=== PATIENT | female | born 1960 | race Caucasian/White ===

== ENCOUNTER 2016-03-22 17:48 | Inpatient (IN) | payer OTHER ==
[2016-03-22 17:55] VITALS: BMI 20.1
--- NOTE | 2016-03-22 19:51 | PDOC ---
History of Present Illness - General History Source: Patient Exam Limitations: No Limitations - History of Present Illness Initial Comments: 03/22/16 19:59 The patient is a 56 year old female with a significant past medical history of Diabetes, Scleroderma HLD, HTN, Rheumatoid arthritis, carpal tunnel syndrome, and depression who presents to the ED s/p right thumb wound for 2 weeks. Patient reports right thumb wound secondary to burning it while she was cooking. She states she visited Urgent care 4 days ago and was told to have an infection of the right thumb and was prescribed Cephalexin with no relief. She states the wound is progressively worsening and now presents with unbearable pain to the right thumb. Patient reports the right thumb wound does not appear worse than before. She states she has recently been carrying her 7 month old nephew with her right arm and reports pain to her right neck radiating down her right arm. Patient visited her PCP 2 weeks ago and has an appointment with Surgery next Thursday. Patient is right hand dominant. Denies fevers or chills. Denies abdominal pain, nausea, vomiting, or diarrhea. Denies chest pain or shortness of breath. Denies cough. Denies dysuria, frequency, urgency, or hematuria. Denies any other symptoms. Carrying nephew with right hand Allergies: Levofloxacin (fever and hives), indomethacin (fever and hives) <Zabrina Esparza - Last Filed: 03/22/16 21:27> - General History Source: Patient, Old Records Exam Limitations: No Limitations <Rica Russell - Last Filed: 03/22/16 21:29> - General Chief Complaint: Wound Infection Stated Complaint: RT HAND BURN/INFECTED WOUND Time Seen by Provider: 03/22/16 19:30 Past History <Zabrina Esparza - Last Filed: 03/22/16 21:27> - Past Medical History Anemia: Yes Diabetes: Yes Hypercholesterolemia: Yes Other medical history: SCLERADERMA - Psycho/Social/Smoking Cessation Hx Suicidal Ideation: No Smoking History: Never smoked Hx Alcohol Use: No Drug/Substance Use Hx: No Substance Use Type: None <Rica Russell - Last Filed: 03/22/16 21:29> - Past Medical History Allergies/Adverse Reactions: Allergies Allergy/AdvReac Type Severity Reaction Status Date / Time indomethacin [From Indocin] Allergy Hives Verified 03/22/16 17:55 indomethacin sodium Allergy Hives Verified 03/22/16 17:55 [From Indocin] levofloxacin [From Levaquin] Allergy Hives Verified 03/22/16 17:55 Home Medications: Ambulatory Orders Atorvastatin Calcium [Lipitor] 20 mg PO HS 03/22/16 Cephalexin [Keflex] 500 mg PO TID 03/22/16 Citalopram Hydrobromide [Celexa -] 30 mg PO HS 03/22/16 Cyclobenzaprine HCl [Flexeril -] 10 mg PO TID PRN 03/22/16 Dexlansoprazole [Dexilant] 60 mg PO DAILY 03/22/16 Fenofibrate Nanocrystallized [Tricor] 145 mg PO DAILY 03/22/16 Glipizide 10 mg PO BID 03/22/16 Metoclopramide HCl [Reglan] 10 mg PO TID PRN 03/22/16 Mycophenolate Mofetil [Cellcept] 1,500 mg PO BID 03/22/16 Nifedipine [Procardia Xl] 30 mg PO DAILY 03/22/16 Ondansetron HCl [Zofran] 8 mg PO Q8H PRN 03/22/16 Prazosin HCl 1 mg PO BID 03/22/16 Prednisolone [Millipred] 5 mg PO DAILY 03/22/16 Ramipril 5 mg PO DAILY 03/22/16 Tramadol HCl 50 mg PO BID 03/22/16 Zolpidem Tartrate [Ambien] 10 mg PO HS PRN 03/22/16 Review of Systems - Review of Systems Able to Perform ROS?: Yes Comments:: 03/22/16 19:59 GENERAL/CONSTITUTIONAL: No fever or chills. No weakness. HEAD, EYES, EARS, NOSE AND THROAT: No change in vision. No ear pain or discharge. No sore throat. CARDIOVASCULAR: No chest pain or shortness of breath. RESPIRATORY: No cough, wheezing, or hemoptysis. GASTROINTESTINAL: No nausea, vomiting, diarrhea or constipation. GENITOURINARY: No dysuria, frequency, or change in urination. MUSCULOSKELETAL: + neck pain, right arm pain. No joint or muscle swelling or pain. No back pain. SKIN: + right thumb lesion NEUROLOGIC: No headache, vertigo, loss of consciousness, or change in strength/ sensation. ENDOCRINE: No increased thirst. No abnormal weight change. HEMATOLOGIC/LYMPHATIC: No anemia, easy bleeding, or history of blood clots. ALLERGIC/IMMUNOLOGIC: No hives or skin allergy. All Other Systems: Reviewed and Negative <Zabrina Esparza - Last Filed: 03/22/16 21:27> *Physical Exam - Vital Signs Last Vital Signs Temp Pulse Resp BP Pulse Ox 97.6 F 115 H 20 111/81 98 03/22/16 17:51 03/22/16 17:51 03/22/16 17:51 03/22/16 17:51 03/22/16 17:51 - Physical Exam Comments: 03/22/16 20:00 GENERAL: Awake, alert, and fully oriented, in no acute distress HEAD: No signs of trauma EYES: PERRLA, EOMI, sclera anicteric, conjunctiva clear ENT: Auricles normal inspection, hearing grossly normal, nares patent, oropharynx clear without exudates. Moist mucosa NECK: Normal ROM, supple, no lymphadenopathy, JVD, or masses LUNGS: Breath sounds equal, clear to auscultation bilaterally. No wheezes, and no crackles HEART: + Fast rate, Regular rhythm, normal S1 and S2, no murmurs, rubs or gallops ABDOMEN: Soft, nontender, normoactive bowel sounds. No guarding, no rebound. No masses EXTREMITIES: Normal range of motion, no edema. No clubbing or cyanosis. No cords, erythema, or tenderness NEUROLOGICAL: Cranial nerves II through XII grossly intact. Normal speech, normal gait SKIN: + ulcerative lesion ot the tip of right thumb. It is necrotic with surrounding edema and erythema, encompasses entire right thumb but not the right hand, radial pulses intact. <Zabrina Esparza - Last Filed: 03/22/16 21:27> - Vital Signs Last Vital Signs Temp Pulse Resp BP Pulse Ox 97.6 F 115 H 20 111/81 98 03/22/16 17:51 03/22/16 17:51 03/22/16 17:51 03/22/16 17:51 03/22/16 17:51 <Rica Russell - Last Filed: 03/22/16 21:29> Heart Score/ECG Review #1 03/22/16 21:27 Reviewed and Interpreted by Dr. Murano Impression: Normal sinus rhythm at at 95 bpm Normal axis deviation No acute ST segment changes <Zabrina Esparza - Last Filed: 03/22/16 21:27> ED Treatment Course - LABORATORY CBC & Chemistry Diagram: 03/22/16 20:10 03/22/16 20:10 <Zabrina Esparza - Last Filed: 03/22/16 21:27> - LABORATORY CBC & Chemistry Diagram: 03/22/16 20:10 03/22/16 20:10 <Rica Russell - Last Filed: 03/22/16 21:29> Medical Decision Making - Medical Decision Making 03/22/16 19:49 56-year-old right hand dominant female with history of scleroderma on chronic prednisone, diabetes, depression, hypertension who presents to the emergency department with 2-3 week history of worsening wound to her right thumb in spite of antibiotics for the past 4 days. Differential diagnosis includes but is not limited to: Osteomyelitis, cellulitis, underlying abscess, sepsis, gangrene, dehydration, electrolyte abnormality, toxic/metabolic derangement. Plan: 1. Labs 2. Plain films of the right hand and chest 3. Urine 4. IV antibiotics 5. Will admit for failed outpatient treatment of cellulitis to the right thumb 6. Observe and reevaluate 7. Pain management 03/22/16 21:28 Addendum: The labs were remarkable for an elevated white blood cell count. The plain films do not appear to have any gas in the soft tissue. I've endorsed the patient to [facility] for IV antibiotics and hand consult for failed outpatient treatment of right thumb cellulitis. <Rica Russell - Last Filed: 03/22/16 21:29> *DC/Admit/Observation/Transfer - Attestations Scribe Attestion: 03/22/16 20:00 Documentation prepared by Zabrina Esparza, acting as medical oncologist for Rica Russell MD <Zabrina Esparza - Last Filed: 03/22/16 21:27> - Discharge Dispostion Admit: Yes - Attestations Physician Attestion: 03/22/16 19:51 I, Dr. Rica Russell, attest that the scribes documentation that appears above has been prepared under my direction and personally reviewed by me in its entirety. I confirmed that the note above accurately reflects all work, treatment, procedures, and medical decision-making performed by me. <Rica Russell - Last Filed: 03/22/16 21:29> Diagnosis at time of Disposition: Cellulitis of right thumb - Discharge Dispostion Condition at time of disposition: Stable - Referrals Referrals: Clinton Garcia MD [Primary Care Provider] -
[2016-03-22] MEDS ORDERED: SODIUM CHLORIDE 1,000 ML IV STA (19:55)
[2016-03-22] MEDS ORDERED: OXYCODONE/APAP 5/325MG COMBO TABLET PO ONE (20:18)
[2016-03-22] MEDS ORDERED: CLINDAMYCIN IVPB 300 MG in DEXTROSE 5%-WATER - 48 ML IVPB ONE (20:18)
[2016-03-22] MEDS ORDERED: OXYCODONE/APAP 5/325MG COMBO TABLET ONE (20:20)
[2016-03-22] MEDS ORDERED: CLINDAMYCIN PHOSPHATE 600 MG/4 ML VIAL ONE (20:20)
[2016-03-22 20:25] LABS: BASOPHIL 0.6 % (0-2.0); EOSINOPHIL 0.3 % (0-4.5); MCH 27.1 pg (25.7-33.7); MCHC 31.6 g/dl (32.0-36.0); MEAN CELL VOLUME 85.8 fl (80-96); NEUTROPHILS 77.7 % (42.8-82.8); PLATELET COUNT 490 K/MM3 (134-434); WHITE BLOOD COUNT 12.4 K/mm3 (4.0-10.0)
[2016-03-22 20:53] LABS: CALCIUM 8.8 mg/dL (8.5-10.1); CREATININE 0.6 mg/dL (0.55-1.02)
[2016-03-22 21:05] LABS: URINE APPEARANCE CLEAR; URINE BILIRUBIN NEGATIVE (NEGATIVE); URINE BLOOD NEGATIVE (NEGATIVE); URINE COLOR YELLOW; URINE GLUCOSE (UA) 3+ (NEGATIVE); URINE KETONE TRACE (NEGATIVE); URINE LEUK ESTERASE NEGATIVE (NEGATIVE); URINE NITRITE NEGATIVE (NEGATIVE); URINE PROTEIN NEGATIVE (NEGATIVE); URINE UROBILINOGEN NEGATIVE E.U./dl (0.2-1.0)
[2016-03-22 21:33] LABS: ERYTHROCYTE SEDIMENTATION RATE 25 mm/hr (0-30)
[2016-03-22 21:38] LABS: MAGNESIUM 1.8 mg/dL (1.8-2.4); PHOSPHOROUS 3.6 mg/dL (2.5-4.9)
[2016-03-22] MEDS ORDERED: ONDANSETRON 4 MG TABLET PO PRN (21:56)
[2016-03-22] MEDS ORDERED: ZOLPIDEM TARTRATE 5 MG TABLET PO PRN (21:56)
[2016-03-22] MEDS ORDERED: METOCLOPRAMIDE HCL 10 MG TABLET (FP) PO PRN (21:56)
[2016-03-22] MEDS ORDERED: CYCLOBENZAPRINE HCL 10 MG TABLET (FP) PO PRN (21:56)
--- NOTE | 2016-03-22 22:05 | HP ---
Admitting History and Physical - Admission Chief Complaint: R thumb infection/pain History of Present Illness: 56 yo white f with hx of scleroderma, htn, hlp, dm, who presents to the er for eval of R thumb pain and redness. she reports due to her scleroderma she gets ulcers on her hands and 2 weeks ago she suffered a burn to her R thumb while getting something from the oven. She went to her PCP on mar 13 who referred her to a hand surgeon, but the pain in the hand progressively got worse and she went to where she was prescribed Keflex. Despite taking the Keflex the finger did not improve. She reports having some decrease ROM in the finger more than usual, increased redness and pain as well. She states the pain is not relieved with her current pain medication. She states it is 8/10 constant and sharp. She denies fever, chill, sweats, cough, nausea, vomiting, diarrhea. She denies chest pain, sob, syncope, palpitations. She denies dysuria, abdominal pain, rash. pmh/psh-scleroderma, htn, hlp, dm, RA, depression social- denies alcohol, tobacco, rec drugs famhx- dad-dm pcp- [place] [facility]- [facility]- [facility] Ros neg except for hpi physical general- thin, in nad hent- at/nc, jennifer, neck supple, trachea midline, no lymphadenopathy resp- no cough, no rales, no wheeze, no ronchi, lungs ctab cards- s1s2 heard, no rubs, no leg edema, extremity pulses +2, RRR skin- Redness, swelling, and eschar to palmar aspect of distal R thumb gi- soft non tender, no rebound, no guarding, no rigidity, no pulsating mass, no distention neuro- cn2-12 intact, jnenifer, speech clear, no seizures, no facial droop pysch- calm, cooperative, no agitation, normal affect musk- decreased flexion/arom to R thumb. swelling to R thumb problem list cellulitis to R thumb dm scleroderma hlp htn sirs criteria depression RA imaging: ekg reviewed ct of thumb pending a/p 56 yo white f with hx of scleroderma, htn, hlp, dm, RA, depression who presents to the er for eval of R thumb pain and redness admitted for evaluation of their emergent condition. 1. Cellulitis to R thumb Pt reportedly had burn accident superimposed on previous ulcer of thumb 2 weeks ago and has had progressive worsening of symptoms despite Keflex which was started ~4 days ago Given Clinda in the ER X ray of thumb negative will check CT finger r/o abscess Given the pt is suppressive therapy will give zosyn and Vanc ID consult Local wound care Pain control Check CRP Consider hand surgeon eval opt 2. DM check A1c Monitor labs SSI 3. HTN Continue home meds 4. HLP Cont home meds 5. Scleroderma Cont home meds 6. Depression Cont home meds 7. RA Cont home meds FEN Diabetic diet DVT prophy OOB, SCD, Hep sq Dispo- will require >2mn stay for acute cellulitis History Source: Patient Limitations to Obtaining History: No Limitations - Smoking History Smoking history: Never smoked - Alcohol/Substance Use Hx Alcohol Use: No Home Medications - Allergies Allergies/Adverse Reactions: Allergies Allergy/AdvReac Type Severity Reaction Status Date / Time indomethacin [From Indocin] Allergy Hives Verified 03/22/16 17:55 indomethacin sodium Allergy Hives Verified 03/22/16 17:55 [From Indocin] levofloxacin [From Levaquin] Allergy Hives Verified 03/22/16 17:55 - Home Medications Home Medications: Ambulatory Orders Atorvastatin Calcium [Lipitor] 20 mg PO HS 03/22/16 Cephalexin [Keflex] 500 mg PO TID 03/22/16 Citalopram Hydrobromide [Celexa -] 30 mg PO HS 03/22/16 Cyclobenzaprine HCl [Flexeril -] 10 mg PO TID PRN 03/22/16 Dexlansoprazole [Dexilant] 60 mg PO DAILY 03/22/16 Fenofibrate Nanocrystallized [Tricor] 145 mg PO DAILY 03/22/16 Glipizide 10 mg PO BID 03/22/16 Metoclopramide HCl [Reglan] 10 mg PO TID PRN 03/22/16 Mycophenolate Mofetil [Cellcept] 1,500 mg PO BID 03/22/16 Nifedipine [Procardia Xl] 30 mg PO DAILY 03/22/16 Ondansetron HCl [Zofran] 8 mg PO Q8H PRN 03/22/16 Prazosin HCl 1 mg PO BID 03/22/16 Prednisolone [Millipred] 5 mg PO DAILY 03/22/16 Ramipril 5 mg PO DAILY 03/22/16 Tramadol HCl 50 mg PO BID 03/22/16 Zolpidem Tartrate [Ambien] 10 mg PO HS PRN 03/22/16 Physical Examination Vital Signs: Vital Signs Temperature 97.6 F 03/22/16 17:51 Pulse Rate 115 H 03/22/16 17:51 Respiratory Rate 20 03/22/16 17:51 Blood Pressure 111/81 03/22/16 17:51 O2 Sat by Pulse Oximetry (%) 98 03/22/16 17:51 Labs: CBC, BMP 03/22/16 20:10 03/22/16 20:10 Visit type - Emergency Visit Emergency Visit: Yes ED Registration Date: 03/22/16 Care time: The patient presented to the Emergency Department on the above date and was hospitalized for further evaluation of their emergent condition. - New Patient This patient is new to me today: Yes Date on this admission: 03/23/16 - Critical Care Critical Care patient: No
[2016-03-22] MEDS ORDERED: VANCOMYCIN 1 GRAM (PRE-DOCKED) 250 ML IVPB ONE ×2 (22:33→23:31)
[2016-03-22] MEDS ORDERED: PIPERACILLIN/TAZOB 3.375 GM 50 ML IVPB ONE ×2 (22:33→23:32)
[2016-03-22] MEDS ORDERED: traMADol HCL 50 MG TABLET ONE (23:08)
[2016-03-22] MEDS: ATORVASTATIN CA 20 MG TABLET (FP) PO SCH (23:16)
[2016-03-22] MEDS: CITALOPRAM HYDROBROMIDE 10 MG TABLET (FP) PO SCH (23:16)
[2016-03-22] MEDS: MYCOPHENOLATE MOFETIL 500 MG TABLET PO SCH (23:16)
[2016-03-22] MEDS: PRAZOSIN HCL 1 MG CAPSULE PO SCH (23:17)
[2016-03-22] MEDS: traMADol HCL 50 MG TABLET PO SCH (23:17)
[2016-03-22 23:27] LABS: C-REACTIVE PROTEIN 0.7 MG/DL (0.00-0.3)
[2016-03-23] MEDS: oxyCODONE HCL 5 MG TABLET PO PRN ×2 (03:17→09:09)
[2016-03-23] MEDS ORDERED: morphine CARPU-JECT 2 MG/1 ML DISP.SYRIN IVPB ONE (04:38)
[2016-03-23] MEDS: INSULIN SLIDING SCALE (NOVOLOG) 1 VIAL SQ SCH ×3 (06:12→17:02)
[2016-03-23] MEDS: traMADol HCL 50 MG TABLET PO SCH ×2 (07:57→21:55)
[2016-03-23] MEDS ORDERED: traMADol HCL 50 MG TABLET PO ONE (08:00)
[2016-03-23 09:00] LABS: BASOPHIL 0.8 % (0-2.0); EOSINOPHIL 0.8 % (0-4.5); MCH 28.5 pg (25.7-33.7); MCHC 33.3 g/dl (32.0-36.0); MEAN CELL VOLUME 85.6 fl (80-96); MEAN PLT VOLUME 8.8 fl (7.5-11.1); PLATELET COUNT 436 K/MM3 (134-434); RDW 13.5 % (11.6-15.6); WHITE BLOOD COUNT 7.6 K/mm3 (4.0-10.0)
[2016-03-23] MEDS ORDERED: PT OWN MED DRAWER 7, Y5N ONE ×2 (09:17→19:47)
[2016-03-23] MEDS: RAMIPRIL 5 MG CAPSULE (FP) PO SCH (09:18)
[2016-03-23] MEDS: PANTOPRAZOLE 40 MG TABLET (FP) PO SCH (09:18)
[2016-03-23] MEDS: FENOFIBRIC ACID 135 MG CAP PO SCH (09:18)
[2016-03-23] MEDS: NIFEdipine E.R. 30 MG TABLET (FP) PO SCH (09:18)
[2016-03-23] MEDS: HEPARIN NA (PORCINE) 5,000 UNITS/ML 1ML VIAL SQ SCH ×2 (09:19→21:58)
[2016-03-23 09:22] LABS: ALBUMIN 3.4 g/dl (3.4-5.0); ANION GAP 3 (8-16); BILIRUBIN,TOTAL 0.4 mg/dL (0.2-1.0); CALCIUM 8.6 mg/dL (8.5-10.1); CO2 26 mmol/L (21-32); CREATININE 0.4 mg/dL (0.55-1.02); GLUCOSE,RANDOM 150 mg/dL (74-106); SGOT/AST 20 U/L (15-37); SGPT/ALT 19 U/L (12-78); TOT PROT 6.4 g/dl (6.4-8.2)
[2016-03-23 09:24] LABS: ALK PHOS 57 U/L (45-117)
[2016-03-23] MEDS ORDERED: prednisoLONE SODIUM PHOSPHATE 15 MG/5 ML ORAL SOLN BOTTLE PO SCH (10:00)
[2016-03-23] MEDS: PRAZOSIN HCL 1 MG CAPSULE PO SCH ×2 (10:56→21:58)
[2016-03-23] MEDS: MYCOPHENOLATE MOFETIL 500 MG TABLET PO SCH ×2 (11:08→21:57)
--- NOTE | 2016-03-23 13:20 | EKG ---
Test Reason : Blood Pressure : / mmHG Vent. Rate : 097 BPM Atrial Rate : 097 BPM P-R Int : 144 ms QRS Dur : 082 ms QT Int : 370 ms P-R-T Axes : 064 -46 043 degrees QTc Int : 469 ms NORMAL SINUS RHYTHM LEFT AXIS DEVIATION PROLONGED QT ABNORMAL ECG Confirmed by MD MAGALIE, ALEX ([id number]) on 03/23/2016 1:19:54 PM Referred By: Overread By: ALEX MEJIAS MD
[2016-03-23] MEDS: morphine CARPU-JECT 2 MG/1 ML DISP.SYRIN IVPUSH PRN ×3 (14:50→23:06)
[2016-03-23] MEDS: predniSONE 5 MG TABLET (UD) PO SCH (14:54)
--- NOTE | 2016-03-23 15:11 | CONSULT ---
Consult Consult Specialty:: infectious diseases Reason for Consultation:: infected finger - History of Present Illness Chief Complaint: pain and swelling and burn of the thumb rt History of Present Illness: 56 yo white f with hx of scleroderma, htn, hlp, dm, who presents to the er for eval of R thumb pain and redness. she reports due to her scleroderma she gets ulcers on her hands and 2 weeks ago she suffered a burn to her R thumb while getting something from the oven. patient was started on keflex and as far as she is saying she was evaluated by the hand surgeon patient did not improve inspite of treatment and comes to the hospital with swelling of the finger very tender and redness of the thumb patient hasd imaging studies done except that patient is denying everything and denies any fevers patient is on immunosuppresion and steroids - History Source History Provided By: Patient Limitations to Obtaining History: No Limitations - Alcohol/Substance Use Hx Alcohol Use: No - Smoking History Smoking history: Never smoked Have you smoked in the past 12 months: No Home Medications - Allergies Allergies/Adverse Reactions: Allergies Allergy/AdvReac Type Severity Reaction Status Date / Time indomethacin [From Indocin] Allergy Hives Verified 03/22/16 17:55 indomethacin sodium Allergy Hives Verified 03/22/16 17:55 [From Indocin] levofloxacin [From Levaquin] Allergy Hives Verified 03/22/16 17:55 - Home Medications Home Medications: Ambulatory Orders Atorvastatin Calcium [Lipitor] 20 mg PO HS 03/22/16 Cephalexin [Keflex] 500 mg PO TID 03/22/16 Citalopram Hydrobromide [Celexa -] 30 mg PO HS 03/22/16 Cyclobenzaprine HCl [Flexeril -] 10 mg PO TID PRN 03/22/16 Dexlansoprazole [Dexilant] 60 mg PO DAILY 03/22/16 Fenofibrate Nanocrystallized [Tricor] 145 mg PO DAILY 03/22/16 Glipizide 10 mg PO BID 03/22/16 Metoclopramide HCl [Reglan] 10 mg PO TID PRN 03/22/16 Mycophenolate Mofetil [Cellcept] 1,500 mg PO BID 03/22/16 Nifedipine [Procardia Xl] 30 mg PO DAILY 03/22/16 Ondansetron HCl [Zofran] 8 mg PO Q8H PRN 03/22/16 Prazosin HCl 1 mg PO BID 03/22/16 Prednisolone [Millipred] 5 mg PO DAILY 03/22/16 Ramipril 5 mg PO DAILY 03/22/16 Tramadol HCl 50 mg PO BID 03/22/16 Zolpidem Tartrate [Ambien] 10 mg PO HS PRN 03/22/16 Review of Systems - Review of Systems Constitutional: reports: No Symptoms Eyes: reports: No Symptoms HENT: reports: No Symptoms Neck: reports: No Symptoms Cardiovascular: reports: No Symptoms Respiratory: reports: No Symptoms Gastrointestinal: reports: No Symptoms Musculoskeletal: reports: Joint Pain, Muscle Pain, Other Integumentary: reports: Change in Color, Erythema Neurological: reports: No Symptoms Endocrine: reports: No Symptoms Hematology/Lymphatic: reports: No Symptoms Psychiatric: reports: No Symptoms Physical Exam Vital Signs: Vital Signs Temperature 98.2 F 03/23/16 14:17 Pulse Rate 87 03/23/16 09:00 Respiratory Rate 20 03/23/16 14:17 Blood Pressure 97/63 03/23/16 14:17 O2 Sat by Pulse Oximetry (%) 98 03/23/16 09:00 Constitutional: Yes: Thin, Other Eyes: Yes: Conjunctiva Clear HENT: Yes: Atraumatic, Normocephalic Neck: Yes: Supple Cardiovascular: Yes: Regular Rate and Rhythm Respiratory: Yes: Regular, CTA Bilaterally Gastrointestinal: Yes: Normal Bowel Sounds, Soft Musculoskeletal: Yes: Other Extremities: Yes: WNL Integumentary: Yes: Erythema, Other (scab at the burn site tenderness on the rt thumb) Wound/Incision: Yes: Clean/Dry, Open to air Neurological: Yes: Alert, Oriented Psychiatric: Yes: Alert, Oriented Labs: CBC, BMP 03/23/16 07:30 03/23/16 07:30 Imaging - Results Chest X-ray: Report Reviewed, Image Reviewed X-ray: Report Reviewed, Image Reviewed Cat Scan: Image Reviewed Assessment/Plan . Cellulitis to R thumb 2. DM 3. HTN 4. HLP 5. Scleroderma 6. Depression 7. RA patient quite a serious case of scleroderma and now with burn with some treatment and not improving plan started patient on abx await for hand surgeon to evaluate
--- NOTE | 2016-03-23 15:19 | PN ---
Physical Exam: SUBJECTIVE: Patient seen and examined at bedside. Has severe pain in the right thumb. OBJECTIVE: Vital Signs Period Temp Pulse Resp BP Sys/Fisher Pulse Ox Last 24 Hr 97.5 F-98.2 F 87-92 18-20 97-120/63-83 98-99 GENERAL: The patient is awake, alert, and fully oriented, in mild distress from pain to right thumb. HEAD: Normal with no signs of trauma. EYES: PERRL, extraocular movements intact, sclera anicteric, conjunctiva clear. No ptosis. MOUTH: missing teeth LUNGS: Breath sounds equal, clear to auscultation bilaterally, no wheezes, no crackles, no accessory muscle use. HEART: Regular rate and rhythm, S1, S2 without murmur, rub or gallop. ABDOMEN: Soft, nontender, nondistended, normoactive bowel sounds RIHT HAND: Right thumb swollen and erythematous from base to nail; tip of finger is covered with necrotic-appearing tissue; exquisitely tender EXTREMITIES: 2+ pulses, warm, well-perfused, no edema. NEUROLOGICAL: Cranial nerves II through XII grossly intact. Normal speech, gait not observed. PSYCH: Normal mood, normal affect. SKIN: Thick, hardened, waxy appearing skin Laboratory Results - last 24 hr 03/23/16 03/23/16 03/23/16 05:45 07:30 07:30 WBC 7.6 D RBC 4.24 Hgb 12.1 Hct 36.3 MCV 85.6 MCHC 33.3 RDW 13.5 Plt Count 436 H MPV 8.8 Neutrophils % 72.0 Lymphocytes % 16.5 Monocytes % 9.9 Eosinophils % 0.8 D Basophils % 0.8 Sodium 130 L Potassium 3.7 Chloride 101 Carbon Dioxide 26 Anion Gap 3 L BUN 10 D Creatinine 0.4 L D Creat Clearance w eGFR > 60 POC Glucometer 220 Random Glucose 150 H D Hemoglobin A1c % Calcium 8.6 Total Bilirubin 0.4 AST 20 ALT 19 Alkaline Phosphatase 57 Total Protein 6.4 Albumin 3.4 03/23/16 03/23/16 07:30 11:18 WBC RBC Hgb Hct MCV MCHC RDW Plt Count MPV Neutrophils % Lymphocytes % Monocytes % Eosinophils % Basophils % Sodium Potassium Chloride Carbon Dioxide Anion Gap BUN Creatinine Creat Clearance w eGFR POC Glucometer 251 Random Glucose Hemoglobin A1c % 11.4 H Calcium Total Bilirubin AST ALT Alkaline Phosphatase Total Protein Albumin Active Medications Generic Name Dose Route Start Last Admin Trade Name Freq PRN Reason Stop Dose Admin Atorvastatin Calcium 20 mg 03/22/16 22:00 03/22/16 23:16 Lipitor - PO 20 mg HS RICKY Administration Citalopram Hydrobromide 30 mg 03/22/16 22:00 03/22/16 23:16 Celexa - PO 30 mg HS RICKY Administration Cyclobenzaprine HCl 10 mg 03/22/16 21:56 Flexeril - PO TID PRN PAIN Fenofibric Acid 135 mg 03/23/16 10:00 03/23/16 09:18 Trilipix - PO 135 mg DAILY RICKY Administration Heparin Sodium (Porcine) 5,000 unit 03/23/16 10:00 03/23/16 09:19 Heparin - SQ 5,000 unit BID RICKY Administration Piperacillin Sod/Tazobactam 50 mls @ 100 mls/hr 03/23/16 18:00 Sod 2.25 gm/ Dextrose IVPB Q8H-IV RICKY Insulin Aspart 1 vial 03/23/16 07:00 03/23/16 11:20 Novolog Vial Sliding Scale - SQ 3 units TIDAC RICKY Administration Protocol Metoclopramide HCl 10 mg 03/22/16 21:56 Reglan - PO TID PRN NAUSEA AND/OR VOMITING Morphine Sulfate 2 mg 03/23/16 14:27 03/23/16 14:50 Morphine Injection - IVPUSH 2 mg Q4H PRN Administration PAIN Mycophenolate Mofetil 1,500 mg 03/22/16 22:00 03/23/16 11:08 Cellcept - PO 1,500 mg BID RICKY Administration Nifedipine 30 mg 03/23/16 10:00 03/23/16 09:18 Procardia Xl - PO 30 mg DAILY RICKY Administration Ondansetron HCl 8 mg 03/22/16 21:56 Zofran - PO Q8H PRN NAUSEA AND/OR VOMITING Oxycodone HCl 5 mg 03/22/16 22:03 03/23/16 09:09 Roxicodone - PO 5 mg Q6H PRN Administration SEVERE PAIN Pantoprazole Sodium 40 mg 03/23/16 10:00 03/23/16 09:18 Protonix - PO 40 mg DAILY RICKY Administration Prazosin HCl 1 mg 03/22/16 22:00 03/23/16 10:56 Minipress - PO 1 mg BID RICKY Administration Prednisone 5 mg 03/23/16 14:00 03/23/16 14:54 Deltasone - PO 5 mg DAILY RICKY Administration Ramipril 5 mg 03/23/16 10:00 03/23/16 09:18 Altace - PO 5 mg DAILY RICKY Administration Tramadol HCl 50 mg 03/22/16 22:00 03/23/16 07:57 Ultram - PO 50 mg BID RICKY Administration Zolpidem Tartrate 10 mg 03/22/16 21:56 Ambien - PO HS PRN INSOMNIA ASSESSMENT/PLAN: 56 year old female with a significant PMH of HTN, HLD, scleroderma, RA, DM, carpal tunnel syndrome, and depression. Admitted for cellulitis of right thumb. Cellulitis of right thumb --continue Zosyn (day #1) --hand surgery consult requested --morphine, tylenol, ultram PRN for pain Hypertension --continue prazosin, ramipril, nifedipine Hyperlipidemia --continue Lipitor, fenofibric acid Scleroderma --continue Cellcept, prednisone, cyclobenzaprine, reglan, Zofran DM --HgbA1C 11.4 --Novolog sliding scale coverage Carpal tunnel syndrome Depression --continue citalopram F/E/N Fluids: PO intake adequate Electrolytes: replete as indicated Nutrition: diabetic low sodium diet DVT prophylaxis: subq heparin, oob, ambulation Dispo: continues to require inpatient care. Full Code. Visit type - Emergency Visit Emergency Visit: Yes ED Registration Date: 03/22/16 Care time: The patient presented to the Emergency Department on the above date and was hospitalized for further evaluation of their emergent condition. - New Patient This patient is new to me today: Yes Date on this admission: 03/23/16 - Critical Care Critical Care patient: No
[2016-03-23] MEDS ORDERED: AMPICILLIN NA/SULBACTAM NA 3 GM in SODIUM CHLORIDE 100 ML IVPB SCH (18:00)
[2016-03-23] MEDS: PIPERACILLIN/TAZOB 2.25 GM 50 ML IVPB SCH (18:24)
[2016-03-23] MEDS: CITALOPRAM HYDROBROMIDE 10 MG TABLET (FP) PO SCH (21:55)
[2016-03-23] MEDS: ATORVASTATIN CA 20 MG TABLET (FP) PO SCH (21:56)
[2016-03-23] MEDS ORDERED: BACITRACIN 30 GM TUBE TOPICAL OINTMENT TP SCH (22:00)
[2016-03-24] MEDS: PIPERACILLIN/TAZOB 2.25 GM 50 ML IVPB SCH ×3 (01:21→17:36)
[2016-03-24] MEDS ORDERED: INSULIN (NOVOLOG) ASPART 100 UNITS/ML 10ML VIAL ONE ×2 (06:25→17:46)
[2016-03-24] MEDS: INSULIN SLIDING SCALE (NOVOLOG) 1 VIAL SQ SCH ×3 (06:28→17:48)
[2016-03-24] MEDS: morphine CARPU-JECT 2 MG/1 ML DISP.SYRIN IVPUSH PRN ×3 (06:33→17:30)
[2016-03-24] MEDS ORDERED: PT OWN MED DRAWER 7, Y5N ONE (09:59)
[2016-03-24] MEDS: RAMIPRIL 5 MG CAPSULE (FP) PO SCH (10:08)
[2016-03-24] MEDS: predniSONE 5 MG TABLET (UD) PO SCH (10:08)
[2016-03-24] MEDS: traMADol HCL 50 MG TABLET PO SCH (10:09)
[2016-03-24] MEDS: PRAZOSIN HCL 1 MG CAPSULE PO SCH (10:11)
[2016-03-24] MEDS: NIFEdipine E.R. 30 MG TABLET (FP) PO SCH (10:11)
[2016-03-24] MEDS: MYCOPHENOLATE MOFETIL 500 MG TABLET PO SCH (10:11)
[2016-03-24] MEDS: PANTOPRAZOLE 40 MG TABLET (FP) PO SCH (10:11)
[2016-03-24] MEDS: FENOFIBRIC ACID 135 MG CAP PO SCH (10:11)
[2016-03-24] MEDS: HEPARIN NA (PORCINE) 5,000 UNITS/ML 1ML VIAL SQ SCH (10:12)
[2016-03-24 10:25] LABS: BASOPHIL 0.6 % (0-2.0); EOSINOPHIL 0.6 % (0-4.5); MCH 28.1 pg (25.7-33.7); MCHC 32.8 g/dl (32.0-36.0); MEAN CELL VOLUME 85.8 fl (80-96); MEAN PLT VOLUME 8.2 fl (7.5-11.1); NEUTROPHILS 69.9 % (42.8-82.8); PLATELET COUNT 436 K/MM3 (134-434); RDW 13.5 % (11.6-15.6); WHITE BLOOD COUNT 6.9 K/mm3 (4.0-10.0)
[2016-03-24 10:46] LABS: ALBUMIN 3.8 g/dl (3.4-5.0); ANION GAP 9 (8-16); CALCIUM 9.2 mg/dL (8.5-10.1); CO2 27 mmol/L (21-32); CREATININE 0.5 mg/dL (0.55-1.02); GLUCOSE,RANDOM 236 mg/dL (74-106); MAGNESIUM 1.7 mg/dL (1.8-2.4); SGOT/AST 13 U/L (15-37); SGPT/ALT 18 U/L (12-78)
[2016-03-24 10:48] LABS: ALK PHOS 58 U/L (45-117); BILIRUBIN,TOTAL 0.5 mg/dL (0.2-1.0); TOT PROT 6.9 g/dl (6.4-8.2)
[2016-03-24] MEDS ORDERED: MAGNESIUM OXIDE 400 MG TABLET (FP) PO ONE (11:08)
--- NOTE | 2016-03-24 18:04 | DS ---
Physical Exam: SUBJECTIVE: Patient seen and examined. OBJECTIVE: Vital Signs Period Temp Pulse Resp BP Sys/Fisher Pulse Ox Last 24 Hr 97.4 F-98.2 F 92-106 16-18 97-120/57-78 98 PHYSICAL EXAM GENERAL: The patient is awake, alert, and fully oriented, in mild distress from pain to right thumb. HEAD: Normal with no signs of trauma. EYES: PERRL, extraocular movements intact, sclera anicteric, conjunctiva clear. No ptosis. MOUTH: missing teeth LUNGS: Breath sounds equal, clear to auscultation bilaterally, no wheezes, no crackles, no accessory muscle use. HEART: Regular rate and rhythm, S1, S2 without murmur, rub or gallop. ABDOMEN: Soft, nontender, nondistended, normoactive bowel sounds RIHT HAND: Right thumb swollen and erythematous from base to nail; tip of finger is covered with necrotic-appearing tissue; exquisitely tender; erythema and swelling is significantly increased today from yesterday EXTREMITIES: 2+ pulses, warm, well-perfused, no edema. NEUROLOGICAL: Cranial nerves II through XII grossly intact. Normal speech, gait not observed. PSYCH: Normal mood, normal affect. SKIN: Thick, hardened, waxy appearing skin Laboratory Results - last 24 hr 03/24/16 03/24/16 03/24/16 05:44 10:20 10:20 WBC 6.9 RBC 4.46 Hgb 12.6 Hct 38.3 MCV 85.8 MCHC 32.8 RDW 13.5 Plt Count 436 H MPV 8.2 Neutrophils % 69.9 Lymphocytes % 18.9 Monocytes % 10.0 Eosinophils % 0.6 Basophils % 0.6 Sodium 136 Potassium 4.0 Chloride 100 Carbon Dioxide 27 Anion Gap 9 BUN 12 Creatinine 0.5 L D Creat Clearance w eGFR > 60 POC Glucometer 226 Random Glucose 236 H D Calcium 9.2 Magnesium 1.7 L Total Bilirubin 0.5 D AST 13 L D ALT 18 Alkaline Phosphatase 58 Total Protein 6.9 Albumin 3.8 03/24/16 12:22 WBC RBC Hgb Hct MCV MCHC RDW Plt Count MPV Neutrophils % Lymphocytes % Monocytes % Eosinophils % Basophils % Sodium Potassium Chloride Carbon Dioxide Anion Gap BUN Creatinine Creat Clearance w eGFR POC Glucometer 331 Random Glucose Calcium Magnesium Total Bilirubin AST ALT Alkaline Phosphatase Total Protein Albumin Current Medications Generic Name Dose Route Start Last Admin Trade Name Freq PRN Reason Stop Dose Admin Atorvastatin Calcium 20 mg 03/22/16 22:00 03/23/16 21:56 Lipitor - PO 20 mg HS RICKY Administration Bacitracin 1 applic 03/23/16 22:00 03/23/16 21:57 Bacitracin - TP 1 applic DAILY RICKY Administration Citalopram Hydrobromide 30 mg 03/22/16 22:00 03/23/16 21:55 Celexa - PO 30 mg HS RICKY Administration Cyclobenzaprine HCl 10 mg 03/22/16 21:56 Flexeril - PO TID PRN PAIN Fenofibric Acid 135 mg 03/23/16 10:00 03/24/16 10:11 Trilipix - PO 135 mg DAILY RICKY Administration Heparin Sodium (Porcine) 5,000 unit 03/23/16 10:00 03/24/16 10:12 Heparin - SQ 5,000 unit BID RICKY Administration Piperacillin Sod/Tazobactam Sod 50 mls @ 100 mls/hr 03/23/16 18:00 03/24/16 17: 36 Zosyn 2.25gm Ivpb (Pre-Docked) IVPB 100 mls/hr Q8H-IV RICKY Administration Insulin Aspart 1 vial 03/23/16 07:00 03/24/16 17:48 Novolog Vial Sliding Scale - SQ 4 units TIDAC RICKY Administration Protocol Metoclopramide HCl 10 mg 03/22/16 21:56 Reglan - PO TID PRN NAUSEA AND/OR VOMITING Morphine Sulfate 2 mg 03/23/16 14:27 03/24/16 17:30 Morphine Injection - IVPUSH 2 mg Q4H PRN Administration PAIN Mycophenolate Mofetil 1,500 mg 03/22/16 22:00 03/24/16 10:11 Cellcept - PO 1,500 mg BID RICKY Administration Nifedipine 30 mg 03/23/16 10:00 03/24/16 10:11 Procardia Xl - PO 30 mg DAILY RICKY Administration Ondansetron HCl 8 mg 03/22/16 21:56 Zofran - PO Q8H PRN NAUSEA AND/OR VOMITING Pantoprazole Sodium 40 mg 03/23/16 10:00 03/24/16 10:11 Protonix - PO 40 mg DAILY RICKY Administration Prazosin HCl 1 mg 03/22/16 22:00 03/24/16 10:11 Minipress - PO 1 mg BID RICKY Administration Prednisone 5 mg 03/23/16 14:00 03/24/16 10:08 Deltasone - PO 5 mg DAILY RICKY Administration Ramipril 5 mg 03/23/16 10:00 03/24/16 10:08 Altace - PO 5 mg DAILY RICKY Administration Tramadol HCl 50 mg 03/22/16 22:00 03/24/16 10:09 Ultram - PO 50 mg BID RICKY Administration Zolpidem Tartrate 10 mg 03/22/16 21:56 03/23/16 21:56 Ambien - PO 10 mg HS PRN Administration INSOMNIA HOSPITAL COURSE: Date of Admission:03/22/16 Date of Discharge: 03/24/16 Pre hospital course 56 yo white f with hx of scleroderma, htn, hlp, dm, who presents to the er for eval of R thumb pain and redness. she reports due to her scleroderma she gets ulcers on her hands and 2 weeks ago she suffered a burn to her R thumb while getting something from the oven. She went to her PCP on mar 13 who referred her to a hand surgeon, but the pain in the hand progressively got worse and she went to where she was prescribed Keflex. Despite taking the Keflex the finger did not improve. She reports having some decrease ROM in the finger more than usual, increased redness and pain as well. She states the pain is not relieved with her current pain medication. She states it is 8/10 constant and sharp. She denies fever, chill, sweats, cough, nausea, vomiting, diarrhea. She denies chest pain, sob, syncope, palpitations. She denies dysuria, abdominal pain, rash. Hospital course by assessment and plan Cellulitis of right thumb --erythema and swelling significantly worse today --continue Zosyn (day #2) --no hand/plastic surgeon available until tomorrow late afternoon/evening --accepted for transfer to [facility] to medical service and plastics will see and evaluate the patient --morphine, tylenol, ultram PRN for pain Hypertension --continued prazosin, ramipril, nifedipine Hyperlipidemia --continued Lipitor, fenofibric acid Scleroderma --continued Cellcept, prednisone, cyclobenzaprine, reglan, Zofran DM --HgbA1C 11.4 --Novolog sliding scale coverage Carpal tunnel syndrome Depression --continued citalopram F/E/N Fluids: PO intake adequate Electrolytes: repleted as needed Nutrition: diabetic low sodium diet DVT prophylaxis: subq heparin, oob, ambulation Minutes to complete discharge: 35 Discharge Summary Reason For Visit: CELLULITIS OF RIGHT THUMB Current Active Problems Cellulitis of right thumb (Acute) Condition: Stable - Instructions Referrals: Clinton Garcia MD [Primary Care Provider] - Disposition: TRANSFER ACUTE CARE/OTHER HOSP - Home Medications Comprehensive Discharge Medication List: Ambulatory Orders Atorvastatin Calcium [Lipitor] 20 mg PO HS 03/22/16 Citalopram Hydrobromide [Celexa -] 30 mg PO HS 03/22/16 Cyclobenzaprine HCl [Flexeril -] 10 mg PO TID PRN 03/22/16 Dexlansoprazole [Dexilant -] 60 mg PO DAILY 03/22/16 Fenofibrate Nanocrystallized [Tricor] 145 mg PO DAILY 03/22/16 Metoclopramide HCl [Reglan] 10 mg PO TID PRN 03/22/16 Mycophenolate Mofetil [Cellcept] 1,500 mg PO BID 03/22/16 Nifedipine [Procardia Xl] 30 mg PO DAILY 03/22/16 Prazosin HCl 1 mg PO BID 03/22/16 Ramipril 5 mg PO DAILY 03/22/16 Tramadol HCl 50 mg PO BID 03/22/16 Bacitracin - [Bacitracin Topical Ointment -] 1 applic TP DAILY tube 03/24/16 Heparin - 5,000 unit SQ BID vial 03/24/16 Insulin Sliding Scale [Novolog Vial Sliding Scale -] 1 vial SQ TIDAC units 05/09 Morphine Injection - [Morphine Injection 2 mg/1 mL -] 2 mg IVPUSH Q4H PRN #0 disp.syrin MDD 12 03/24/16 Ondansetron [Zofran -] 8 mg PO Q8H PRN #0 tablet 03/24/16 Piperacillin/Tazob 2.25 gm [Zosyn 2.25GM Ivpb (Pre-Docked)] 50 ml IVPB Q8H-IV bag 03/24/16 Prednisone [Deltasone -] 5 mg PO DAILY tablet 03/24/16 This patient is new to me today: Yes Date on this admission: 03/24/16 Emergency Visit: Yes ED Registration Date: 03/22/16 Care time: The patient presented to the Emergency Department on the above date and was hospitalized for further evaluation of their emergent condition. Critical Care patient: No - Discharge Referral Referred to [facility] No
--- NOTE | 2016-03-24 18:48 | PN ---
Progress Note, Physician History of Present Illness: patient whose finger has worsened and is complaining a lot of pain swelling has increased - Current Medication List Current Medications: Active Medications Atorvastatin Calcium (Lipitor -) 20 mg PO HS [facility] Last Admin: 03/23/16 21:56 Dose: 20 mg Bacitracin (Bacitracin -) 1 applic TP DAILY [facility] Last Admin: 03/23/16 21:57 Dose: 1 applic Citalopram Hydrobromide (Celexa -) 30 mg PO HS [facility] Last Admin: 03/23/16 21:55 Dose: 30 mg Cyclobenzaprine HCl (Flexeril -) 10 mg PO TID PRN PRN Reason: PAIN Fenofibric Acid (Trilipix -) 135 mg PO DAILY [facility] Last Admin: 03/24/16 10:11 Dose: 135 mg Heparin Sodium (Porcine) (Heparin -) 5,000 unit SQ BID [facility] Last Admin: 03/24/16 10:12 Dose: 5,000 unit Piperacillin Sod/Tazobactam Sod (Zosyn 2.25gm Ivpb (Pre-Docked)) 50 mls @ 100 mls/hr IVPB Q8H-IV [facility] Last Admin: 03/24/16 17:36 Dose: 100 mls/hr Insulin Aspart (Novolog Vial Sliding Scale -) 1 vial SQ TIDAC [facility] PRN Reason: Protocol Last Admin: 03/24/16 17:48 Dose: 4 units Metoclopramide HCl (Reglan -) 10 mg PO TID PRN PRN Reason: NAUSEA AND/OR VOMITING Morphine Sulfate (Morphine Injection -) 2 mg IVPUSH Q4H PRN PRN Reason: PAIN Last Admin: 03/24/16 17:30 Dose: 2 mg Mycophenolate Mofetil (Cellcept -) 1,500 mg PO BID [facility] Last Admin: 03/24/16 10:11 Dose: 1,500 mg Nifedipine (Procardia Xl -) 30 mg PO DAILY [facility] Last Admin: 03/24/16 10:11 Dose: 30 mg Ondansetron HCl (Zofran -) 8 mg PO Q8H PRN PRN Reason: NAUSEA AND/OR VOMITING Pantoprazole Sodium (Protonix -) 40 mg PO DAILY [facility] Last Admin: 03/24/16 10:11 Dose: 40 mg Prazosin HCl (Minipress -) 1 mg PO BID [facility] Last Admin: 03/24/16 10:11 Dose: 1 mg Prednisone (Deltasone -) 5 mg PO DAILY [facility] Last Admin: 03/24/16 10:08 Dose: 5 mg Ramipril (Altace -) 5 mg PO DAILY [facility] Last Admin: 03/24/16 10:08 Dose: 5 mg Tramadol HCl (Ultram -) 50 mg PO BID [facility] Last Admin: 03/24/16 10:09 Dose: 50 mg Zolpidem Tartrate (Ambien -) 10 mg PO HS PRN PRN Reason: INSOMNIA Last Admin: 03/23/16 21:56 Dose: 10 mg - Objective Vital Signs: Vital Signs Temperature 97.4 F L 03/24/16 14:21 Pulse Rate 92 H 03/24/16 14:21 Respiratory Rate 18 03/24/16 14:21 Blood Pressure 98/57 03/24/16 14:21 O2 Sat by Pulse Oximetry (%) 98 03/24/16 11:00 Constitutional: Yes: Calm, Moderate Distress Cardiovascular: Yes: Regular Rate and Rhythm Respiratory: Yes: Regular, Poor Air Entry Gastrointestinal: Yes: Normal Bowel Sounds, Soft Musculoskeletal: Yes: Other Extremities: Yes: Other Integumentary: Yes: Erythema, Other (swelling has increased) Neurological: Yes: Alert, Oriented Psychiatric: Yes: Alert Labs: CBC, BMP 03/24/16 10:20 03/24/16 10:20 Assessment/Plan . Cellulitis to R thumb 2. DM 3. HTN 4. HLP 5. Scleroderma 6. Depression 7. RA plan continue abx rest as per medicine team
[2016-03-24 19:23] VITALS: BP 102/72; PULSE 104; TEMP 97.8
== END 2016-03-24 20:49 | disposition short-term general hospital (02) | DRG 603 ==
LOC: JER 17:48 → JERBED 21:30 → UNDOADMIN 21:32 → JERBED 21:32 → J5S 23:58
PROVIDERS: ADMIT Internal Medicine; ATTEND Nurse Practitioner Acute Care
DX: L03.011 Cellulitis of right finger (principal); I10 Essential (primary) hypertension; E11.9 Type 2 diabetes mellitus without complications; E78.5 Hyperlipidemia, unspecified; F32.9 Major depressive disorder, single episode, unspecified; M34.9 Systemic sclerosis, unspecified; G56.00 Carpal tunnel syndrome, unspecified upper limb; M06.9 Rheumatoid arthritis, unspecified
CPT/HCPCS: 36415; 71020-TC; 73130-TC-RT; 73200-TC-RT; 80048; 80053; 81003; 83036; 83605; 83735; 84100; 85025; 85651; 86140; 87040; 87086; 93005; 93010; 99282-25; 99283-25; J1644; J7517

== ENCOUNTER 2017-08-03 13:40 | Inpatient (IN) | payer OTHER ==
[2017-07-31 16:01] VITALS: BMI 20.9
[2017-08-03] MEDS ORDERED: MIDAZOLAM HCL 2 MG/2 ML SINGLE DOSE VIAL ONE (15:14)
[2017-08-03] MEDS ORDERED: BUPIVACAINE HCL/PF 0.5% (5MG/ML) 10 ML VIAL ONE (15:16)
--- NOTE | 2017-08-03 15:25 | HP ---
Admitting History and Physical - Admission Chief Complaint: Right hip fracture History of Present Illness: 57 yo female with many medical comorbidities fell 07/25/17 resulting in hip pain. Had hip fracture which was not initially dx'ed as hip fracture. Was seen in office where CT was ordered and showed valgus impacted Garden 1 femoral neck fracture. Pt was made NWB and booked for surgery with cannulated screws / percutaneous pinning. Past Medical History (reviewed - no changes required): PCP: Rosaura Santacruz followed Rheumatology: [facility], and Dr Xiomara Parry followed by Dr. 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 70 Aplastic anemia due to methotrexate 03/2009 reguiring 5 units of blood History Source: Patient, Medical Record Limitations to Obtaining History: No Limitations - Past Medical History Cardiovascular: Yes: HTN, Hyperlipdemia, Other (Anemia, aplastic anemia) Gastrointestinal: Yes: GERD (H.pylori (+)) ...: No Heme/Onc: Yes: Anemia, Other (Aplastic anemia) Rheumatology: Yes: Rheumatoid Arthritis, Other (scleroderma) Endocrine: Yes: Diabetes Mellitus Additional Past Medical History: Hand cellulitis / osteomyelitis, currently on IV ancef x 6 wks - Past Surgical History Past Surgical History: Yes: Arthrosocopy, Colonoscopy, Upper Endoscopy Additional Past Surgical History: carpal tunnel releases - Advance Directives Advance Directives: Yes: Living Will, Health Care Proxy - Smoking History Smoking history: Never smoked Have you smoked in the past 12 months: No - Alcohol/Substance Use Hx Alcohol Use: No - Social History Usual Living Arrangement: Yes: With Spouse Home Medications - Allergies Allergies/Adverse Reactions: Allergies Allergy/AdvReac Type Severity Reaction Status Date / Time indomethacin sodium Allergy Hives Verified 07/31/17 15:39 [From Indocin] levofloxacin [From Levaquin] Allergy Hives Verified 07/31/17 15:39 - Home Medications Home Medications: Ambulatory Orders Atorvastatin Calcium [Lipitor] 40 mg PO HS 03/22/16 Cyclobenzaprine HCl [Flexeril -] 10 mg PO TID PRN 03/22/16 Dexlansoprazole [Dexilant -] 60 mg PO DAILY 03/22/16 Fenofibrate Nanocrystallized [Tricor] 145 mg PO HS 03/22/16 Mycophenolate Mofetil [Cellcept] 1,500 mg PO BID 03/22/16 Nifedipine [Procardia Xl] 30 mg PO HS 03/22/16 Prazosin HCl 1 mg PO BID 03/22/16 Ramipril 5 mg PO HS 03/22/16 Tramadol HCl 15 mg PO BID 03/22/16 Insulin Sliding Scale [Novolog Vial Sliding Scale -] 1 vial SQ TIDAC units 05/09 predniSONE [Deltasone -] 5 mg PO DAILY tablet 03/24/16 B12/Iodin/Mag/Zinc/Leonila/Xagr222 [Adrenoid Capsule] 1 each PO DAILY 07/31/17 Cholecalciferol (Vitamin D3) [Vitamin D3] 2,000 unit PO DAILY 07/31/17 Citalopram Hydrobromide [Celexa -] 10 mg PO DAILY 07/31/17 Diphenhydramine HCl [Benadryl Capsule -] 25 mg PO HS 07/31/17 Insulin Glargine,Hum.rec.anlog [Lantus] 24 units SQ ACBK 07/31/17 Magnesium Chloride [Slow-Mag] 71.5 mg PO DAILY 07/31/17 Metoclopramide HCl [Reglan] 10 mg PO TID PRN 07/31/17 Oxycodone HCl 5 mg PO Q4H PRN 07/31/17 Home Medications (free text): Ancef IV x 6wks for osteomyelitis Review of Systems - Review of Systems Constitutional: reports: No Symptoms Eyes: reports: No Symptoms HENT: reports: No Symptoms Neck: reports: No Symptoms Cardiovascular: reports: No Symptoms Respiratory: reports: No Symptoms Gastrointestinal: reports: No Symptoms Genitourinary: reports: No Symptoms Breasts: reports: No Symptoms Reported Musculoskeletal: reports: Decreased ROM, Extremity Pain, Joint Pain, Muscle Pain Integumentary: reports: Other (scleroderma) Neurological: reports: No Symptoms Endocrine: reports: No Symptoms Hematology/Lymphatic: reports: No Symptoms Psychiatric: reports: No Symptoms Physical Examination Vital Signs: Vital Signs Temperature 97.5 F L 08/03/17 14:31 Pulse Rate 94 H 08/03/17 14:31 Respiratory Rate 18 08/03/17 14:31 Blood Pressure 109/73 08/03/17 14:31 O2 Sat by Pulse Oximetry (%) 96 08/03/17 14:31 Constitutional: Yes: Well Nourished, No Distress, Calm Eyes: Yes: WNL, Conjunctiva Clear, EOM Intact HENT: Yes: WNL, Atraumatic, Normocephalic Neck: Yes: WNL, Supple Cardiovascular: Yes: WNL, Regular Rate and Rhythm Respiratory: Yes: WNL, Regular Gastrointestinal: Yes: WNL, Soft Renal/: Yes: WNL Breast(s): Yes: Other (deferred) Musculoskeletal: Yes: Joint Stiffness (right hip pain on exam. No shortening. Skin intact.) Edema: No Peripheral Pulses WNL: Yes Integumentary: Yes: WNL Neurological: Yes: WNL, Alert, Oriented ...Motor Strength: WNL Psychiatric: Yes: WNL, Alert, Oriented Labs: Reviewed in [facility] Imaging - Results X-ray: Report Reviewed, Image Reviewed Cat Scan: Report Reviewed, Image Reviewed Problem List - Problems (1) Fracture of femoral neck, right, closed Code(s): S72.001A - FRACTURE OF UNSP PART OF NECK OF RIGHT FEMUR, INIT Qualifiers: Encounter type: initial encounter Qualified Code(s): S72.001A - Fracture of unspecified part of neck of right femur, initial encounter for closed fracture Assessment/Plan 57yo female with right femoral neck fracture for percutaneous pinning.
[2017-08-03] MEDS ORDERED: ceFAZolin SODIUM 1 GM VIAL ONE ×2 (15:32→15:35)
[2017-08-03] MEDS ORDERED: SODIUM CHLORIDE 0.9% P/F 10 ML VIAL IJ ONE (15:32)
[2017-08-03] MEDS ORDERED: ceFAZolin SODIUM 1 GM VIAL IVPB ONE (15:37)
[2017-08-03] MEDS ORDERED: CEFAZOLIN 1 GM/D5W 1 GM/50 ML BAG IVPB ONE (16:15)
[2017-08-03] MEDS ORDERED: ONDANSETRON 4 MG/2 ML VIAL IVPUSH PRN ×2 (16:53→17:13)
[2017-08-03] MEDS ORDERED: LACTATED RINGERS SOLUTION 1,000 ML IV SCH (17:00)
[2017-08-03] MEDS ORDERED: METOCLOPRAMIDE HCL 10 MG TABLET (FP) PO PRN (17:11)
--- NOTE | 2017-08-03 17:11 | OP ---
Operative Note - Note: Operative Date: 08/03/17 Pre-Operative Diagnosis: right valgus impacted femoral neck fracture Operation: cannulated screw fixation of right hip fracture Findings: see dictation Post-Operative Diagnosis: Same as Pre-op Surgeon: Darren Paredes Anesthesia: Spinal Estimated Blood Loss (mls): 50 Operative Report Dictated: Yes
[2017-08-03] MEDS ORDERED: MAG HYDROX/AL HYDROX/SIMETH 30 ML UNIT-DOSE CUP PO PRN (17:13)
[2017-08-03] MEDS ORDERED: MAGNESIUM HYDROX 2400MG/30ML ORAL SUSPENSION 30 ML CUP PO PRN (17:13)
[2017-08-03] MEDS ORDERED: oxyCODONE HCL 5 MG TABLET PO PRN ×2 (17:17→17:18)
[2017-08-03] MEDS ORDERED: ACETAMINOPHEN 1000 MG/100 ML VIAL (NON FORMULARY) IVPB ONE (17:17)
--- NOTE | 2017-08-03 17:20 | PN ---
Progress Note (short form) - Note Progress Note: 57yo female s/p cannulated screw fixation of right femoral neck fracture. PT - WBAT RLE Will need d/c planning to SNF. Call me directly if any questions. [phone] cell Problem List - Problems (1) Fracture of femoral neck, right, closed Code(s): S72.001A - FRACTURE OF UNSP PART OF NECK OF RIGHT FEMUR, INIT Qualifiers: Encounter type: initial encounter Qualified Code(s): S72.001A - Fracture of unspecified part of neck of right femur, initial encounter for closed fracture
[2017-08-03] MEDS ORDERED: ACETAMINOPHEN INJECTION 100 ML IVPB ONE (18:24)
[2017-08-03] MEDS ORDERED: traMADol HCL 50 MG TABLET ONE (18:29)
[2017-08-03] MEDS: traMADol HCL 50 MG TABLET PO SCH (18:30)
[2017-08-03] MEDS: LACTATED RINGERS SOLUTION 1,000 ML IV SCH (18:30)
[2017-08-03] MEDS: PROMETHAZINE HCL 25 MG/1 ML VIAL IVPUSH PRN ×2 (19:20→19:35)
[2017-08-03] MEDS ORDERED: PROMETHAZINE HCL 25 MG/1 ML VIAL ONE (19:22)
--- NOTE | 2017-08-03 19:46 | OP ---
DATE OF OPERATION: 08/03/2017 PREOPERATIVE DIAGNOSIS: Right valgus-impacted femoral neck fracture. POSTOPERATIVE DIAGNOSIS: Right valgus-impacted femoral neck fracture. PROCEDURE: Cannulated screw fixation of right valgus-impacted femoral neck fracture. ATTENDING: Darren Paredes MD EXPERIMENTAL BOX TESTER: None. ANESTHESIA: Spinal plus sedation. ESTIMATED BLOOD LOSS: 50 mL COMPLICATIONS: None. DISPOSITION: The patient was transferred to the PACU in stable condition. IMPLANTS USED: Wilbraham Asnis 6.0-mm cannulated screw, size 80 mm, 80 mm, 85 mm. INDICATIONS: This is a 57-year-old female who fell on July 25 and sustained a right valgus-impacted (Garden type I) femoral neck fracture. She was initially seen in urgent care and then sent to the office for followup. In the office, she continued to complain of hip pain, and though the x-rays were not initially read as a femoral neck fracture, a followup CT scan demonstrated a nondisplaced, valgus-impacted femoral neck fracture. At that point, the patient was made nonweightbearing and indicated for cannulated screw fixation of the right femoral neck fracture. The risks, benefits, and alternatives were explained to the patient and her , and both agreed to proceed with the procedure. On the day of surgery, the patient was taken to the operating room and placed under spinal anesthesia. Intravenous antibiotics were given for infection prophylaxis. The patient was positioned supine on the fracture table, and the right lower extremity was secured to the traction boot. The contralateral leg was placed in the semi-lithotomy position. A fluoroscope was used to visualize the fracture in both the AP and lateral projections. It was found to be nondisplaced and valgus impacted; so, manipulation was not needed to obtain reduction. The right hip was then prepped with chlorhexidine, and a sterile drape was applied in the usual fashion. An approximately 4-cm incision was then made centered over the lesser trochanter of the hip. The gluteal fascia was incised, and blunt dissection performed. The lateral cortex of the femur was palpable with a finger. Next, a guide pin was placed up into the center of the femoral head inferiorly. The fluoroscope was used to visualize this in both the AP and lateral projections to assure that it was centered within the femoral head and that it reached subchondral bone without perforating the periphery of the head. Next, the wire targeting guide was then used to place 2 additional pins in an inverted delta configuration. Three consecutive screws were then placed under fluoroscopic control into the femoral head with excellent fixation. A depth gauge was used to measure the wires initially, and then, the appropriate screw size was chosen and placed over the wire using a combination of power and manual screwdriver. Once this was performed, all guidewires were removed. The fixation was found to be solid, and wound closure was begun. The wound was then thoroughly irrigated with normal saline. Number 1 Vicryl simple interrupted sutures were used for the IT band and deep fascia, 2-0 Vicryl was used for the subcutaneous tissues, and the skin was closed with a 3-0 V-Loc 90 monofilament suture in a running subcuticular fashion. Dermabond skin adhesive was applied over the suture for additional closure strength and watertight seal. A sterile Aquacel dressing was then applied, and the patient was awakened and taken to the PACU in stable condition. Heather [id number]
[2017-08-03] MEDS ORDERED: RAMIPRIL 5 MG CAPSULE (FP) PO SCH (22:00)
[2017-08-03] MEDS ORDERED: HYDROmorphone HCL CARPU-JECT 2 MG/1 ML DISP.SYRIN IVPB PRN (22:14)
[2017-08-03] MEDS: morphine SULFATE 4 MG/ML VIAL IVPUSH PRN (22:49)
[2017-08-03] MEDS: SENNOSIDES/DOCUSATE COMBO (SENNA PLUS) TABLET (UD) PO SCH (22:55)
[2017-08-03] MEDS: NIFEdipine E.R. 30 MG TABLET (FP) PO SCH (22:56)
[2017-08-03] MEDS: diphenhydrAMINE HCL 25 MG CAPSULE (FP) PO SCH (22:56)
[2017-08-03] MEDS: ATORVASTATIN CA 40 MG TABLET (FP) PO SCH (22:56)
[2017-08-03] MEDS: ASCORBIC ACID 500 MG TABLET (FP) PO SCH (22:56)
[2017-08-03] MEDS ORDERED: CEFAZOLIN 1 GM/D5W 1 GM/50 ML BAG IVPB SCH (23:30)
[2017-08-03] MEDS: APIXABAN 2.5 MG TABLET PO SCH (23:33)
[2017-08-03] MEDS: PRAZOSIN HCL 1 MG CAPSULE PO SCH (23:33)
[2017-08-03] MEDS: MYCOPHENOLATE MOFETIL 500 MG TABLET PO SCH (23:33)
[2017-08-03] MEDS: INSULIN SLIDING SCALE (NOVOLOG) 1 VIAL SQ SCH (23:34)
[2017-08-03] MEDS: oxyCODONE HCL 10 MG SUSTAINED ACTING TABLET PO SCH (23:34)
[2017-08-04] MEDS: traMADol HCL 50 MG TABLET PO SCH ×4 (00:30→17:46)
[2017-08-04] MEDS: RAMIPRIL 5 MG CAPSULE (FP) PO SCH ×2 (01:30→21:02)
[2017-08-04] MEDS: LACTATED RINGERS SOLUTION 1,000 ML IV SCH (01:31)
[2017-08-04] MEDS: morphine SULFATE 4 MG/ML VIAL IVPUSH PRN ×6 (03:12→21:02)
[2017-08-04] MEDS: INSULIN SLIDING SCALE (NOVOLOG) 1 VIAL SQ SCH ×5 (06:34→21:10)
[2017-08-04] MEDS: INSULIN (LEVEMIR) 100 UNITS/ML UNITS SQ SCH (06:34)
[2017-08-04] MEDS ORDERED: INSULIN SLIDING SCALE (NOVOLOG) 1 VIAL SQ SCH (07:00)
[2017-08-04 07:46] LABS: HEMATOCRIT 27.1 % (32.4-45.2); HEMOGLOBIN 9.1 GM/dL (10.7-15.3); MCH 28.8 pg (25.7-33.7); MCHC 33.5 g/dl (32.0-36.0); MEAN CELL VOLUME 85.9 fl (80-96); PLATELET COUNT 427 K/MM3 (134-434); RBC 3.15 M/mm3 (3.60-5.2); RDW 14.3 % (11.6-15.6); WHITE BLOOD COUNT 11.9 K/mm3 (4.0-10.0)
[2017-08-04 08:14] LABS: ANION GAP 8 (8-16); BLOOD UREA NITROGEN 12 mg/dL (7-18); CALCIUM 8.9 mg/dL (8.5-10.1); CHLORIDE 100 mmol/L (98-107); CO2 28 mmol/L (21-32); CREATININE 0.4 mg/dL (0.55-1.02); GLUCOSE,RANDOM 101 mg/dL (74-106); POTASSIUM 4.1 mmol/L (3.5-5.1); SODIUM 136 mmol/L (136-145)
[2017-08-04] MEDS: FERROUS SO4 325 MG TABLET (FP) PO SCH ×2 (08:21→17:46)
[2017-08-04] MEDS ORDERED: PT OWN MED DRAWER 7, Y5N ONE ×3 (09:16→20:55)
[2017-08-04] MEDS: CEFAZOLIN 1 GM in DEXTROSE 5%-WATER - 50 ML IVPB SCH ×2 (09:18→17:47)
[2017-08-04] MEDS: CHOLECALCIFEROL (VITAMIN D3) 1,000 UNIT TABLET (FP) PO SCH (09:18)
[2017-08-04] MEDS: ASCORBIC ACID 500 MG TABLET (FP) PO SCH ×2 (09:18→21:00)
[2017-08-04] MEDS: PANTOPRAZOLE 40 MG TABLET (FP) PO SCH (09:19)
[2017-08-04] MEDS: predniSONE 5 MG TABLET (UD) PO SCH (09:19)
[2017-08-04] MEDS: MULTIVITAMINS (DAILY MVI) TABLET (FP) PO SCH (09:19)
[2017-08-04] MEDS: oxyCODONE HCL 10 MG SUSTAINED ACTING TABLET PO SCH ×2 (09:19→21:01)
[2017-08-04] MEDS: SENNOSIDES/DOCUSATE COMBO (SENNA PLUS) TABLET (UD) PO SCH ×2 (09:19→21:00)
[2017-08-04] MEDS: MYCOPHENOLATE MOFETIL 500 MG TABLET PO SCH ×2 (09:20→21:02)
[2017-08-04] MEDS: CITALOPRAM HYDROBROMIDE 10 MG TABLET (FP) PO SCH (09:20)
[2017-08-04] MEDS: PRAZOSIN HCL 1 MG CAPSULE PO SCH ×2 (09:21→21:02)
[2017-08-04] MEDS: MAGNESIUM CL 64 MG TABLET.SA PO SCH (09:21)
[2017-08-04] MEDS: APIXABAN 2.5 MG TABLET PO SCH ×2 (09:21→21:02)
[2017-08-04] MEDS ORDERED: [UNRECOGNIZED DRUG - OTHER] PO SCH (10:00)
[2017-08-04] MEDS ORDERED: HYDROmorphone HCL CARPU-JECT 1 MG/1 ML DISP.SYRIN IVPB PRN (10:03)
--- NOTE | 2017-08-04 10:07 | PN ---
Progress Note (short form) - Note Progress Note: Post op day#1.Right hip canulated screw under spinal anesthesia uneventful.Patient stable and c/o some pain for which Dilaudid is ordered.No any anesthesia related problem.Patient Dc from the anesthesia care.
[2017-08-04] MEDS ORDERED: DEXTROSE 5%-WATER - 50 ML IVPB ONE (17:39)
[2017-08-04] MEDS ORDERED: ceFAZolin SODIUM 1 GM VIAL ONE (17:39)
[2017-08-04] MEDS: FENOFIBRIC ACID 135 MG CAP PO SCH (17:46)
[2017-08-04] MEDS: diphenhydrAMINE HCL 25 MG CAPSULE (FP) PO SCH (21:00)
[2017-08-04] MEDS: NIFEdipine E.R. 30 MG TABLET (FP) PO SCH (21:00)
[2017-08-04] MEDS: ATORVASTATIN CA 40 MG TABLET (FP) PO SCH (21:00)
--- NOTE | 2017-08-04 23:57 | PN ---
Progress Note (short form) - Note Progress Note: 57yo female s/p cannulated screw fixation of right femoral neck fracture. Pt seen and examined. Comfortable. AVSS Selected Entries 08/04/17 18:00 Temperature 98.2 F Pulse Rate 75 Respiratory 20 Rate Blood Pressure 115/61 Laboratory Tests 08/04/17 08/04/17 06:28 06:28 WBC 11.9 H D Hgb 9.1 L D Hct 27.1 L D Plt Count 427 Sodium 136 Potassium 4.1 Chloride 100 Carbon Dioxide 28 Anion Gap 8 BUN 12 Creatinine 0.4 L Random Glucose 101 Calcium 8.9 Gen: NAD RLE: c/d/i, NVID A/P 57yo female s/p cannulated screw fixation of right femoral neck fracture PT/OOB - WBAT RLE d/c planning to SNF/rehab. Call me directly if any questions. [phone] cell Problem List - Problems (1) Fracture of femoral neck, right, closed Code(s): S72.001A - FRACTURE OF UNSP PART OF NECK OF RIGHT FEMUR, INIT Qualifiers: Encounter type: initial encounter Qualified Code(s): S72.001A - Fracture of unspecified part of neck of right femur, initial encounter for closed fracture
[2017-08-05] MEDS: traMADol HCL 50 MG TABLET PO SCH ×4 (00:22→17:26)
[2017-08-05] MEDS: morphine SULFATE 4 MG/ML VIAL IVPUSH PRN ×4 (04:26→17:27)
[2017-08-05] MEDS: INSULIN (LEVEMIR) 100 UNITS/ML UNITS SQ SCH (06:03)
[2017-08-05] MEDS: INSULIN SLIDING SCALE (NOVOLOG) 1 VIAL SQ SCH ×4 (06:04→22:29)
[2017-08-05 07:36] LABS: HEMATOCRIT 26.1 % (32.4-45.2); HEMOGLOBIN 8.9 GM/dL (10.7-15.3); MCH 29.5 pg (25.7-33.7); MCHC 34.2 g/dl (32.0-36.0); MEAN CELL VOLUME 86.2 fl (80-96); MEAN PLT VOLUME 7.6 fl (7.5-11.1); PLATELET COUNT 401 K/MM3 (134-434); RBC 3.03 M/mm3 (3.60-5.2); RDW 14.3 % (11.6-15.6)
[2017-08-05 08:34] LABS: CHLORIDE 98 mmol/L (98-107); POTASSIUM 4.4 mmol/L (3.5-5.1); SODIUM 134 mmol/L (136-145)
[2017-08-05 08:51] LABS: ANION GAP 9 (8-16); BLOOD UREA NITROGEN 12 mg/dL (7-18); CALCIUM 9.1 mg/dL (8.5-10.1); CO2 27 mmol/L (21-32); CREATININE 0.4 mg/dL (0.55-1.02); GLUCOSE,RANDOM 136 mg/dL (74-106)
[2017-08-05] MEDS ORDERED: PT OWN MED DRAWER 7, Y5N ONE ×2 (09:29→21:18)
[2017-08-05] MEDS: FERROUS SO4 325 MG TABLET (FP) PO SCH ×2 (09:35→17:26)
[2017-08-05] MEDS: oxyCODONE HCL 10 MG SUSTAINED ACTING TABLET PO SCH ×2 (09:35→22:28)
[2017-08-05] MEDS: PANTOPRAZOLE 40 MG TABLET (FP) PO SCH (09:36)
[2017-08-05] MEDS: CHOLECALCIFEROL (VITAMIN D3) 1,000 UNIT TABLET (FP) PO SCH (09:36)
[2017-08-05] MEDS: MULTIVITAMINS (DAILY MVI) TABLET (FP) PO SCH (09:36)
[2017-08-05] MEDS: SENNOSIDES/DOCUSATE COMBO (SENNA PLUS) TABLET (UD) PO SCH ×2 (09:36→22:29)
[2017-08-05] MEDS: ASCORBIC ACID 500 MG TABLET (FP) PO SCH ×2 (09:36→22:28)
[2017-08-05] MEDS: predniSONE 5 MG TABLET (UD) PO SCH (09:36)
[2017-08-05] MEDS: PRAZOSIN HCL 1 MG CAPSULE PO SCH ×2 (09:38→22:29)
[2017-08-05] MEDS: APIXABAN 2.5 MG TABLET PO SCH ×2 (09:38→22:29)
[2017-08-05] MEDS: MAGNESIUM CL 64 MG TABLET.SA PO SCH (09:39)
[2017-08-05] MEDS: MYCOPHENOLATE MOFETIL 500 MG TABLET PO SCH ×2 (09:40→22:27)
[2017-08-05] MEDS: CITALOPRAM HYDROBROMIDE 10 MG TABLET (FP) PO SCH (09:41)
[2017-08-05] MEDS ORDERED: INSULIN (NOVOLOG) ASPART 100 UNITS/ML 10ML VIAL ONE (12:02)
[2017-08-05] MEDS: oxyCODONE HCL 5 MG TABLET PO SCH (20:40)
--- NOTE | 2017-08-05 20:58 | PN ---
Progress Note (short form) - Note Progress Note: 57yo female s/p cannulated screw fixation of right femoral neck fracture. Pt seen and examined. C/o severe pain. AVSS Selected Entries 08/05/17 18:00 Temperature 98.3 F Pulse Rate 90 Respiratory 20 Rate Blood Pressure 114/60 Laboratory Tests 08/05/17 08/05/17 06:30 06:30 WBC 10.0 Hgb 8.9 L Hct 26.1 L Plt Count 401 Sodium 134 L Potassium 4.4 Chloride 98 Carbon Dioxide 27 Anion Gap 9 BUN 12 Creatinine 0.4 L Random Glucose 136 H Calcium 9.1 Gen: NAD RLE: c/d/i, NVID. Severe groin/thigh pain with any motion. A/P 57yo POD#2 female s/p cannulated screw fixation of right femoral neck fracture Severe pain - should be feeling better at this point. Hold d/c to SNF until pain better controlled. NWB RLE until pain improves. Xray of R hip ordered to check that hardware has not shifted. Hold physical therapy for now. Call me directly if any questions. [phone] cell Problem List - Problems (1) Fracture of femoral neck, right, closed Code(s): S72.001A - FRACTURE OF UNSP PART OF NECK OF RIGHT FEMUR, INIT Qualifiers: Encounter type: initial encounter Qualified Code(s): S72.001A - Fracture of unspecified part of neck of right femur, initial encounter for closed fracture
[2017-08-05] MEDS: ATORVASTATIN CA 40 MG TABLET (FP) PO SCH (22:28)
[2017-08-05] MEDS: RAMIPRIL 5 MG CAPSULE (FP) PO SCH (22:28)
[2017-08-05] MEDS: NIFEdipine E.R. 30 MG TABLET (FP) PO SCH (22:29)
[2017-08-05] MEDS: diphenhydrAMINE HCL 25 MG CAPSULE (FP) PO SCH (22:29)
[2017-08-06] MEDS: traMADol HCL 50 MG TABLET PO SCH ×5 (00:01→19:26)
[2017-08-06] MEDS: oxyCODONE HCL 5 MG TABLET PO SCH ×5 (00:01→16:54)
[2017-08-06] MEDS: INSULIN SLIDING SCALE (NOVOLOG) 1 VIAL SQ SCH ×4 (06:09→22:00)
[2017-08-06] MEDS: INSULIN (LEVEMIR) 100 UNITS/ML UNITS SQ SCH (06:36)
[2017-08-06 07:33] LABS: HEMOGLOBIN 8.2 GM/dL (10.7-15.3); MCH 29.2 pg (25.7-33.7); MEAN CELL VOLUME 85.9 fl (80-96); MEAN PLT VOLUME 7.9 fl (7.5-11.1); PLATELET COUNT 390 K/MM3 (134-434); RDW 14.3 % (11.6-15.6); WHITE BLOOD COUNT 9.1 K/mm3 (4.0-10.0)
[2017-08-06 07:55] LABS: CHLORIDE 97 mmol/L (98-107); POTASSIUM 4.5 mmol/L (3.5-5.1); SODIUM 133 mmol/L (136-145)
[2017-08-06 08:08] LABS: ANION GAP 9 (8-16); BLOOD UREA NITROGEN 18 mg/dL (7-18); CALCIUM 9.1 mg/dL (8.5-10.1); CO2 27 mmol/L (21-32); CREATININE 0.5 mg/dL (0.55-1.02); GLUCOSE,RANDOM 140 mg/dL (74-106)
[2017-08-06] MEDS ORDERED: INSULIN (NOVOLOG) ASPART 100 UNITS/ML 10ML VIAL ONE (10:07)
[2017-08-06] MEDS ORDERED: PT OWN MED DRAWER 7, Y5N ONE ×4 (10:07→23:27)
[2017-08-06] MEDS: PANTOPRAZOLE 40 MG TABLET (FP) PO SCH (10:15)
[2017-08-06] MEDS: predniSONE 5 MG TABLET (UD) PO SCH (10:15)
[2017-08-06] MEDS: FERROUS SO4 325 MG TABLET (FP) PO SCH ×2 (10:15→16:53)
[2017-08-06] MEDS: MULTIVITAMINS (DAILY MVI) TABLET (FP) PO SCH (10:15)
[2017-08-06] MEDS: MAGNESIUM CL 64 MG TABLET.SA PO SCH (10:16)
[2017-08-06] MEDS: ASCORBIC ACID 500 MG TABLET (FP) PO SCH ×2 (10:16→21:38)
[2017-08-06] MEDS: CHOLECALCIFEROL (VITAMIN D3) 1,000 UNIT TABLET (FP) PO SCH (10:16)
[2017-08-06] MEDS: SENNOSIDES/DOCUSATE COMBO (SENNA PLUS) TABLET (UD) PO SCH ×2 (10:16→21:40)
[2017-08-06] MEDS: APIXABAN 2.5 MG TABLET PO SCH ×2 (10:17→21:39)
[2017-08-06] MEDS: PRAZOSIN HCL 1 MG CAPSULE PO SCH ×2 (10:17→21:39)
[2017-08-06] MEDS: CITALOPRAM HYDROBROMIDE 10 MG TABLET (FP) PO SCH (10:17)
[2017-08-06] MEDS: oxyCODONE HCL 10 MG SUSTAINED ACTING TABLET PO SCH ×2 (10:18→21:38)
[2017-08-06] MEDS: MYCOPHENOLATE MOFETIL 500 MG TABLET PO SCH ×2 (10:18→21:39)
[2017-08-06] MEDS: morphine SULFATE 4 MG/ML VIAL IVPUSH PRN ×2 (15:11→22:00)
[2017-08-06] MEDS: FENOFIBRIC ACID 135 MG CAP PO SCH (16:54)
--- NOTE | 2017-08-06 20:10 | PN ---
Progress Note (short form) - Note Progress Note: 57yo female s/p cannulated screw fixation of right femoral neck fracture. Pt seen and examined. C/o severe pain. AVSS Selected Entries 08/06/17 14:00 Temperature 97.9 F Pulse Rate 91 H Respiratory 20 Rate Blood Pressure 97/55 Laboratory Tests 08/06/17 08/06/17 08/06/17 06:30 06:30 06:30 WBC 9.1 Hgb 8.2 L Hct 24.0 L Sodium 133 L Potassium 4.5 Chloride 97 L Carbon Dioxide 27 Anion Gap 9 BUN 18 Creatinine 0.5 L Random Glucose 140 H Hemoglobin A1c % 8.5 H Calcium 9.1 Gen: NAD RLE: c/d/i, NVID. Severe groin/thigh pain with any motion. Xray right hip - hardware in place and fracture reduced. A/P 57yo POD#3 female s/p cannulated screw fixation of right femoral neck fracture TTWB RLE Hold physical therapy for now. D/C to rehab tomorrow if bed available. 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 She should leave the hospital before she gets pneumonia, c-diff, UTI, etc and then is hospitalized indefinitely. With all her comorbidities she is not likely to clear an infection easily and this could result in . I discussed this with the patient and her by phone. Call me directly if any questions. [phone] cell Problem List - Problems (1) Fracture of femoral neck, right, closed Code(s): S72.001A - FRACTURE OF UNSP PART OF NECK OF RIGHT FEMUR, INIT Qualifiers: Encounter type: initial encounter Qualified Code(s): S72.001A - Fracture of unspecified part of neck of right femur, initial encounter for closed fracture
--- NOTE | 2017-08-06 20:40 | DS ---
Physical Examination Vital Signs: Vital Signs Temperature 97.9 F 08/06/17 14:00 Pulse Rate 91 H 08/06/17 14:00 Respiratory Rate 20 08/06/17 14:00 Blood Pressure 97/55 08/06/17 14:00 O2 Sat by Pulse Oximetry (%) 97 08/06/17 08:00 Labs: CBC, BMP 08/06/17 06:30 08/06/17 06:30 Discharge Summary Reason For Visit: RIGHT FEMORAL NECK FRACTURE Current Active Problems Fracture of femoral neck, right, closed (Acute) Procedures: Principal: cannulated screw fixation of right femoral neck fracture Hospital Course: Admitted for elective surgery. Procedure performed without complications. Pt received postoperative antibiotic prophylaxis and DVT ppx. Was only able to do very limited PT because of pain. Medically stable for discharge to SNF/rehab with outpatient followup. Condition: Stable - Instructions Diet, Activity, Other Instructions: Dr Paredes Instructions Keep the Aquacel dressing on until removed by Dr. Paredes in 10-14 days - it is antibacterial and waterproof and you can shower with it on. Call the office for a follow-up appointment with Dr. Paredes in 10-14 days. [phone] Take ELIQUIS 2.5mg twice daily for 5 weeks to prevent blood clots in your legs. Activity: TTWB RLE Pressure ulcer precautions. Always use a walker for balance and to prevent falls. Disposition: LONGTERM FACILITY - Home Medications Comprehensive Discharge Medication List: Ambulatory Orders Atorvastatin Calcium [Lipitor] 40 mg PO HS 03/22/16 Dexlansoprazole [Dexilant -] 60 mg PO DAILY 03/22/16 Fenofibrate Nanocrystallized [Tricor] 145 mg PO HS 03/22/16 Mycophenolate Mofetil [Cellcept] 1,500 mg PO BID 03/22/16 Nifedipine [Procardia Xl] 30 mg PO HS 03/22/16 Prazosin HCl 1 mg PO BID 03/22/16 Ramipril 5 mg PO HS 03/22/16 Insulin Sliding Scale [Novolog Vial Sliding Scale -] 1 vial SQ TIDAC units 05/09 predniSONE [Deltasone -] 5 mg PO DAILY tablet 03/24/16 B12/Iodin/Mag/Zinc/Leonila/[id number] [Adrenoid Capsule] 1 each PO DAILY 07/31/17 Cholecalciferol (Vitamin D3) [Vitamin D3] 2,000 unit PO DAILY 07/31/17 Citalopram Hydrobromide [Celexa -] 10 mg PO DAILY 07/31/17 Diphenhydramine HCl [Benadryl Capsule -] 25 mg PO HS 07/31/17 Insulin Glargine,Hum.rec.anlog [Lantus] 24 units SQ ACBK 07/31/17 Magnesium Chloride [Slow-Mag] 71.5 mg PO DAILY 07/31/17 Metoclopramide HCl [Reglan] 10 mg PO TID PRN 07/31/17 Apixaban [Eliquis -] 2.5 mg PO BID tablet 08/05/17 Ascorbic Acid [Vitamin C -] 500 mg PO BID tablet 08/05/17 Cefazolin [Ancef -] 1 gm IVPB Q8H vial 08/05/17 Ferrous Sulfate [Feosol] 325 mg PO BIDWM ud 08/05/17 Insulin Sliding Scale [Novolog Vial Sliding Scale -] 1 vial SQ ACHS units 08/05 Mag Hydrox/Al Hydrox/Simeth [Mylanta Oral Suspension -] 30 ml PO Q4H PRN cup Magnesium Hydrox 2400MG/30Ml [Milk of Magnesia -] 30 ml PO PRN PRN cup Multivitamins [Multivit ([facility] Formul[facility])] 1 tab PO DAILY tab 08/05/17 Ondansetron Injection [Zofran Injection] 4 mg IVPUSH Q6H PRN vial 08/05/17 Sennosides/Docusate Sodium [Pericolace -] 1 tablet PO BID tablet 08/05/17 oxyCODONE HCL [Roxicodone -] 5 mg PO Q3H PRN #60 tablet MDD 8 08/05/17 oxyCODONE HCL [Roxicodone -] 10 mg PO Q3H PRN #60 tablet MDD 8 08/05/17 oxyCODONE SR [Oxycontin] 10 mg PO BID #60 tab.er.12h MDD 2 08/05/17 traMADol HCL [Ultram -] 50 mg PO Q6H #60 tablet MDD 4 08/05/17 oxyCODONE SR [Oxycontin] 20 mg PO BID #60 tab.er.12h MDD 2 08/06/17
[2017-08-06] MEDS: ATORVASTATIN CA 40 MG TABLET (FP) PO SCH (21:37)
[2017-08-06] MEDS: NIFEdipine E.R. 30 MG TABLET (FP) PO SCH (21:37)
[2017-08-06] MEDS: diphenhydrAMINE HCL 25 MG CAPSULE (FP) PO SCH (21:38)
[2017-08-06] MEDS: RAMIPRIL 5 MG CAPSULE (FP) PO SCH (21:39)
[2017-08-07] MEDS: INSULIN SLIDING SCALE (NOVOLOG) 1 VIAL SQ SCH ×2 (06:19→10:44)
[2017-08-07] MEDS: INSULIN (LEVEMIR) 100 UNITS/ML UNITS SQ SCH (06:19)
[2017-08-07 07:24] LABS: HEMATOCRIT 27.4 % (32.4-45.2); HEMOGLOBIN 9.2 GM/dL (10.7-15.3); MCH 28.8 pg (25.7-33.7); MCHC 33.8 g/dl (32.0-36.0); MEAN CELL VOLUME 85.3 fl (80-96); MEAN PLT VOLUME 8.2 fl (7.5-11.1); PLATELET COUNT 511 K/MM3 (134-434); RBC 3.21 M/mm3 (3.60-5.2); RDW 14.4 % (11.6-15.6); WHITE BLOOD COUNT 9.9 K/mm3 (4.0-10.0)
[2017-08-07] MEDS: morphine SULFATE 4 MG/ML VIAL IVPUSH PRN ×2 (07:35→14:10)
[2017-08-07 08:07] LABS: ANION GAP 8 (8-16); BLOOD UREA NITROGEN 22 mg/dL (7-18); CALCIUM 9.5 mg/dL (8.5-10.1); CHLORIDE 95 mmol/L (98-107); CO2 27 mmol/L (21-32); CREATININE 0.5 mg/dL (0.55-1.02); GLUCOSE,RANDOM 138 mg/dL (74-106); POTASSIUM 4.7 mmol/L (3.5-5.1); SODIUM 130 mmol/L (136-145)
--- NOTE | 2017-08-07 08:48 | PN ---
Progress Note (short form) - Note Progress Note: PT ordered - TTWB RLE Ancef 1g q8h standing dose ordered. Pt was already on 6wks of IV ancef through PICC line for osteomyelitis. D/C to SNF today. Problem List - Problems (1) Fracture of femoral neck, right, closed Code(s): S72.001A - FRACTURE OF UNSP PART OF NECK OF RIGHT FEMUR, INIT Qualifiers: Encounter type: initial encounter Qualified Code(s): S72.001A - Fracture of unspecified part of neck of right femur, initial encounter for closed fracture
[2017-08-07] MEDS ORDERED: PT OWN MED DRAWER 7, Y5N ONE (09:35)
[2017-08-07] MEDS ORDERED: DEXTROSE 5%-WATER - 50 ML IVPB ONE (09:35)
[2017-08-07] MEDS ORDERED: ceFAZolin SODIUM 1 GM VIAL ONE (09:35)
[2017-08-07] MEDS: APIXABAN 2.5 MG TABLET PO SCH (09:47)
[2017-08-07] MEDS: CITALOPRAM HYDROBROMIDE 10 MG TABLET (FP) PO SCH (09:47)
[2017-08-07] MEDS: MAGNESIUM CL 64 MG TABLET.SA PO SCH (09:47)
[2017-08-07] MEDS: MULTIVITAMINS (DAILY MVI) TABLET (FP) PO SCH (09:47)
[2017-08-07] MEDS: SENNOSIDES/DOCUSATE COMBO (SENNA PLUS) TABLET (UD) PO SCH (09:47)
[2017-08-07] MEDS: PANTOPRAZOLE 40 MG TABLET (FP) PO SCH (09:48)
[2017-08-07] MEDS: predniSONE 5 MG TABLET (UD) PO SCH (09:48)
[2017-08-07] MEDS: CHOLECALCIFEROL (VITAMIN D3) 1,000 UNIT TABLET (FP) PO SCH (09:49)
[2017-08-07] MEDS: ASCORBIC ACID 500 MG TABLET (FP) PO SCH (09:49)
[2017-08-07] MEDS: MYCOPHENOLATE MOFETIL 500 MG TABLET PO SCH (09:49)
[2017-08-07] MEDS: PRAZOSIN HCL 1 MG CAPSULE PO SCH (09:49)
[2017-08-07] MEDS: FERROUS SO4 325 MG TABLET (FP) PO SCH (09:50)
[2017-08-07] MEDS: oxyCODONE HCL 10 MG SUSTAINED ACTING TABLET PO SCH (09:50)
[2017-08-07] MEDS ORDERED: CEFAZOLIN 1 GM/D5W 1 GM/50 ML BAG IVPB SCH (10:00)
[2017-08-07] MEDS ORDERED: CEFAZOLIN 1 GM in DEXTROSE 5%-WATER - 50 ML IVPB SCH (10:00)
[2017-08-07 14:40] VITALS: BP 108/63; PULSE 90; TEMP 97.7
== END 2017-08-07 17:28 | DRG 481 ==
LOC: JSAMEDAYSX 13:40 → EDSTATUS 16:00 → J6S 20:28
PROVIDERS: ADMIT Student in an Organized Health Care Education/Training Program; ATTEND Student in an Organized Health Care Education/Training Program
PROC: 0QH604Z Insertion of Internal Fixation Device into Right Upper Femur, Open Approach (ICD-10-PCS; principal; 2017-08-03 16:00)
DX: S72.091A Other fracture of head and neck of right femur, initial encounter for closed fracture (principal); H05.02 Osteomyelitis of orbit; E46 Unspecified protein-calorie malnutrition; W18.39XA Other fall on same level, initial encounter; Y93.89 Activity, other specified; Y92.89 Other specified places as the place of occurrence of the external cause; Y99.8 Other external cause status; E11.65 Type 2 diabetes mellitus with hyperglycemia; M34.9 Systemic sclerosis, unspecified; I10 Essential (primary) hypertension; M06.9 Rheumatoid arthritis, unspecified; E78.5 Hyperlipidemia, unspecified; Z79.4 Long term (current) use of insulin
CPT/HCPCS: 36415; 73502-TC-RT; 76000-TC-FY; 80048; 82962; 83036; 85027; 86850; 86900; 86901; 94010; 94760; 97116-GP; 97161-GP; J0131; J7517

== ENCOUNTER 2021-03-14 18:41 | Inpatient (IN) | payer OTHER ==
[2021-03-14 18:59] VITALS: BMI 19.5
[2021-03-14 21:05] LABS: BASO % 0.6 % (0-2.0); EOS % 0.7 % (0-4.5); HEMATOCRIT 28.8 % (32.4-45.2); HEMOGLOBIN 9.5 GM/dL (10.7-15.3); LYMPH % 8.1 % (8-40); MCH 28.5 pg (25.7-33.7); MCHC 33.1 g/dl (32.0-36.0); MEAN CELL VOLUME 86.1 fl (80-96); MEAN PLT VOLUME 8.6 fl (7.5-11.1); MONO % 5.3 % (3.8-10.2); NEUT % 85.3 % (42.8-82.8); PLATELET COUNT 468 10^3/uL (134-434); RBC 3.34 M/mm3 (3.60-5.2); RDW 16.8 % (11.6-15.6); WHITE BLOOD COUNT 10.1 K/mm3 (4.0-10.0)
[2021-03-14] MEDS ORDERED: CEFTRIAXONE 1,000 MG in DEXTROSE 5%-WATER - 50 ML IVPB ONE (21:05)
[2021-03-14] MEDS ORDERED: AZITHROMYCIN 500 MG TABLET PO ONE (21:05)
[2021-03-14 21:12] LABS: INR 1.21 (0.83-1.09); PROTHROMBIN TIME (PATIENT) 13.6 SEC (9.7-13.0)
[2021-03-14 21:14] LABS: ACTIVATED PTT 30.2 SECONDS (25.2-36.5)
[2021-03-14] MEDS ORDERED: CEFTRIAXONE 1 GM/50 ML BAG ONE (21:34)
[2021-03-14] MEDS ORDERED: AZITHROMYCIN 250 MG TABLET ONE (21:34)
[2021-03-14 21:39] LABS: ALBUMIN 2.9 g/dl (3.4-5.0); BLOOD UREA NITROGEN 18.6 mg/dL (7-18); CALCIUM 8.4 mg/dL (8.5-10.1)
[2021-03-14 21:42] LABS: CREATININE 0.5 mg/dL (0.55-1.3)
[2021-03-14 21:44] LABS: BILIRUBIN,TOTAL 0.5 mg/dL (0.2-1)
[2021-03-15] MEDS ORDERED: CEFTRIAXONE 1,000 MG in DEXTROSE 5%-WATER - 50 ML IVPB ONE (00:29)
[2021-03-15] MEDS ORDERED: CEFTRIAXONE 1 GM/50 ML BAG ONE ×2 (00:44→08:25)
[2021-03-15] MEDS ORDERED: ACETAMINOPHEN 1000 MG/100 ML BAG IVPB ONE (01:04)
[2021-03-15] MEDS ORDERED: ACETAMINOPHEN INJECTION 100 ML IVPB ONE (02:16)
[2021-03-15 06:38] LABS: VENOUS BASE EXCESS -0.1 mmol/L (-2-2); VENOUS O2 SATURATION 96.1 % (70-80); VENOUS PCO2 41.1 mmHg (38-52); VENOUS PH 7.398 (7.310-7.410)
[2021-03-15 06:41] LABS: CALCIUM 8.4 mg/dL (8.5-10.1); MAGNESIUM 1.3 mg/dL (1.8-2.4)
[2021-03-15 06:42] LABS: BLOOD UREA NITROGEN 10.9 mg/dL (7-18)
[2021-03-15 06:44] LABS: BASO % 0.9 % (0-2.0); EOS % 2.8 % (0-4.5); HEMATOCRIT 31.8 % (32.4-45.2); HEMOGLOBIN 10.5 GM/dL (10.7-15.3); LYMPH % 18.2 % (8-40); MCH 28.6 pg (25.7-33.7); MCHC 32.9 g/dl (32.0-36.0); MEAN CELL VOLUME 86.8 fl (80-96); MEAN PLT VOLUME 9.1 fl (7.5-11.1); MONO % 6.7 % (3.8-10.2); NEUT % 71.4 % (42.8-82.8); PLATELET COUNT 484 10^3/uL (134-434); RBC 3.67 M/mm3 (3.60-5.2); RDW 16.8 % (11.6-15.6); WHITE BLOOD COUNT 11.2 K/mm3 (4.0-10.0)
[2021-03-15 06:45] LABS: CREATININE 0.4 mg/dL (0.55-1.3); PHOSPHOROUS 3.1 mg/dL (2.5-4.9)
[2021-03-15] MEDS: INSULIN SLIDING SCALE (NOVOLOG) 1 VIAL SQ SCH ×4 (07:16→22:38)
[2021-03-15] MEDS ORDERED: CITALOPRAM HYDROBROMIDE 10 MG TABLET ONE (08:24)
[2021-03-15] MEDS ORDERED: AZITHROMYCIN 250 MG TABLET ONE (08:24)
[2021-03-15] MEDS ORDERED: ENOXAPARIN NA (PORCINE) 40 MG/0.4 ML DISP.SYRIN SQ ONE (08:24)
[2021-03-15] MEDS: AZITHROMYCIN 250 MG TABLET PO SCH (09:08)
[2021-03-15] MEDS: CITALOPRAM HYDROBROMIDE 10 MG TABLET PO SCH (09:08)
[2021-03-15] MEDS: ENOXAPARIN NA (PORCINE) 40 MG/0.4 ML DISP.SYRIN SQ SCH (09:08)
[2021-03-15] MEDS ORDERED: MAGNESIUM SULFATE IN WATER 2 GM/50 ML IVPB IVPB ONE (09:14)
[2021-03-15] MEDS ORDERED: MAGNESIUM 2GM/50ML STERILE WATER IVPB IVPB ONE (09:30)
[2021-03-15] MEDS ORDERED: CEFTRIAXONE 1 GM in DEXTROSE 5%-WATER - 50 ML IVPB ONE (10:00)
[2021-03-15] MEDS ORDERED: AMBRISENTAN 5 MG PO SCH (10:00)
[2021-03-15] MEDS ORDERED: KCL 10 MEQ IVPB 10 MEQ/100 ML INFUS.BAG IVPB ONE ×2 (10:26→11:58)
[2021-03-15] MEDS: KCL 10 MEQ IVPB 10 MEQ/100 ML INFUS.BAG IVPB SCH ×2 (10:36→12:06)
[2021-03-15] MEDS ORDERED: traMADol HCL 50 MG TABLET PO SCH (11:45)
[2021-03-15] MEDS ORDERED: TETRAHYDROZOLINE HCL EYE DROPS OU PRN (12:06)
[2021-03-15] MEDS: predniSONE 5 MG TABLET (UD) PO SCH (12:30)
[2021-03-15] MEDS ORDERED: ACETAMINOPHEN 1000 MG/100 ML BAG IVPB PRN (13:23)
[2021-03-15] MEDS ORDERED: oxyCODONE HCL 10 MG SUSTAINED ACTING TABLET PO SCH (22:00)
[2021-03-15] MEDS ORDERED: PT OWN MED DRAWER 7, Y5N ONE (22:03)
[2021-03-15] MEDS: RAMIPRIL 5 MG CAPSULE PO SCH (22:21)
[2021-03-15] MEDS: ATORVASTATIN CA 40 MG TABLET (FP) PO SCH (22:21)
[2021-03-15] MEDS: MELATONIN 5 MG TABLETS PO PRN (22:38)
[2021-03-15] MEDS: MYCOPHENOLATE MOFETIL 500 MG TABLET PO SCH (23:03)
[2021-03-15] MEDS: PRAZOSIN HCL 1 MG CAPSULE PO SCH (23:04)
[2021-03-16] MEDS: INSULIN SLIDING SCALE (NOVOLOG) 1 VIAL SQ SCH ×4 (06:33→22:10)
[2021-03-16 08:22] LABS: HEMATOCRIT 33.5 % (32.4-45.2); HEMOGLOBIN 10.9 GM/dL (10.7-15.3); MCH 28.3 pg (25.7-33.7); MCHC 32.6 g/dl (32.0-36.0); MEAN CELL VOLUME 86.9 fl (80-96); MEAN PLT VOLUME 8.5 fl (7.5-11.1); PLATELET COUNT 535 10^3/uL (134-434); RBC 3.85 M/mm3 (3.60-5.2); RDW 16.8 % (11.6-15.6); WHITE BLOOD COUNT 10.3 K/mm3 (4.0-10.0)
[2021-03-16 08:46] LABS: ALBUMIN 2.9 g/dl (3.4-5.0); CALCIUM 8.8 mg/dL (8.5-10.1); MAGNESIUM 1.7 mg/dL (1.8-2.4)
[2021-03-16 08:48] LABS: BLOOD UREA NITROGEN 15.7 mg/dL (7-18)
[2021-03-16 08:49] LABS: CREATININE 0.5 mg/dL (0.55-1.3); PHOSPHOROUS 3.5 mg/dL (2.5-4.9)
[2021-03-16 08:50] LABS: BILIRUBIN,TOTAL 0.8 mg/dL (0.2-1)
[2021-03-16 08:51] LABS: TOT PROT 6.1 g/dl (6.4-8.2)
[2021-03-16] MEDS ORDERED: CEFTRIAXONE 1 GM in DEXTROSE 5%-WATER - 50 ML IVPB ONE (10:00)
[2021-03-16] MEDS ORDERED: PT OWN MED DRAWER 7, Y5N ONE ×2 (10:06→21:29)
[2021-03-16] MEDS: ENOXAPARIN NA (PORCINE) 40 MG/0.4 ML DISP.SYRIN SQ SCH (10:38)
[2021-03-16] MEDS: MYCOPHENOLATE MOFETIL 500 MG TABLET PO SCH ×2 (10:39→22:06)
[2021-03-16] MEDS: PANTOPRAZOLE SODIUM 40 MG VIAL IVPUSH SCH (10:39)
[2021-03-16] MEDS: predniSONE 5 MG TABLET (UD) PO SCH (10:39)
[2021-03-16] MEDS: PRAZOSIN HCL 1 MG CAPSULE PO SCH ×2 (10:39→22:07)
[2021-03-16] MEDS: CITALOPRAM HYDROBROMIDE 10 MG TABLET PO SCH (10:39)
[2021-03-16] MEDS: AZITHROMYCIN 250 MG TABLET PO SCH (10:39)
[2021-03-16] MEDS: NIFEdipine E.R. 30 MG TABLET PO SCH (10:39)
[2021-03-16] MEDS ORDERED: cefTRIAXone SODIUM 1 GM VIAL ONE (10:41)
[2021-03-16] MEDS ORDERED: DEXTROSE 5%-WATER - 50 ML IVPB ONE (10:41)
[2021-03-16] MEDS: methylPREDNISolone NA SUCC 40 MG/1 ML VIAL IVPUSH SCH ×3 (12:01→22:06)
[2021-03-16] MEDS ORDERED: MAGNESIUM 1GM/D5W 100ML - 100 ML IVPB IVPB ONE (13:00)
[2021-03-16] MEDS: ATORVASTATIN CA 40 MG TABLET (FP) PO SCH (22:06)
[2021-03-16] MEDS: RAMIPRIL 5 MG CAPSULE PO SCH (22:07)
[2021-03-17] MEDS: methylPREDNISolone NA SUCC 40 MG/1 ML VIAL IVPUSH SCH ×3 (03:12→21:35)
[2021-03-17] MEDS: INSULIN SLIDING SCALE (NOVOLOG) 1 VIAL SQ SCH ×4 (06:16→21:37)
[2021-03-17 07:59] LABS: HEMATOCRIT 34.1 % (32.4-45.2); HEMOGLOBIN 11.2 GM/dL (10.7-15.3); MCH 28.4 pg (25.7-33.7); MCHC 32.9 g/dl (32.0-36.0); MEAN CELL VOLUME 86.5 fl (80-96); MEAN PLT VOLUME 8.6 fl (7.5-11.1); PLATELET COUNT 604 10^3/uL (134-434); RBC 3.94 M/mm3 (3.60-5.2); WHITE BLOOD COUNT 13.7 K/mm3 (4.0-10.0)
[2021-03-17 08:40] LABS: CALCIUM 9.2 mg/dL (8.5-10.1)
[2021-03-17 08:41] LABS: MAGNESIUM 2.1 mg/dL (1.8-2.4)
[2021-03-17 08:43] LABS: CREATININE 0.5 mg/dL (0.55-1.3); PHOSPHOROUS 3.4 mg/dL (2.5-4.9)
[2021-03-17 08:45] LABS: BILIRUBIN,TOTAL 0.4 mg/dL (0.2-1); TOT PROT 6.4 g/dl (6.4-8.2)
[2021-03-17] MEDS ORDERED: PT OWN MED DRAWER 7, Y5N ONE ×2 (09:22→21:33)
[2021-03-17] MEDS: INSULIN (LEVEMIR) 100 UNITS/ML UNITS SQ SCH ×2 (09:55→21:36)
[2021-03-17] MEDS: CITALOPRAM HYDROBROMIDE 10 MG TABLET PO SCH (09:56)
[2021-03-17] MEDS: PRAZOSIN HCL 1 MG CAPSULE PO SCH ×2 (09:56→21:37)
[2021-03-17] MEDS: ENOXAPARIN NA (PORCINE) 40 MG/0.4 ML DISP.SYRIN SQ SCH (09:56)
[2021-03-17] MEDS: MYCOPHENOLATE MOFETIL 500 MG TABLET PO SCH ×2 (09:56→21:36)
[2021-03-17] MEDS: NIFEdipine E.R. 30 MG TABLET PO SCH (09:56)
[2021-03-17] MEDS: PANTOPRAZOLE SODIUM 40 MG VIAL IVPUSH SCH ×2 (09:57→21:39)
[2021-03-17] MEDS: AZITHROMYCIN 250 MG TABLET PO SCH (09:57)
[2021-03-17] MEDS ORDERED: CITALOPRAM HYDROBROMIDE 20 MG TABLET PO ONE (11:40)
[2021-03-17] MEDS: INSULIN (NOVOLOG) ASPART 100 UNITS/ML 10ML VIAL SQ SCH ×2 (11:41→16:55)
[2021-03-17] MEDS: NINTEDANIB ESYLATE 100 MG PO SCH ×2 (12:15→21:39)
[2021-03-17] MEDS: ATORVASTATIN CA 40 MG TABLET (FP) PO SCH (21:36)
[2021-03-17] MEDS: AMBRISENTAN 5 MG PO SCH (21:39)
[2021-03-17] MEDS: RAMIPRIL 5 MG CAPSULE PO SCH (21:39)
[2021-03-18] MEDS: methylPREDNISolone NA SUCC 40 MG/1 ML VIAL IVPUSH SCH ×3 (01:33→21:52)
[2021-03-18] MEDS: traMADol HCL 50 MG TABLET PO PRN ×2 (02:54→22:00)
[2021-03-18] MEDS ORDERED: PT OWN MED DRAWER 7, Y5N ONE ×2 (05:48→21:44)
[2021-03-18] MEDS: INSULIN (NOVOLOG) ASPART 100 UNITS/ML 10ML VIAL SQ SCH ×3 (06:31→18:48)
[2021-03-18] MEDS: INSULIN SLIDING SCALE (NOVOLOG) 1 VIAL SQ SCH ×4 (06:31→21:55)
[2021-03-18] MEDS: INSULIN (LEVEMIR) 100 UNITS/ML UNITS SQ SCH ×2 (06:31→21:54)
[2021-03-18 08:28] LABS: HEMATOCRIT 33.3 % (32.4-45.2); HEMOGLOBIN 10.7 GM/dL (10.7-15.3); MEAN CELL VOLUME 87.5 fl (80-96); MEAN PLT VOLUME 8.5 fl (7.5-11.1); PLATELET COUNT 584 10^3/uL (134-434); RDW 16.8 % (11.6-15.6); WHITE BLOOD COUNT 17.4 K/mm3 (4.0-10.0)
[2021-03-18 08:55] LABS: MAGNESIUM 1.7 mg/dL (1.8-2.4)
[2021-03-18 08:56] LABS: BLOOD UREA NITROGEN 21.8 mg/dL (7-18)
[2021-03-18 08:57] LABS: PHOSPHOROUS 3.2 mg/dL (2.5-4.9)
[2021-03-18 08:58] LABS: BILIRUBIN,TOTAL 0.3 mg/dL (0.2-1); CREATININE 0.6 mg/dL (0.55-1.3); TOT PROT 6.3 g/dl (6.4-8.2)
[2021-03-18] MEDS ORDERED: MAGNESIUM SULF 50% (8.12 MEQ/2 ML-1 GM VIAL) IVPB ONE (09:23)
[2021-03-18] MEDS ORDERED: MAGNESIUM OXIDE 400 MG TABLET (FP) PO ONE (11:41)
[2021-03-18] MEDS: PANTOPRAZOLE SODIUM 40 MG VIAL IVPUSH SCH ×2 (12:09→21:59)
[2021-03-18] MEDS: AZITHROMYCIN 250 MG TABLET PO SCH (12:13)
[2021-03-18] MEDS: ENOXAPARIN NA (PORCINE) 40 MG/0.4 ML DISP.SYRIN SQ SCH (12:13)
[2021-03-18] MEDS: NIFEdipine E.R. 30 MG TABLET PO SCH (12:14)
[2021-03-18] MEDS: CITALOPRAM HYDROBROMIDE 10 MG TABLET PO SCH (12:14)
[2021-03-18] MEDS: PRAZOSIN HCL 1 MG CAPSULE PO SCH ×2 (12:16→21:58)
[2021-03-18] MEDS: NINTEDANIB ESYLATE 100 MG PO SCH ×2 (12:17→21:56)
[2021-03-18] MEDS: MYCOPHENOLATE MOFETIL 500 MG TABLET PO SCH ×2 (12:19→21:59)
[2021-03-18] MEDS ORDERED: cefTRIAXone SODIUM 1 GM VIAL ONE (14:36)
[2021-03-18] MEDS ORDERED: DEXTROSE 5%-WATER - 50 ML IVPB ONE (14:36)
[2021-03-18] MEDS: CEFTRIAXONE 1 GM in DEXTROSE 5%-WATER - 50 ML IVPB SCH (14:43)
[2021-03-18] MEDS: RAMIPRIL 5 MG CAPSULE PO SCH (21:54)
[2021-03-18] MEDS: AMBRISENTAN 5 MG PO SCH (21:56)
[2021-03-18] MEDS: ATORVASTATIN CA 40 MG TABLET (FP) PO SCH (21:58)
[2021-03-18] MEDS: MELATONIN 5 MG TABLETS PO PRN (22:00)
[2021-03-19] MEDS: INSULIN (NOVOLOG) ASPART 100 UNITS/ML 10ML VIAL SQ SCH ×4 (06:03→17:04)
[2021-03-19] MEDS: INSULIN SLIDING SCALE (NOVOLOG) 1 VIAL SQ SCH ×4 (06:03→21:37)
[2021-03-19] MEDS: INSULIN (LEVEMIR) 100 UNITS/ML UNITS SQ SCH ×3 (06:04→21:38)
[2021-03-19 09:46] LABS: HEMATOCRIT 34.4 % (32.4-45.2); MCHC 32.1 g/dl (32.0-36.0); MEAN CELL VOLUME 87.4 fl (80-96); MEAN PLT VOLUME 8.4 fl (7.5-11.1); PLATELET COUNT 570 10^3/uL (134-434); RBC 3.94 M/mm3 (3.60-5.2); RDW 16.4 % (11.6-15.6); WHITE BLOOD COUNT 14.9 K/mm3 (4.0-10.0)
[2021-03-19 10:10] LABS: CALCIUM 9.3 mg/dL (8.5-10.1)
[2021-03-19 10:11] LABS: BLOOD UREA NITROGEN 20.5 mg/dL (7-18); MAGNESIUM 1.9 mg/dL (1.8-2.4)
[2021-03-19 10:14] LABS: CREATININE 0.5 mg/dL (0.55-1.3); PHOSPHOROUS 3.3 mg/dL (2.5-4.9)
[2021-03-19 10:15] LABS: BILIRUBIN,TOTAL 0.4 mg/dL (0.2-1); TOT PROT 6.3 g/dl (6.4-8.2)
[2021-03-19] MEDS ORDERED: DEXTROSE 5%-WATER - 50 ML IVPB ONE (10:26)
[2021-03-19] MEDS ORDERED: cefTRIAXone SODIUM 1 GM VIAL ONE (10:26)
[2021-03-19] MEDS: CEFTRIAXONE 1 GM in DEXTROSE 5%-WATER - 50 ML IVPB SCH (10:31)
[2021-03-19] MEDS: PANTOPRAZOLE SODIUM 40 MG VIAL IVPUSH SCH ×2 (10:31→21:37)
[2021-03-19] MEDS: ENOXAPARIN NA (PORCINE) 40 MG/0.4 ML DISP.SYRIN SQ SCH (10:32)
[2021-03-19] MEDS: NIFEdipine E.R. 30 MG TABLET PO SCH (10:32)
[2021-03-19] MEDS: CITALOPRAM HYDROBROMIDE 10 MG TABLET PO SCH (10:33)
[2021-03-19] MEDS: PRAZOSIN HCL 1 MG CAPSULE PO SCH ×2 (10:33→21:36)
[2021-03-19] MEDS: MYCOPHENOLATE MOFETIL 500 MG TABLET PO SCH ×2 (10:34→21:36)
[2021-03-19] MEDS: NINTEDANIB ESYLATE 100 MG PO SCH ×2 (10:34→21:50)
[2021-03-19] MEDS: methylPREDNISolone NA SUCC 40 MG/1 ML VIAL IVPUSH SCH (10:35)
[2021-03-19] MEDS: RAMIPRIL 5 MG CAPSULE PO SCH (21:36)
[2021-03-19] MEDS: ATORVASTATIN CA 40 MG TABLET (FP) PO SCH (21:36)
[2021-03-19] MEDS: AMBRISENTAN 5 MG PO SCH (21:39)
[2021-03-20] MEDS: INSULIN SLIDING SCALE (NOVOLOG) 1 VIAL SQ SCH ×4 (06:30→21:06)
[2021-03-20] MEDS: INSULIN (NOVOLOG) ASPART 100 UNITS/ML 10ML VIAL SQ SCH ×3 (07:45→16:56)
[2021-03-20] MEDS: INSULIN (LEVEMIR) 100 UNITS/ML UNITS SQ SCH (07:46)
[2021-03-20] MEDS: traMADol HCL 50 MG TABLET PO PRN (07:49)
[2021-03-20 08:22] LABS: HEMATOCRIT 34.2 % (32.4-45.2); HEMOGLOBIN 11.4 GM/dL (10.7-15.3); MCH 28.5 pg (25.7-33.7); MCHC 33.3 g/dl (32.0-36.0); MEAN CELL VOLUME 85.6 fl (80-96); PLATELET COUNT 544 10^3/uL (134-434); RDW 16.4 % (11.6-15.6); WHITE BLOOD COUNT 14.2 K/mm3 (4.0-10.0)
[2021-03-20 08:47] LABS: ALBUMIN 3.2 g/dl (3.4-5.0); BLOOD UREA NITROGEN 18.3 mg/dL (7-18); CALCIUM 9.2 mg/dL (8.5-10.1); MAGNESIUM 1.6 mg/dL (1.8-2.4)
[2021-03-20 08:50] LABS: CREATININE 0.5 mg/dL (0.55-1.3); PHOSPHOROUS 4.1 mg/dL (2.5-4.9)
[2021-03-20 08:52] LABS: BILIRUBIN,TOTAL 0.4 mg/dL (0.2-1); TOT PROT 6.4 g/dl (6.4-8.2)
[2021-03-20] MEDS ORDERED: DEXTROSE 5%-WATER - 50 ML IVPB ONE (10:00)
[2021-03-20] MEDS ORDERED: cefTRIAXone SODIUM 1 GM VIAL ONE ×2 (10:00→10:03)
[2021-03-20] MEDS: CEFTRIAXONE 1 GM in DEXTROSE 5%-WATER - 50 ML IVPB SCH (10:29)
[2021-03-20] MEDS: PANTOPRAZOLE SODIUM 40 MG VIAL IVPUSH SCH ×2 (10:29→21:10)
[2021-03-20] MEDS: methylPREDNISolone NA SUCC 40 MG/1 ML VIAL IVPUSH SCH (10:29)
[2021-03-20] MEDS: ENOXAPARIN NA (PORCINE) 40 MG/0.4 ML DISP.SYRIN SQ SCH (10:30)
[2021-03-20] MEDS: CITALOPRAM HYDROBROMIDE 10 MG TABLET PO SCH (10:30)
[2021-03-20] MEDS: NIFEdipine E.R. 30 MG TABLET PO SCH (10:30)
[2021-03-20] MEDS: PRAZOSIN HCL 1 MG CAPSULE PO SCH ×2 (10:31→21:12)
[2021-03-20] MEDS: MYCOPHENOLATE MOFETIL 500 MG TABLET PO SCH ×2 (10:31→21:11)
[2021-03-20] MEDS: NINTEDANIB ESYLATE 100 MG PO SCH ×2 (10:32→21:12)
[2021-03-20] MEDS ORDERED: MAGNESIUM OXIDE 400 MG TABLET (FP) PO ONE (15:27)
[2021-03-20] MEDS: AMBRISENTAN 5 MG PO SCH (21:11)
[2021-03-20] MEDS: RAMIPRIL 5 MG CAPSULE PO SCH (21:11)
[2021-03-20] MEDS: ATORVASTATIN CA 40 MG TABLET (FP) PO SCH (21:27)
[2021-03-20] MEDS ORDERED: INSULIN (LEVEMIR) 100 UNITS/ML UNITS SQ SCH (22:00)
[2021-03-21] MEDS: INSULIN SLIDING SCALE (NOVOLOG) 1 VIAL SQ SCH ×3 (07:07→16:56)
[2021-03-21] MEDS: INSULIN (NOVOLOG) ASPART 100 UNITS/ML 10ML VIAL SQ SCH ×3 (07:07→16:56)
[2021-03-21] MEDS: INSULIN (LEVEMIR) 100 UNITS/ML UNITS SQ SCH (07:07)
[2021-03-21 07:37] LABS: HEMATOCRIT 35.4 % (32.4-45.2); HEMOGLOBIN 11.3 GM/dL (10.7-15.3); MCH 27.6 pg (25.7-33.7); MCHC 31.8 g/dl (32.0-36.0); MEAN CELL VOLUME 86.8 fl (80-96); PLATELET COUNT 566 10^3/uL (134-434); RBC 4.07 M/mm3 (3.60-5.2); RDW 16.2 % (11.6-15.6); WHITE BLOOD COUNT 12.4 K/mm3 (4.0-10.0)
[2021-03-21 07:59] LABS: MAGNESIUM 1.7 mg/dL (1.8-2.4)
[2021-03-21 08:00] LABS: BLOOD UREA NITROGEN 19.3 mg/dL (7-18)
[2021-03-21 08:03] LABS: CREATININE 0.5 mg/dL (0.55-1.3); PHOSPHOROUS 4.2 mg/dL (2.5-4.9)
[2021-03-21] MEDS: ENOXAPARIN NA (PORCINE) 40 MG/0.4 ML DISP.SYRIN SQ SCH (09:47)
[2021-03-21] MEDS: CITALOPRAM HYDROBROMIDE 10 MG TABLET PO SCH (09:48)
[2021-03-21] MEDS: NIFEdipine E.R. 30 MG TABLET PO SCH (09:48)
[2021-03-21] MEDS: PRAZOSIN HCL 1 MG CAPSULE PO SCH (09:49)
[2021-03-21] MEDS: MYCOPHENOLATE MOFETIL 500 MG TABLET PO SCH (09:49)
[2021-03-21] MEDS: methylPREDNISolone NA SUCC 40 MG/1 ML VIAL IVPUSH SCH (09:50)
[2021-03-21] MEDS: PANTOPRAZOLE SODIUM 40 MG VIAL IVPUSH SCH (09:53)
[2021-03-21] MEDS: NINTEDANIB ESYLATE 100 MG PO SCH (09:58)
[2021-03-21] MEDS ORDERED: PT OWN MED DRAWER 7, Y5N ONE (10:17)
[2021-03-21 13:17] VITALS: BP 128/63; PULSE 95; TEMP 98.6
[2021-03-21] MEDS ORDERED: INSULIN (LEVEMIR) 100 UNITS/ML UNITS SQ SCH (22:00)
== END 2021-03-21 17:40 | disposition home or self-care (01) | DRG 196 ==
LOC: JER 18:41 → JERBED 22:03 → J4S 03-15 15:15
PROVIDERS: ADMIT Hospitalist; ATTEND Internal Medicine
DX: J84.9 Interstitial pulmonary disease, unspecified (principal); J96.21 Acute and chronic respiratory failure with hypoxia; I24.8 Other forms of acute ischemic heart disease; D61.9 Aplastic anemia, unspecified; I27.20 Pulmonary hypertension, unspecified; I10 Essential (primary) hypertension; E78.5 Hyperlipidemia, unspecified; E11.9 Type 2 diabetes mellitus without complications; J84.10 Pulmonary fibrosis, unspecified; M34.9 Systemic sclerosis, unspecified; M06.9 Rheumatoid arthritis, unspecified; G56.00 Carpal tunnel syndrome, unspecified upper limb; E11.65 Type 2 diabetes mellitus with hyperglycemia; K21.9 Gastro-esophageal reflux disease without esophagitis; D63.8 Anemia in other chronic diseases classified elsewhere; K22.4 Dyskinesia of esophagus; D50.9 Iron deficiency anemia, unspecified
CPT/HCPCS: 36415; 71045-TC-FY; 71275-TC; 74230-TC-FY; 80048; 80053; 80061; 82550; 82553; 82728; 82803; 82962; 83540; 83550; 83735; 83880; 84100; 84443; 84484; 85025; 85027; 85045; 85610; 85730; 87804; 87807; 92611-GN; 93005; 93010; 93306-TC; 94761; 97116-GP; 97161-GP; 99285-25; C9803; J0131; J7517; Q9967; U0003; U0005

== ENCOUNTER 2021-07-04 22:15 | Inpatient (IN) | payer OTHER ==
[2021-07-04] MEDS ORDERED: VANCOMYCIN 1 GM in D5W (PRE-DOCKED) 1,000 MG/250 ML IVPB ONE (23:07)
[2021-07-04] MEDS ORDERED: PIPERACILLIN/TAZOB 4.5 GM 4.5 GM in DEXTROSE 5%-WATER 100 ML IVPB ONE (23:08)
[2021-07-04 23:21] LABS: BASO % 0.5 % (0-2.0); EOS % 1.2 % (0-4.5); HEMOGLOBIN 10.2 GM/dL (10.7-15.3); LYMPH % 4.8 % (8-40); MCHC 31.9 g/dl (32.0-36.0); MEAN CELL VOLUME 93.9 fl (80-96); MEAN PLT VOLUME 8.3 fl (7.5-11.1); MONO % 2.8 % (3.8-10.2); NEUT % 90.7 % (42.8-82.8); PLATELET COUNT 592 10^3/uL (134-434); RBC 3.41 M/mm3 (3.60-5.2); WHITE BLOOD COUNT 13.9 K/mm3 (4.0-10.0)
[2021-07-04 23:22] LABS: VENOUS BASE EXCESS -13.3 mmol/L (-2-2); VENOUS O2 SATURATION 82.8 % (70-80); VENOUS PCO2 42.3 mmHg (38-52)
[2021-07-04 23:24] LABS: VENOUS PH 7.16 (7.310-7.410)
[2021-07-04 23:30] LABS: INR 1.23 (0.83-1.09); PROTHROMBIN TIME (PATIENT) 14.2 SEC (9.7-13.0)
[2021-07-04 23:33] LABS: ACTIVATED PTT 28.6 SECONDS (25.2-36.5)
[2021-07-04] MEDS ORDERED: VANCOMYCIN 1 GRAM (PRE-DOCKED) 1,000 MG/250 ML BAG IVPB ONE (23:34)
[2021-07-04 23:36] LABS: EPI CELLS 9 /uL (0-25.1); HYALINE CASTS 3 /uL (0-3.1); URINE APPEARANCE CLEAR; URINE BACTERIA 7 /uL (0-1359); URINE BILIRUBIN NEGATIVE (NEGATIVE); URINE COLOR YELLOW; URINE GLUCOSE (UA) 3+ (NEGATIVE); URINE KETONE TRACE (NEGATIVE); URINE LEUK ESTERASE NEGATIVE (NEGATIVE); URINE NITRITE NEGATIVE (NEGATIVE); URINE PROTEIN 2+ (NEGATIVE); URINE RBC 7 /uL (0-23.9); URINE WBC 7 /uL (0-25.8)
[2021-07-04] MEDS ORDERED: ACETAMINOPHEN 1000 MG/100 ML BAG IVPB ONE (23:41)
[2021-07-04 23:48] LABS: CALCIUM 8.3 mg/dL (8.5-10.1)
[2021-07-04] MEDS ORDERED: ACETAMINOPHEN INJECTION 100 ML IVPB ONE (23:48)
[2021-07-04 23:49] LABS: BLOOD UREA NITROGEN 19.1 mg/dL (7-18)
[2021-07-04 23:52] LABS: CREATININE 0.8 mg/dL (0.55-1.3)
[2021-07-04 23:53] LABS: TOT PROT 6.7 g/dl (6.4-8.2)
[2021-07-04 23:55] LABS: N-TERMINAL BNP 440.3 pg/ml (5-125)
[2021-07-05] LABS: LACTIC ACID 10.8 mmol/L (0.4-2.0)
[2021-07-05] MEDS ORDERED: ASPIRIN 81 MG CHEWABLE TABLETS PO ONE (00:10)
[2021-07-05] MEDS ORDERED: ASPIRIN 81 MG CHEWABLE TABLETS ONE (01:23)
[2021-07-05] MEDS ORDERED: traMADol HCL 50 MG TABLET PO ONE (02:18)
[2021-07-05] MEDS ORDERED: traMADol HCL 50 MG TABLET ONE (02:24)
[2021-07-05 02:26] LABS: LACTIC ACID 2.7 mmol/L (0.4-2.0)
[2021-07-05] MEDS ORDERED: HEPARIN NA (PORCINE) 5,000 UNITS/ML 1ML VIAL IVPUSH PRN ×2 (03:26)
[2021-07-05] MEDS ORDERED: CLOPIDOGREL BISULFATE 300 MG TABLET PO ONE (03:26)
[2021-07-05] MEDS ORDERED: HEPARIN INFUSION - 25,000 UNITS/500 ML INFUS.BAG IVPB SCH (03:30)
[2021-07-05] MEDS ORDERED: CLOPIDOGREL BISULFATE 300 MG TABLET ONE (04:15)
[2021-07-05] MEDS ORDERED: HEPARIN INFUSION - 25,000 UNITS/500 ML INFUS.BAG IVPB ONE (04:16)
[2021-07-05] MEDS ORDERED: methylPREDNISolone NA SUCC 40 MG/1 ML VIAL IVPUSH ONE (05:06)
[2021-07-05] MEDS ORDERED: SODIUM CHLORIDE 1,000 ML IV SCH (05:15)
[2021-07-05] MEDS ORDERED: SODIUM CHLORIDE 500 ML IV SCH (05:16)
[2021-07-05] MEDS ORDERED: methylPREDNISolone NA SUCC 40 MG/1 ML VIAL ONE (05:31)
[2021-07-05] MEDS ORDERED: ACETAMINOPHEN 325 MG TABLET (FP) PO PRN (05:48)
[2021-07-05] MEDS ORDERED: ACETAMINOPHEN 500 MG TABLET (FP) PO PRN (05:49)
[2021-07-05] MEDS: PROCHLORPERAZINE INJECTION 10 MG/2 ML VIAL IVPB PRN ×2 (05:50→21:37)
[2021-07-05] MEDS ORDERED: ALBUTEROL SO4 2.5/IPRATROPIUM 0.5 INH SOL 3 ML VIAL.NEB. NEB ONE (05:52)
[2021-07-05] MEDS: ALBUTEROL SO4 2.5/IPRATROPIUM 0.5 INH SOL 3 ML VIAL.NEB. NEB SCH ×5 (06:23→20:30)
[2021-07-05] MEDS ORDERED: ACETAMINOPHEN 1000 MG/100 ML BAG IVPB PRN (06:27)
[2021-07-05] MEDS ORDERED: MELATONIN 5 MG TABLETS PO PRN (06:27)
[2021-07-05 06:36] LABS: CALCIUM 8.7 mg/dL (8.5-10.1)
[2021-07-05 06:37] LABS: BLOOD UREA NITROGEN 14.8 mg/dL (7-18)
[2021-07-05 06:40] LABS: CREATININE 0.6 mg/dL (0.55-1.3)
[2021-07-05 06:47] LABS: RETICULOCYTES 2.85 % (0.5-1.5)
[2021-07-05] MEDS ORDERED: NIFEdipine E.R. 30 MG TABLET PO SCH (07:00)
[2021-07-05] MEDS ORDERED: SODIUM CHLORIDE 0.9% 500 ML INFUS.BAG IV ONE (07:07)
[2021-07-05] MEDS: INSULIN SLIDING SCALE (NOVOLOG) 1 VIAL SQ SCH ×4 (07:25→21:24)
[2021-07-05] MEDS: PIPERACILLIN/TAZOB 3.375 GM 3.375 GM in DEXTROSE 5%-WATER - 50 ML IVPB SCH ×2 (07:44→11:01)
[2021-07-05] MEDS ORDERED: NIFEdipine E.R. 30 MG TABLET ONE (07:48)
[2021-07-05] MEDS: KCL 10 MEQ IVPB 10 MEQ/100 ML INFUS.BAG IVPB SCH ×3 (09:11→14:01)
[2021-07-05] MEDS ORDERED: PIPERACILLIN/TAZOBACTAM 3.375 GM VIAL IVPB ONE ×2 (09:48→17:26)
[2021-07-05] MEDS ORDERED: DEXTROSE 5%-WATER - 50 ML IVPB ONE ×2 (09:48→17:26)
[2021-07-05] MEDS: PRAZOSIN HCL 1 MG CAPSULE PO SCH ×2 (09:55→23:18)
[2021-07-05] MEDS ORDERED: PANTOPRAZOLE 40 MG TABLET PO SCH (10:00)
[2021-07-05] MEDS ORDERED: PANTOPRAZOLE SODIUM 40 MG VIAL IVPUSH SCH (10:00)
[2021-07-05 11:12] LABS: INR 1.4 (0.83-1.09); PROTHROMBIN TIME (PATIENT) 16.1 SEC (9.7-13.0)
[2021-07-05 11:14] LABS: ACTIVATED PTT 43.7 SECONDS (25.2-36.5)
[2021-07-05 11:15] LABS: HEMOGLOBIN 9.3 GM/dL (10.7-15.3); MCH 29.6 pg (25.7-33.7); MCHC 33.2 g/dl (32.0-36.0); MEAN CELL VOLUME 89.3 fl (80-96); MEAN PLT VOLUME 8.5 fl (7.5-11.1); PLATELET COUNT 514 10^3/uL (134-434); RBC 3.13 M/mm3 (3.60-5.2); RDW 16.3 % (11.6-15.6); WHITE BLOOD COUNT 15.1 K/mm3 (4.0-10.0)
[2021-07-05] MEDS: methylPREDNISolone NA SUCC 40 MG/1 ML VIAL IVPUSH SCH ×2 (11:34→17:29)
[2021-07-05 11:35] LABS: CALCIUM 7.8 mg/dL (8.5-10.1)
[2021-07-05 11:36] LABS: BLOOD UREA NITROGEN 15.2 mg/dL (7-18)
[2021-07-05 11:37] LABS: ALBUMIN 3.6 g/dl (3.4-5.0)
[2021-07-05 11:38] LABS: CREATININE 0.4 mg/dL (0.55-1.3)
[2021-07-05 11:39] LABS: BILIRUBIN,TOTAL 0.6 mg/dL (0.2-1)
[2021-07-05] MEDS: MUPIROCIN 2% TOPICAL OINTMENT FOR DECOLONIZATION NS SCH ×2 (11:45→21:24)
[2021-07-05] MEDS ORDERED: AZITHROMYCIN IVPB 500 MG/250 ML BAG IVPB SCH (12:00)
[2021-07-05 12:03] LABS: MAGNESIUM 0.9 mg/dL (1.8-2.4)
[2021-07-05 12:11] LABS: PHOSPHOROUS 3.3 mg/dL (2.5-4.9)
[2021-07-05 13:03] LABS: ANISOCYTOSIS 0; MACROCYTOSIS 0
[2021-07-05] MEDS ORDERED: PIPERACILLIN/TAZOB 3.375 GM 3.375 GM in DEXTROSE 5%-WATER - 50 ML IVPB SCH (18:00)
[2021-07-05] MEDS ORDERED: ATORVASTATIN CA 80 MG TABLET (FP) PO SCH (22:00)
[2021-07-05] MEDS ORDERED: CHLORHEXIDINE GLUCONATE 4% CLEANSER FOR DECOLONIZATION TP SCH (22:00)
[2021-07-05] MEDS ORDERED: AMBRISENTAN 5 MG PO SCH (22:00)
[2021-07-05] MEDS ORDERED: INSULIN (LEVEMIR) 100 UNITS/ML UNITS SQ SCH (22:00)
[2021-07-06] MEDS ORDERED: ACETAMINOPHEN 1000 MG/100 ML BAG IVPB PRN (00:33)
[2021-07-06] MEDS ORDERED: HEPARIN NA (PORCINE) 5,000 UNITS/ML 1ML VIAL IVPUSH PRN ×2 (00:33)
[2021-07-06] MEDS ORDERED: PROCHLORPERAZINE INJECTION 10 MG/2 ML VIAL IVPB PRN (00:33)
[2021-07-06] MEDS ORDERED: PIPERACILLIN/TAZOBACTAM 3.375 GM VIAL IVPB ONE ×4 (01:31→21:36)
[2021-07-06] MEDS ORDERED: DEXTROSE 5%-WATER - 50 ML IVPB ONE ×4 (01:32→21:36)
[2021-07-06] MEDS: PIPERACILLIN/TAZOB 3.375 GM 3.375 GM in DEXTROSE 5%-WATER - 50 ML IVPB SCH ×3 (01:34→17:32)
[2021-07-06] MEDS: methylPREDNISolone NA SUCC 40 MG/1 ML VIAL IVPUSH SCH ×3 (01:35→17:32)
[2021-07-06] MEDS ORDERED: PIPERACILLIN/TAZOB 3.375 GM 3.375 GM in DEXTROSE 5%-WATER - 50 ML IVPB SCH (02:00)
[2021-07-06] MEDS: HEPARIN INFUSION - 25,000 UNITS/500 ML INFUS.BAG IVPB SCH ×3 (02:20→07:44)
[2021-07-06] MEDS: INSULIN SLIDING SCALE (NOVOLOG) 1 VIAL SQ SCH ×4 (06:15→21:33)
[2021-07-06] MEDS: NIFEdipine E.R. 30 MG TABLET PO SCH (06:17)
[2021-07-06 06:53] LABS: BASO % 0.1 % (0-2.0); HEMATOCRIT 26.9 % (32.4-45.2); HEMOGLOBIN 8.7 GM/dL (10.7-15.3); LYMPH % 6.6 % (8-40); MCH 29.1 pg (25.7-33.7); MCHC 32.3 g/dl (32.0-36.0); MEAN CELL VOLUME 90.1 fl (80-96); MEAN PLT VOLUME 8.6 fl (7.5-11.1); MONO % 3.2 % (3.8-10.2); NEUT % 90.1 % (42.8-82.8); PLATELET COUNT 429 10^3/uL (134-434); RBC 2.98 M/mm3 (3.60-5.2); RDW 16.3 % (11.6-15.6); WHITE BLOOD COUNT 16.8 K/mm3 (4.0-10.0)
[2021-07-06] MEDS: ALBUTEROL SO4 2.5/IPRATROPIUM 0.5 INH SOL 3 ML VIAL.NEB. NEB SCH ×4 (07:35→20:23)
[2021-07-06 08:44] LABS: CALCIUM 7.8 mg/dL (8.5-10.1)
[2021-07-06 08:45] LABS: BLOOD UREA NITROGEN 18.8 mg/dL (7-18); MAGNESIUM 1.1 mg/dL (1.8-2.4)
[2021-07-06 08:47] LABS: PHOSPHOROUS 2.7 mg/dL (2.5-4.9)
[2021-07-06 08:48] LABS: CREATININE 0.7 mg/dL (0.55-1.3)
[2021-07-06 08:49] LABS: BILIRUBIN,TOTAL 0.4 mg/dL (0.2-1); TOT PROT 5.7 g/dl (6.4-8.2)
[2021-07-06 08:52] LABS: ALBUMIN 2.8 g/dl (3.4-5.0)
[2021-07-06] MEDS: AZITHROMYCIN IVPB 500 MG/250 ML BAG IVPB SCH (09:02)
[2021-07-06] MEDS: PANTOPRAZOLE SODIUM 40 MG VIAL IVPUSH SCH (09:02)
[2021-07-06] MEDS: PRAZOSIN HCL 1 MG CAPSULE PO SCH ×2 (09:03→21:14)
[2021-07-06] MEDS: CLOPIDOGREL BISULFATE 75 MG TABLET (FP) PO SCH (09:03)
[2021-07-06] MEDS: ASPIRIN 81 MG CHEWABLE TABLETS PO SCH (09:04)
[2021-07-06] MEDS: MUPIROCIN 2% TOPICAL OINTMENT FOR DECOLONIZATION NS SCH ×2 (09:04→21:14)
[2021-07-06] MEDS ORDERED: CLOPIDOGREL BISULFATE 75 MG TABLET (FP) PO SCH (10:00)
[2021-07-06] MEDS ORDERED: ASPIRIN 81 MG CHEWABLE TABLETS PO SCH (10:00)
[2021-07-06] MEDS ORDERED: MAGNESIUM SULF 50% (8.12 MEQ/2 ML-1 GM VIAL) IVPB ONE (11:08)
[2021-07-06] MEDS: DOCUSATE SODIUM 100 MG CAPSULE (FP) PO SCH ×2 (13:25→21:14)
[2021-07-06] MEDS: CHLORHEXIDINE GLUCONATE 4% CLEANSER FOR DECOLONIZATION TP SCH (21:14)
[2021-07-06] MEDS: ATORVASTATIN CA 80 MG TABLET (FP) PO SCH (21:14)
[2021-07-06] MEDS: OFEV 100 MG PO SCH (21:15)
[2021-07-06] MEDS: MELATONIN 5 MG TABLETS PO PRN (21:23)
[2021-07-06] MEDS: INSULIN (LEVEMIR) 100 UNITS/ML UNITS SQ SCH (21:34)
[2021-07-07] MEDS: PIPERACILLIN/TAZOB 3.375 GM 3.375 GM in DEXTROSE 5%-WATER - 50 ML IVPB SCH ×3 (01:21→20:25)
[2021-07-07] MEDS ORDERED: ALBUTEROL SO4 2.5/IPRATROPIUM 0.5 INH SOL 3 ML VIAL.NEB. NEB ONE ×2 (06:20)
[2021-07-07 07:10] LABS: BASO % 0.2 % (0-2.0); EOS % 0.2 % (0-4.5); HEMATOCRIT 25.3 % (32.4-45.2); HEMOGLOBIN 8.2 GM/dL (10.7-15.3); LYMPH % 20.2 % (8-40); MCH 29.3 pg (25.7-33.7); MCHC 32.6 g/dl (32.0-36.0); MEAN CELL VOLUME 89.8 fl (80-96); MEAN PLT VOLUME 8.1 fl (7.5-11.1); MONO % 4.4 % (3.8-10.2); PLATELET COUNT 434 10^3/uL (134-434); RBC 2.82 M/mm3 (3.60-5.2); RDW 15.7 % (11.6-15.6); WHITE BLOOD COUNT 15.4 K/mm3 (4.0-10.0)
[2021-07-07] MEDS: DOCUSATE SODIUM 100 MG CAPSULE (FP) PO SCH ×3 (07:13→21:38)
[2021-07-07] MEDS: NIFEdipine E.R. 30 MG TABLET PO SCH (07:13)
[2021-07-07] MEDS: INSULIN SLIDING SCALE (NOVOLOG) 1 VIAL SQ SCH ×4 (07:13→21:58)
[2021-07-07 07:29] LABS: CALCIUM 7.5 mg/dL (8.5-10.1)
[2021-07-07 07:30] LABS: MAGNESIUM 1.1 mg/dL (1.8-2.4)
[2021-07-07] MEDS: ALBUTEROL SO4 2.5/IPRATROPIUM 0.5 INH SOL 3 ML VIAL.NEB. NEB SCH ×4 (07:30→20:37)
[2021-07-07 07:31] LABS: ALBUMIN 2.8 g/dl (3.4-5.0); BLOOD UREA NITROGEN 19.3 mg/dL (7-18)
[2021-07-07] MEDS ORDERED: ACETAMINOPHEN 1000 MG/100 ML BAG IVPB ONE (07:32)
[2021-07-07 07:33] LABS: CREATININE 0.5 mg/dL (0.55-1.3)
[2021-07-07 07:34] LABS: BILIRUBIN,TOTAL 0.6 mg/dL (0.2-1); TOT PROT 5.6 g/dl (6.4-8.2)
[2021-07-07] MEDS ORDERED: DEXTROSE 5%-WATER - 50 ML IVPB ONE ×2 (07:39→19:07)
[2021-07-07] MEDS ORDERED: PIPERACILLIN/TAZOBACTAM 3.375 GM VIAL IVPB ONE ×2 (07:39→19:07)
[2021-07-07] MEDS ORDERED: MAGNESIUM OXIDE 400 MG TABLET (FP) PO ONE (08:36)
[2021-07-07] MEDS ORDERED: POTASSIUM CHLORIDE TABS 20 MEQ TABLET.ER (FP) PO ONE (08:36)
[2021-07-07] MEDS ORDERED: NAPH,MB-DB/K PH,MBDB POWDER PACKET PO ONE (08:37)
[2021-07-07] MEDS: PANTOPRAZOLE SODIUM 40 MG VIAL IVPUSH SCH (09:30)
[2021-07-07] MEDS: AZITHROMYCIN IVPB 500 MG/250 ML BAG IVPB SCH (09:30)
[2021-07-07] MEDS: ASPIRIN 81 MG CHEWABLE TABLETS PO SCH (09:30)
[2021-07-07] MEDS: CLOPIDOGREL BISULFATE 75 MG TABLET (FP) PO SCH (09:31)
[2021-07-07] MEDS: predniSONE 5 MG TABLET (UD) PO SCH (09:31)
[2021-07-07] MEDS: PRAZOSIN HCL 1 MG CAPSULE PO SCH ×2 (09:31→21:57)
[2021-07-07] MEDS: MUPIROCIN 2% TOPICAL OINTMENT FOR DECOLONIZATION NS SCH ×2 (09:32→21:57)
[2021-07-07] MEDS: OFEV 100 MG PO SCH ×2 (09:33→21:58)
[2021-07-07] MEDS ORDERED: AMBRISENTAN 5 MG PO SCH (10:00)
[2021-07-07 13:06] VITALS: BMI 20.5
[2021-07-07] MEDS ORDERED: MIDAZOLAM HCL 2 MG/2 ML SINGLE DOSE VIAL ONE (14:18)
[2021-07-07] MEDS ORDERED: MIDAZOLAM HCL 2 MG/2 ML SINGLE DOSE VIAL IVPUSH ONE (14:54)
[2021-07-07] MEDS: HEPARIN INFUSION - 25,000 UNITS/500 ML INFUS.BAG IVPB SCH (15:17)
[2021-07-07] MEDS ORDERED: FUROSEMIDE 40 MG/4 ML INJECTABLE VIAL IVPUSH ONE (15:32)
[2021-07-07 15:39] LABS: LACTIC ACID 5.1 mmol/L (0.4-2.0)
[2021-07-07] MEDS ORDERED: FUROSEMIDE 40 MG/4 ML INJECTABLE VIAL ONE (15:45)
[2021-07-07] MEDS ORDERED: ATORVASTATIN CA 40 MG TABLET (FP) ONE (21:16)
[2021-07-07] MEDS: ATORVASTATIN CA 80 MG TABLET (FP) PO SCH (21:57)
[2021-07-07] MEDS: CHLORHEXIDINE GLUCONATE 4% CLEANSER FOR DECOLONIZATION TP SCH (21:57)
[2021-07-07] MEDS: INSULIN (LEVEMIR) 100 UNITS/ML UNITS SQ SCH (21:58)
[2021-07-07] MEDS ORDERED: ONDANSETRON 4 MG/2 ML VIAL IVPUSH ONE (22:58)
[2021-07-08] MEDS ORDERED: PIPERACILLIN/TAZOBACTAM 3.375 GM VIAL IVPB ONE ×3 (01:58→16:53)
[2021-07-08] MEDS ORDERED: DEXTROSE 5%-WATER - 50 ML IVPB ONE ×3 (01:59→16:53)
[2021-07-08] MEDS: PIPERACILLIN/TAZOB 3.375 GM 3.375 GM in DEXTROSE 5%-WATER - 50 ML IVPB SCH ×3 (02:34→17:12)
[2021-07-08 02:45] LABS: ARTERIAL BLD GAS O2 SATURATION 94.4 % (95-98); ARTERIAL BLOOD GAS BASE EXCESS 4.1 mmol/L (-2-2); ARTERIAL BLOOD GAS PO2 65.6 mmHg (80-100); ARTERIAL BLOOD GAS pH 7.488 (7.350-7.450)
[2021-07-08 02:46] LABS: ALLENS TEST POSITIVE
[2021-07-08 07:10] LABS: HEMATOCRIT 25.9 % (32.4-45.2); HEMOGLOBIN 8.5 GM/dL (10.7-15.3); MCH 29.1 pg (25.7-33.7); MEAN CELL VOLUME 88.2 fl (80-96); MEAN PLT VOLUME 8.8 fl (7.5-11.1); PLATELET COUNT 472 10^3/uL (134-434); RBC 2.94 M/mm3 (3.60-5.2); RDW 15.4 % (11.6-15.6); WHITE BLOOD COUNT 13.5 K/mm3 (4.0-10.0)
[2021-07-08] MEDS: DOCUSATE SODIUM 100 MG CAPSULE (FP) PO SCH ×3 (07:22→22:05)
[2021-07-08] MEDS: INSULIN SLIDING SCALE (NOVOLOG) 1 VIAL SQ SCH ×4 (07:22→22:08)
[2021-07-08] MEDS: NIFEdipine E.R. 30 MG TABLET PO SCH (07:24)
[2021-07-08] MEDS: ALBUTEROL SO4 2.5/IPRATROPIUM 0.5 INH SOL 3 ML VIAL.NEB. NEB SCH ×4 (07:40→20:12)
[2021-07-08 07:46] LABS: BLOOD UREA NITROGEN 12.3 mg/dL (7-18); CALCIUM 7.7 mg/dL (8.5-10.1)
[2021-07-08 07:49] LABS: CREATININE 0.5 mg/dL (0.55-1.3); PHOSPHOROUS 2.4 mg/dL (2.5-4.9)
[2021-07-08] MEDS: AZITHROMYCIN IVPB 500 MG/250 ML BAG IVPB SCH (09:45)
[2021-07-08] MEDS: predniSONE 5 MG TABLET (UD) PO SCH (09:45)
[2021-07-08] MEDS: ASPIRIN 81 MG CHEWABLE TABLETS PO SCH (09:45)
[2021-07-08] MEDS: PANTOPRAZOLE SODIUM 40 MG VIAL IVPUSH SCH (09:45)
[2021-07-08] MEDS: PRAZOSIN HCL 1 MG CAPSULE PO SCH ×2 (09:46→22:08)
[2021-07-08] MEDS: MUPIROCIN 2% TOPICAL OINTMENT FOR DECOLONIZATION NS SCH ×2 (09:46→22:05)
[2021-07-08] MEDS: CLOPIDOGREL BISULFATE 75 MG TABLET (FP) PO SCH (09:46)
[2021-07-08] MEDS: OFEV 100 MG PO SCH ×2 (09:47→22:09)
[2021-07-08] MEDS ORDERED: ALBUTEROL SO4 0.083% IH SOL 2.5 MG/3 ML VIAL.NEB. NEB PRN (11:02)
[2021-07-08] MEDS: methylPREDNISolone NA SUCC 40 MG/1 ML VIAL IVPUSH SCH ×2 (11:55→23:17)
[2021-07-08] MEDS: DEXMEDETOMIDINE HCL IVPB SCH (12:02)
[2021-07-08] MEDS: SODIUM CHLORIDE IVPB SCH (12:02)
[2021-07-08] MEDS ORDERED: AMBRISENTAN 5 MG PO SCH (16:00)
[2021-07-08] MEDS ORDERED: LACTATED RINGERS SOLUTION 1000 ML INFUS.BAG IV ONE (16:39)
[2021-07-08] MEDS ORDERED: SODIUM CHLORIDE 250 ML IV STA (16:50)
[2021-07-08] MEDS ORDERED: VASOPRESSIN 40 UNITS/100 ML BAG IV SCH (18:00)
[2021-07-08 20:54] LABS: ARTERIAL BLD GAS O2 SATURATION 99.2 % (95-98); ARTERIAL BLOOD GAS BASE EXCESS 3.8 mmol/L (-2-2); ARTERIAL BLOOD GAS PO2 162.7 mmHg (80-100); ARTERIAL BLOOD GAS pH 7.473 (7.350-7.450)
[2021-07-08 20:56] LABS: ALLENS TEST POSITIVE
[2021-07-08] MEDS: NOREPINEPHRINE BITARTRATE 16,000 MCG in SODIUM CHLORIDE 484 ML IV SCH (21:34)
[2021-07-08] MEDS ORDERED: MAGNESIUM 2GM/50ML STERILE WATER IVPB IVPB ONE (21:42)
[2021-07-08] MEDS ORDERED: POTASSIUM PHOSPHATE 30 MM in SODIUM CHLORIDE 250 ML IVPB ONE (21:43)
[2021-07-08] MEDS: CHLORHEXIDINE GLUCONATE 4% CLEANSER FOR DECOLONIZATION TP SCH (22:05)
[2021-07-08] MEDS: ATORVASTATIN CA 80 MG TABLET (FP) PO SCH (22:06)
[2021-07-08] MEDS: INSULIN (LEVEMIR) 100 UNITS/ML UNITS SQ SCH (22:06)
[2021-07-08 22:19] LABS: HEMATOCRIT 24.3 % (32.4-45.2); MCHC 32.8 g/dl (32.0-36.0); MEAN CELL VOLUME 88.7 fl (80-96); MEAN PLT VOLUME 8.4 fl (7.5-11.1); PLATELET COUNT 463 10^3/uL (134-434); RBC 2.75 M/mm3 (3.60-5.2); RDW 15.8 % (11.6-15.6); WHITE BLOOD COUNT 13.4 K/mm3 (4.0-10.0)
[2021-07-09] MEDS ORDERED: DEXTROSE 5%-WATER - 50 ML IVPB ONE ×3 (00:01→18:04)
[2021-07-09] MEDS ORDERED: PIPERACILLIN/TAZOBACTAM 3.375 GM VIAL IVPB ONE ×3 (00:01→18:04)
[2021-07-09] MEDS: PIPERACILLIN/TAZOB 3.375 GM 3.375 GM in DEXTROSE 5%-WATER - 50 ML IVPB SCH ×3 (01:02→18:05)
[2021-07-09] MEDS: methylPREDNISolone NA SUCC 40 MG/1 ML VIAL IVPUSH SCH ×3 (04:58→21:55)
[2021-07-09] MEDS: DOCUSATE SODIUM 100 MG CAPSULE (FP) PO SCH ×3 (05:41→21:55)
[2021-07-09] MEDS: INSULIN SLIDING SCALE (NOVOLOG) 1 VIAL SQ SCH ×4 (06:58→22:10)
[2021-07-09] MEDS: NIFEdipine E.R. 30 MG TABLET PO SCH (06:59)
[2021-07-09 07:17] LABS: ALBUMIN 2.3 g/dl (3.4-5.0); BLOOD UREA NITROGEN 20.4 mg/dL (7-18); CALCIUM 7.9 mg/dL (8.5-10.1); HEMATOCRIT 26.7 % (32.4-45.2); HEMOGLOBIN 8.6 GM/dL (10.7-15.3); MCH 29.1 pg (25.7-33.7); MCHC 32.4 g/dl (32.0-36.0); MEAN CELL VOLUME 89.7 fl (80-96); MEAN PLT VOLUME 8.8 fl (7.5-11.1); PLATELET COUNT 595 10^3/uL (134-434); RBC 2.97 M/mm3 (3.60-5.2); RDW 16.3 % (11.6-15.6); WHITE BLOOD COUNT 17.1 K/mm3 (4.0-10.0)
[2021-07-09 07:20] LABS: CREATININE 0.5 mg/dL (0.55-1.3); PHOSPHOROUS 5.2 mg/dL (2.5-4.9)
[2021-07-09 07:21] LABS: BILIRUBIN,TOTAL 1.3 mg/dL (0.2-1); TOT PROT 5.4 g/dl (6.4-8.2)
[2021-07-09] MEDS: ALBUTEROL SO4 2.5/IPRATROPIUM 0.5 INH SOL 3 ML VIAL.NEB. NEB SCH ×4 (08:20→20:05)
[2021-07-09] MEDS: ATOVAQUONE 750 MG/5 ML (UNIT-DOSE PACKAGING) PO SCH (08:55)
[2021-07-09] MEDS: ASPIRIN 81 MG CHEWABLE TABLETS PO SCH (09:27)
[2021-07-09] MEDS: CLOPIDOGREL BISULFATE 75 MG TABLET (FP) PO SCH (09:27)
[2021-07-09] MEDS: PANTOPRAZOLE SODIUM 40 MG VIAL IVPUSH SCH (09:28)
[2021-07-09] MEDS: ENOXAPARIN NA (PORCINE) 40 MG/0.4 ML DISP.SYRIN SQ SCH (09:30)
[2021-07-09] MEDS: PRAZOSIN HCL 1 MG CAPSULE PO SCH ×2 (09:30→22:03)
[2021-07-09] MEDS: MUPIROCIN 2% TOPICAL OINTMENT FOR DECOLONIZATION NS SCH ×2 (09:31→21:38)
[2021-07-09] MEDS: OFEV 100 MG PO SCH ×2 (09:31→22:03)
[2021-07-09] MEDS: AZITHROMYCIN IVPB 500 MG/250 ML BAG IVPB SCH (09:32)
[2021-07-09 10:50] LABS: ANISOCYTOSIS 0; HELMET CELLS 0; HOWELL-JOLLY BODIES 0; MACROCYTOSIS 0; OVALOCYTE 0; ROULEAU 0; SICKELED CELLS 0; TARGET CELLS 0; TEAR DROP CELLS 0; TOXIC GRANULATION 0
[2021-07-09] MEDS ORDERED: SODIUM ZIRCONIUM CYCLOSILICATE (LOKELMA) 5 GM PACKET PO ONE (10:52)
[2021-07-09] MEDS ORDERED: FUROSEMIDE 40 MG/4 ML INJECTABLE VIAL IVPUSH ONE (11:30)
[2021-07-09] MEDS: SODIUM CHLORIDE IVPB SCH (15:50)
[2021-07-09] MEDS: DEXMEDETOMIDINE HCL IVPB SCH (15:50)
[2021-07-09] MEDS: CHLORHEXIDINE GLUCONATE 4% CLEANSER FOR DECOLONIZATION TP SCH (21:38)
[2021-07-09] MEDS: SENNOSIDES 8.6MG TABLET (FP) PO PRN (21:55)
[2021-07-09] MEDS: MELATONIN 5 MG TABLETS PO PRN (21:55)
[2021-07-09] MEDS: ATORVASTATIN CA 80 MG TABLET (FP) PO SCH (21:55)
[2021-07-09] MEDS: INSULIN (LEVEMIR) 100 UNITS/ML UNITS SQ SCH (22:10)
[2021-07-10] MEDS ORDERED: DEXTROSE 5%-WATER - 50 ML IVPB ONE ×3 (01:29→17:43)
[2021-07-10] MEDS ORDERED: PIPERACILLIN/TAZOBACTAM 3.375 GM VIAL IVPB ONE ×3 (01:29→17:43)
[2021-07-10] MEDS: PIPERACILLIN/TAZOB 3.375 GM 3.375 GM in DEXTROSE 5%-WATER - 50 ML IVPB SCH ×3 (01:47→17:44)
[2021-07-10] MEDS: methylPREDNISolone NA SUCC 40 MG/1 ML VIAL IVPUSH SCH ×4 (03:22→21:26)
[2021-07-10] MEDS: NIFEdipine E.R. 30 MG TABLET PO SCH (06:52)
[2021-07-10] MEDS: DOCUSATE SODIUM 100 MG CAPSULE (FP) PO SCH ×3 (06:52→21:28)
[2021-07-10] MEDS: INSULIN SLIDING SCALE (NOVOLOG) 1 VIAL SQ SCH ×4 (06:53→21:48)
[2021-07-10] MEDS: NOREPINEPHRINE BITARTRATE 16,000 MCG in SODIUM CHLORIDE 484 ML IV SCH (07:00)
[2021-07-10] MEDS: DEXMEDETOMIDINE HCL IVPB SCH ×2 (07:00→12:15)
[2021-07-10] MEDS: SODIUM CHLORIDE IVPB SCH ×2 (07:00→12:15)
[2021-07-10 07:33] LABS: HEMATOCRIT 24.3 % (32.4-45.2); HEMOGLOBIN 8.1 GM/dL (10.7-15.3); MCH 29.3 pg (25.7-33.7); MCHC 33.5 g/dl (32.0-36.0); MEAN CELL VOLUME 87.4 fl (80-96); MEAN PLT VOLUME 8.7 fl (7.5-11.1); PLATELET COUNT 550 10^3/uL (134-434); RBC 2.78 M/mm3 (3.60-5.2); RDW 15.6 % (11.6-15.6); WHITE BLOOD COUNT 17.1 K/mm3 (4.0-10.0)
[2021-07-10 07:42] LABS: CALCIUM 8.3 mg/dL (8.5-10.1)
[2021-07-10 07:43] LABS: ALBUMIN 2.5 g/dl (3.4-5.0); BLOOD UREA NITROGEN 30.2 mg/dL (7-18)
[2021-07-10 07:46] LABS: CREATININE 0.5 mg/dL (0.55-1.3); PHOSPHOROUS 2.9 mg/dL (2.5-4.9)
[2021-07-10 07:48] LABS: BILIRUBIN,TOTAL 0.7 mg/dL (0.2-1); TOT PROT 5.5 g/dl (6.4-8.2)
[2021-07-10] MEDS: ALBUTEROL SO4 2.5/IPRATROPIUM 0.5 INH SOL 3 ML VIAL.NEB. NEB SCH ×4 (08:25→19:49)
[2021-07-10 08:43] LABS: ANISOCYTOSIS 1+; MACROCYTOSIS 0
[2021-07-10] MEDS: ATOVAQUONE 750 MG/5 ML (UNIT-DOSE PACKAGING) PO SCH (09:15)
[2021-07-10] MEDS: AZITHROMYCIN IVPB 500 MG/250 ML BAG IVPB SCH (09:19)
[2021-07-10] MEDS: PANTOPRAZOLE SODIUM 40 MG VIAL IVPUSH SCH (09:23)
[2021-07-10] MEDS: CLOPIDOGREL BISULFATE 75 MG TABLET (FP) PO SCH (09:32)
[2021-07-10] MEDS: ENOXAPARIN NA (PORCINE) 40 MG/0.4 ML DISP.SYRIN SQ SCH (09:32)
[2021-07-10] MEDS: PRAZOSIN HCL 1 MG CAPSULE PO SCH ×2 (09:32→21:26)
[2021-07-10] MEDS: ASPIRIN 81 MG CHEWABLE TABLETS PO SCH (09:32)
[2021-07-10] MEDS: OFEV 100 MG PO SCH ×2 (09:35→21:26)
[2021-07-10] MEDS ORDERED: FUROSEMIDE 40 MG/4 ML INJECTABLE VIAL IVPUSH ONE (11:55)
[2021-07-10] MEDS: POLYETHYLENE GLYCOL (HEALTHYLAX) 3350 17 GM PACKET PO SCH ×2 (17:44→21:28)
[2021-07-10] MEDS: SENNOSIDES 8.6MG TABLET (FP) PO PRN (21:25)
[2021-07-10] MEDS: MELATONIN 5 MG TABLETS PO PRN (21:26)
[2021-07-10] MEDS: ATORVASTATIN CA 80 MG TABLET (FP) PO SCH (21:26)
[2021-07-10] MEDS: CHLORHEXIDINE GLUCONATE 4% CLEANSER FOR DECOLONIZATION TP SCH (21:28)
[2021-07-10] MEDS: INSULIN (LEVEMIR) 100 UNITS/ML UNITS SQ SCH (21:29)
[2021-07-10] MEDS: ACETAMINOPHEN 1000 MG/100 ML BAG IVPB PRN (23:04)
[2021-07-11] MEDS ORDERED: DEXTROSE 5%-WATER - 50 ML IVPB ONE ×3 (01:33→16:05)
[2021-07-11] MEDS ORDERED: PIPERACILLIN/TAZOBACTAM 3.375 GM VIAL IVPB ONE ×3 (01:33→16:04)
[2021-07-11] MEDS: PIPERACILLIN/TAZOB 3.375 GM 3.375 GM in DEXTROSE 5%-WATER - 50 ML IVPB SCH ×3 (02:03→17:37)
[2021-07-11] MEDS: methylPREDNISolone NA SUCC 40 MG/1 ML VIAL IVPUSH SCH ×3 (04:32→18:05)
[2021-07-11] MEDS: NOREPINEPHRINE BITARTRATE 16,000 MCG in SODIUM CHLORIDE 484 ML IV SCH ×2 (05:56→18:05)
[2021-07-11] MEDS: INSULIN SLIDING SCALE (NOVOLOG) 1 VIAL SQ SCH ×4 (06:08→21:54)
[2021-07-11] MEDS: DOCUSATE SODIUM 100 MG CAPSULE (FP) PO SCH ×3 (06:20→21:39)
[2021-07-11 07:04] LABS: BASO % 0.1 % (0-2.0); EOS % 0.2 % (0-4.5); HEMATOCRIT 23.5 % (32.4-45.2); HEMOGLOBIN 7.8 GM/dL (10.7-15.3); MCH 29.2 pg (25.7-33.7); MEAN CELL VOLUME 88.3 fl (80-96); MEAN PLT VOLUME 8.3 fl (7.5-11.1); MONO % 6.4 % (3.8-10.2); NEUT % 82.3 % (42.8-82.8); PLATELET COUNT 485 10^3/uL (134-434); RBC 2.66 M/mm3 (3.60-5.2); RDW 15.6 % (11.6-15.6)
[2021-07-11 07:24] LABS: CALCIUM 8.4 mg/dL (8.5-10.1)
[2021-07-11 07:25] LABS: ALBUMIN 2.5 g/dl (3.4-5.0); BLOOD UREA NITROGEN 27.1 mg/dL (7-18); MAGNESIUM 1.7 mg/dL (1.8-2.4)
[2021-07-11 07:28] LABS: CREATININE 0.6 mg/dL (0.55-1.3); PHOSPHOROUS 3.2 mg/dL (2.5-4.9)
[2021-07-11 07:29] LABS: BILIRUBIN,TOTAL 0.6 mg/dL (0.2-1); TOT PROT 5.2 g/dl (6.4-8.2)
[2021-07-11] MEDS ORDERED: MAGNESIUM SULF 50% (8.12 MEQ/2 ML-1 GM VIAL) IVPB ONE (08:45)
[2021-07-11] MEDS: ATOVAQUONE 750 MG/5 ML (UNIT-DOSE PACKAGING) PO SCH (08:55)
[2021-07-11] MEDS: PRAZOSIN HCL 1 MG CAPSULE PO SCH ×2 (09:23→21:39)
[2021-07-11] MEDS: OFEV 100 MG PO SCH ×2 (09:25→21:40)
[2021-07-11] MEDS: AZITHROMYCIN IVPB 500 MG/250 ML BAG IVPB SCH (09:28)
[2021-07-11] MEDS: ASPIRIN 81 MG CHEWABLE TABLETS PO SCH (09:31)
[2021-07-11] MEDS: ENOXAPARIN NA (PORCINE) 40 MG/0.4 ML DISP.SYRIN SQ SCH (09:31)
[2021-07-11] MEDS: POLYETHYLENE GLYCOL (HEALTHYLAX) 3350 17 GM PACKET PO SCH ×2 (09:32→21:39)
[2021-07-11] MEDS: ACETAMINOPHEN 1000 MG/100 ML BAG IVPB PRN ×2 (09:32→21:38)
[2021-07-11] MEDS: PANTOPRAZOLE SODIUM 40 MG VIAL IVPUSH SCH (09:32)
[2021-07-11] MEDS: CLOPIDOGREL BISULFATE 75 MG TABLET (FP) PO SCH (09:32)
[2021-07-11] MEDS: NIFEdipine E.R. 30 MG TABLET PO SCH (09:35)
[2021-07-11] MEDS ORDERED: SODIUM PHOSPHATE/NA BIPHOS 133 ML ENEMA PR ONE (10:39)
[2021-07-11] MEDS ORDERED: SODIUM PHOSPHATE/NA BIPHOS 133 ML ENEMA RC ONE (10:39)
[2021-07-11] MEDS: DEXMEDETOMIDINE HCL IVPB SCH (12:09)
[2021-07-11] MEDS: SODIUM CHLORIDE IVPB SCH (12:09)
[2021-07-11] MEDS: MELATONIN 5 MG TABLETS PO PRN (21:39)
[2021-07-11] MEDS: ATORVASTATIN CA 80 MG TABLET (FP) PO SCH (21:39)
[2021-07-11] MEDS: CHLORHEXIDINE GLUCONATE 4% CLEANSER FOR DECOLONIZATION TP SCH (21:39)
[2021-07-11] MEDS: INSULIN (LEVEMIR) 100 UNITS/ML UNITS SQ SCH (21:54)
[2021-07-12] MEDS ORDERED: PIPERACILLIN/TAZOBACTAM 3.375 GM VIAL IVPB ONE ×3 (01:25→16:40)
[2021-07-12] MEDS ORDERED: DEXTROSE 5%-WATER - 50 ML IVPB ONE ×3 (01:25→16:40)
[2021-07-12] MEDS: PIPERACILLIN/TAZOB 3.375 GM 3.375 GM in DEXTROSE 5%-WATER - 50 ML IVPB SCH ×3 (02:45→18:34)
[2021-07-12] MEDS: methylPREDNISolone NA SUCC 40 MG/1 ML VIAL IVPUSH SCH ×2 (03:03→11:33)
[2021-07-12] MEDS: DOCUSATE SODIUM 100 MG CAPSULE (FP) PO SCH ×3 (06:32→21:27)
[2021-07-12] MEDS: INSULIN SLIDING SCALE (NOVOLOG) 1 VIAL SQ SCH ×4 (06:33→21:46)
[2021-07-12 07:21] LABS: BASO % 0.2 % (0-2.0); EOS % 0.5 % (0-4.5); HEMATOCRIT 26.8 % (32.4-45.2); HEMOGLOBIN 8.6 GM/dL (10.7-15.3); LYMPH % 7.8 % (8-40); MCH 28.6 pg (25.7-33.7); MCHC 32.1 g/dl (32.0-36.0); MEAN PLT VOLUME 8.7 fl (7.5-11.1); MONO % 5.7 % (3.8-10.2); NEUT % 85.8 % (42.8-82.8); PLATELET COUNT 532 10^3/uL (134-434); RBC 3.02 M/mm3 (3.60-5.2); RDW 15.7 % (11.6-15.6)
[2021-07-12 07:54] LABS: CALCIUM 9.3 mg/dL (8.5-10.1)
[2021-07-12 07:55] LABS: ALBUMIN 2.6 g/dl (3.4-5.0); BLOOD UREA NITROGEN 19.9 mg/dL (7-18); MAGNESIUM 1.8 mg/dL (1.8-2.4)
[2021-07-12 07:57] LABS: PHOSPHOROUS 3.5 mg/dL (2.5-4.9)
[2021-07-12 07:58] LABS: CREATININE 0.5 mg/dL (0.55-1.3)
[2021-07-12 07:59] LABS: BILIRUBIN,TOTAL 0.5 mg/dL (0.2-1); TOT PROT 5.6 g/dl (6.4-8.2)
[2021-07-12] MEDS: NIFEdipine E.R. 30 MG TABLET PO SCH (08:00)
[2021-07-12] MEDS: ATOVAQUONE 750 MG/5 ML (UNIT-DOSE PACKAGING) PO SCH (09:00)
[2021-07-12] MEDS: PRAZOSIN HCL 1 MG CAPSULE PO SCH ×2 (09:47→23:20)
[2021-07-12] MEDS: ENOXAPARIN NA (PORCINE) 40 MG/0.4 ML DISP.SYRIN SQ SCH (09:47)
[2021-07-12] MEDS: POLYETHYLENE GLYCOL (HEALTHYLAX) 3350 17 GM PACKET PO SCH ×2 (09:47→21:28)
[2021-07-12] MEDS: OFEV 100 MG PO SCH ×2 (09:48→22:00)
[2021-07-12] MEDS: CLOPIDOGREL BISULFATE 75 MG TABLET (FP) PO SCH (09:48)
[2021-07-12] MEDS: ASPIRIN 81 MG CHEWABLE TABLETS PO SCH (09:49)
[2021-07-12] MEDS: PANTOPRAZOLE SODIUM 40 MG VIAL IVPUSH SCH (10:05)
[2021-07-12] MEDS: ALBUTEROL SO4 2.5/IPRATROPIUM 0.5 INH SOL 3 ML VIAL.NEB. NEB SCH ×3 (13:21→20:07)
[2021-07-12] MEDS: ATORVASTATIN CA 80 MG TABLET (FP) PO SCH (21:27)
[2021-07-12] MEDS: MELATONIN 5 MG TABLETS PO PRN (21:27)
[2021-07-12] MEDS: CHLORHEXIDINE GLUCONATE 4% CLEANSER FOR DECOLONIZATION TP SCH (21:28)
[2021-07-12] MEDS: INSULIN (LEVEMIR) 100 UNITS/ML UNITS SQ SCH (21:47)
[2021-07-13] MEDS ORDERED: DEXTROSE 5%-WATER - 50 ML IVPB ONE ×3 (01:17→16:23)
[2021-07-13] MEDS ORDERED: PIPERACILLIN/TAZOBACTAM 3.375 GM VIAL IVPB ONE ×3 (01:17→16:23)
[2021-07-13] MEDS: PIPERACILLIN/TAZOB 3.375 GM 3.375 GM in DEXTROSE 5%-WATER - 50 ML IVPB SCH ×3 (01:34→17:34)
[2021-07-13] MEDS ORDERED: ACETAMINOPHEN 1000 MG/100 ML BAG IVPB PRN (01:35)
[2021-07-13] MEDS: methylPREDNISolone NA SUCC 40 MG/1 ML VIAL IVPUSH SCH ×3 (01:54→19:39)
[2021-07-13] MEDS: DOCUSATE SODIUM 100 MG CAPSULE (FP) PO SCH ×3 (06:09→21:43)
[2021-07-13] MEDS: INSULIN SLIDING SCALE (NOVOLOG) 1 VIAL SQ SCH ×4 (06:40→22:01)
[2021-07-13] MEDS: NIFEdipine E.R. 30 MG TABLET PO SCH (06:45)
[2021-07-13 07:37] LABS: BASO % 0.1 % (0-2.0); EOS % 0.1 % (0-4.5); HEMATOCRIT 32.2 % (32.4-45.2); HEMOGLOBIN 10.2 GM/dL (10.7-15.3); LYMPH % 6.7 % (8-40); MCH 28.1 pg (25.7-33.7); MCHC 31.6 g/dl (32.0-36.0); MEAN CELL VOLUME 88.9 fl (80-96); MEAN PLT VOLUME 8.7 fl (7.5-11.1); MONO % 3.7 % (3.8-10.2); NEUT % 89.4 % (42.8-82.8); PLATELET COUNT 645 10^3/uL (134-434); RBC 3.62 M/mm3 (3.60-5.2); RDW 15.3 % (11.6-15.6); WHITE BLOOD COUNT 16.4 K/mm3 (4.0-10.0)
[2021-07-13] MEDS: ATOVAQUONE 750 MG/5 ML (UNIT-DOSE PACKAGING) PO SCH (08:00)
[2021-07-13] MEDS: ALBUTEROL SO4 2.5/IPRATROPIUM 0.5 INH SOL 3 ML VIAL.NEB. NEB SCH ×4 (08:00→20:37)
[2021-07-13 08:07] LABS: ALBUMIN 2.9 g/dl (3.4-5.0); CALCIUM 9.6 mg/dL (8.5-10.1); MAGNESIUM 1.5 mg/dL (1.8-2.4)
[2021-07-13 08:08] LABS: BLOOD UREA NITROGEN 18.8 mg/dL (7-18)
[2021-07-13 08:10] LABS: CREATININE 0.6 mg/dL (0.55-1.3)
[2021-07-13 08:12] LABS: BILIRUBIN,TOTAL 0.5 mg/dL (0.2-1); TOT PROT 6.4 g/dl (6.4-8.2)
[2021-07-13 08:32] LABS: INR 1.03 (0.83-1.09); PROTHROMBIN TIME (PATIENT) 11.9 SEC (9.7-13.0)
[2021-07-13 08:33] LABS: ACTIVATED PTT 30.3 SECONDS (25.2-36.5)
[2021-07-13] MEDS: CLOPIDOGREL BISULFATE 75 MG TABLET (FP) PO SCH (10:05)
[2021-07-13] MEDS: ENOXAPARIN NA (PORCINE) 40 MG/0.4 ML DISP.SYRIN SQ SCH (10:05)
[2021-07-13] MEDS: ASPIRIN 81 MG CHEWABLE TABLETS PO SCH (10:05)
[2021-07-13] MEDS: PRAZOSIN HCL 1 MG CAPSULE PO SCH ×2 (10:06→21:46)
[2021-07-13] MEDS ORDERED: MAGNESIUM SULF 50% (8.12 MEQ/2 ML-1 GM VIAL) IVPB ONE (10:06)
[2021-07-13] MEDS: PANTOPRAZOLE SODIUM 40 MG VIAL IVPUSH SCH (10:06)
[2021-07-13] MEDS: POLYETHYLENE GLYCOL (HEALTHYLAX) 3350 17 GM PACKET PO SCH ×2 (10:07→21:43)
[2021-07-13] MEDS: OFEV 100 MG PO SCH ×2 (10:08→21:47)
[2021-07-13] MEDS: SODIUM ZIRCONIUM CYCLOSILICATE (LOKELMA) 5 GM PACKET PO SCH ×2 (11:34→21:43)
[2021-07-13 17:26] LABS: BLOOD UREA NITROGEN 21.5 mg/dL (7-18); CALCIUM 9.1 mg/dL (8.5-10.1)
[2021-07-13 17:30] LABS: CREATININE 0.7 mg/dL (0.55-1.3)
[2021-07-13] MEDS: ATORVASTATIN CA 80 MG TABLET (FP) PO SCH (21:43)
[2021-07-13] MEDS: CHLORHEXIDINE GLUCONATE 4% CLEANSER FOR DECOLONIZATION TP SCH (21:46)
[2021-07-13] MEDS: INSULIN (LEVEMIR) 100 UNITS/ML UNITS SQ SCH (22:02)
[2021-07-14] MEDS ORDERED: PIPERACILLIN/TAZOBACTAM 3.375 GM VIAL IVPB ONE ×3 (01:00→19:22)
[2021-07-14] MEDS ORDERED: DEXTROSE 5%-WATER - 50 ML IVPB ONE ×3 (01:01→19:22)
[2021-07-14] MEDS: PIPERACILLIN/TAZOB 3.375 GM 3.375 GM in DEXTROSE 5%-WATER - 50 ML IVPB SCH ×3 (01:21→19:24)
[2021-07-14] MEDS: ONDANSETRON 8 MG TABLET (FP) PO PRN (01:39)
[2021-07-14] MEDS ORDERED: MAG HYDROX/AL HYDROX/SIMETH 30 ML UNIT-DOSE CUP PO ONE (02:13)
[2021-07-14] MEDS: methylPREDNISolone NA SUCC 40 MG/1 ML VIAL IVPUSH SCH ×3 (02:46→19:24)
[2021-07-14] MEDS: DOCUSATE SODIUM 100 MG CAPSULE (FP) PO SCH ×3 (06:23→22:18)
[2021-07-14] MEDS: INSULIN SLIDING SCALE (NOVOLOG) 1 VIAL SQ SCH ×4 (06:35→22:17)
[2021-07-14] MEDS: NIFEdipine E.R. 30 MG TABLET PO SCH (06:50)
[2021-07-14 07:28] LABS: HEMATOCRIT 33.7 % (32.4-45.2); HEMOGLOBIN 10.9 GM/dL (10.7-15.3); MCH 28.5 pg (25.7-33.7); MCHC 32.3 g/dl (32.0-36.0); MEAN CELL VOLUME 88.3 fl (80-96); MEAN PLT VOLUME 8.7 fl (7.5-11.1); PLATELET COUNT 731 10^3/uL (134-434); RBC 3.82 M/mm3 (3.60-5.2); RDW 15.9 % (11.6-15.6); WHITE BLOOD COUNT 23.6 K/mm3 (4.0-10.0)
[2021-07-14 07:57] LABS: ALBUMIN 3.1 g/dl (3.4-5.0)
[2021-07-14 07:58] LABS: CALCIUM 9.7 mg/dL (8.5-10.1)
[2021-07-14 07:59] LABS: MAGNESIUM 1.7 mg/dL (1.8-2.4)
[2021-07-14 08:01] LABS: CREATININE 0.6 mg/dL (0.55-1.3)
[2021-07-14 08:02] LABS: BILIRUBIN,TOTAL 0.7 mg/dL (0.2-1); TOT PROT 6.8 g/dl (6.4-8.2)
[2021-07-14] MEDS ORDERED: MAGNESIUM 1GM/D5W - 1 GM/100 ML IVPB IVPB ONE (08:20)
[2021-07-14] MEDS ORDERED: SODIUM ZIRCONIUM CYCLOSILICATE (LOKELMA) 5 GM PACKET PO ONE (08:22)
[2021-07-14] MEDS: ALBUTEROL SO4 2.5/IPRATROPIUM 0.5 INH SOL 3 ML VIAL.NEB. NEB SCH ×4 (08:29→21:24)
[2021-07-14 09:35] LABS: ANISOCYTOSIS 1+; MACROCYTOSIS 0
[2021-07-14] MEDS: PANTOPRAZOLE 40 MG TABLET PO SCH (10:02)
[2021-07-14] MEDS: ASPIRIN 81 MG CHEWABLE TABLETS PO SCH (10:02)
[2021-07-14] MEDS: ENOXAPARIN NA (PORCINE) 40 MG/0.4 ML DISP.SYRIN SQ SCH (10:05)
[2021-07-14] MEDS: POLYETHYLENE GLYCOL (HEALTHYLAX) 3350 17 GM PACKET PO SCH ×2 (10:05→22:18)
[2021-07-14] MEDS: ATOVAQUONE 750 MG/5 ML (UNIT-DOSE PACKAGING) PO SCH (10:06)
[2021-07-14] MEDS: CLOPIDOGREL BISULFATE 75 MG TABLET (FP) PO SCH (10:06)
[2021-07-14] MEDS: PRAZOSIN HCL 1 MG CAPSULE PO SCH ×2 (10:07→22:19)
[2021-07-14] MEDS: OFEV 100 MG PO SCH ×2 (10:08→22:20)
[2021-07-14] MEDS ORDERED: MAGNESIUM OXIDE 400 MG TABLET (FP) PO ONE (11:11)
[2021-07-14] MEDS: NYSTATIN 500,000 UNITS/5 ML SUSPENSION PO SCH (19:24)
[2021-07-14] MEDS: ATORVASTATIN CA 80 MG TABLET (FP) PO SCH (22:17)
[2021-07-14] MEDS: INSULIN (LEVEMIR) 100 UNITS/ML UNITS SQ SCH (22:18)
[2021-07-14] MEDS: SODIUM ZIRCONIUM CYCLOSILICATE (LOKELMA) 5 GM PACKET PO SCH (22:18)
[2021-07-14] MEDS: CHLORHEXIDINE GLUCONATE 4% CLEANSER FOR DECOLONIZATION TP SCH (22:18)
[2021-07-15] MEDS: NYSTATIN 500,000 UNITS/5 ML SUSPENSION PO SCH ×6 (00:50→23:24)
[2021-07-15] MEDS ORDERED: PIPERACILLIN/TAZOBACTAM 3.375 GM VIAL IVPB ONE ×3 (01:43→15:04)
[2021-07-15] MEDS ORDERED: DEXTROSE 5%-WATER - 50 ML IVPB ONE ×3 (01:44→15:04)
[2021-07-15] MEDS: PIPERACILLIN/TAZOB 3.375 GM 3.375 GM in DEXTROSE 5%-WATER - 50 ML IVPB SCH ×3 (01:49→17:31)
[2021-07-15] MEDS: methylPREDNISolone NA SUCC 40 MG/1 ML VIAL IVPUSH SCH ×3 (04:22→19:32)
[2021-07-15] MEDS: INSULIN SLIDING SCALE (NOVOLOG) 1 VIAL SQ SCH ×4 (06:29→21:55)
[2021-07-15] MEDS: DOCUSATE SODIUM 100 MG CAPSULE (FP) PO SCH ×3 (06:29→21:55)
[2021-07-15] MEDS: NIFEdipine E.R. 30 MG TABLET PO SCH (06:30)
[2021-07-15] MEDS: ALBUTEROL SO4 2.5/IPRATROPIUM 0.5 INH SOL 3 ML VIAL.NEB. NEB SCH ×4 (07:30→20:22)
[2021-07-15 07:32] LABS: HEMATOCRIT 35.3 % (32.4-45.2); MCH 27.9 pg (25.7-33.7); MCHC 31.3 g/dl (32.0-36.0); MEAN CELL VOLUME 89.3 fl (80-96); MEAN PLT VOLUME 8.6 fl (7.5-11.1); PLATELET COUNT 764 10^3/uL (134-434); RBC 3.95 M/mm3 (3.60-5.2); RDW 16.2 % (11.6-15.6)
[2021-07-15 07:50] LABS: CALCIUM 9.6 mg/dL (8.5-10.1)
[2021-07-15 07:51] LABS: ALBUMIN 3.1 g/dl (3.4-5.0); BLOOD UREA NITROGEN 24.1 mg/dL (7-18); MAGNESIUM 1.9 mg/dL (1.8-2.4)
[2021-07-15 07:54] LABS: CREATININE 0.7 mg/dL (0.55-1.3)
[2021-07-15 07:55] LABS: BILIRUBIN,TOTAL 0.7 mg/dL (0.2-1)
[2021-07-15 08:52] LABS: ANISOCYTOSIS 0; HELMET CELLS 0; HOWELL-JOLLY BODIES 0; MACROCYTOSIS 0; OVALOCYTE 0; ROULEAU 0; SICKELED CELLS 0; TARGET CELLS 0; TEAR DROP CELLS 0; TOXIC GRANULATION 0
[2021-07-15] MEDS: INSULIN (LEVEMIR) 100 UNITS/ML UNITS SQ SCH ×2 (09:10→21:55)
[2021-07-15] MEDS: POLYETHYLENE GLYCOL (HEALTHYLAX) 3350 17 GM PACKET PO SCH ×2 (09:44→21:55)
[2021-07-15] MEDS: ASPIRIN 81 MG CHEWABLE TABLETS PO SCH (09:52)
[2021-07-15] MEDS: PANTOPRAZOLE 40 MG TABLET PO SCH (09:52)
[2021-07-15] MEDS: ENOXAPARIN NA (PORCINE) 40 MG/0.4 ML DISP.SYRIN SQ SCH (09:52)
[2021-07-15] MEDS: SODIUM ZIRCONIUM CYCLOSILICATE (LOKELMA) 5 GM PACKET PO SCH (09:53)
[2021-07-15] MEDS: CLOPIDOGREL BISULFATE 75 MG TABLET (FP) PO SCH (09:53)
[2021-07-15] MEDS: PRAZOSIN HCL 1 MG CAPSULE PO SCH ×2 (09:55→21:55)
[2021-07-15] MEDS: ATOVAQUONE 750 MG/5 ML (UNIT-DOSE PACKAGING) PO SCH (09:55)
[2021-07-15] MEDS: OFEV 100 MG PO SCH (09:56)
[2021-07-15] MEDS: ONDANSETRON 8 MG TABLET (FP) PO PRN (17:31)
[2021-07-15] MEDS ORDERED: PROCHLORPERAZINE INJECTION 10 MG/2 ML VIAL IVPB PRN (20:15)
[2021-07-15] MEDS ORDERED: SENNOSIDES 8.6MG TABLET (FP) PO PRN (20:15)
[2021-07-15] MEDS ORDERED: ONDANSETRON 4 MG TABLET PO PRN (20:15)
[2021-07-15] MEDS: ATORVASTATIN CA 80 MG TABLET (FP) PO SCH (21:55)
[2021-07-15 22:12] LABS: BLOOD UREA NITROGEN 34.3 mg/dL (7-18); CALCIUM 9.5 mg/dL (8.5-10.1)
[2021-07-15 22:16] LABS: CREATININE 0.6 mg/dL (0.55-1.3)
[2021-07-15] MEDS: AMBRISENTAN 5 MG PO SCH (22:50)
[2021-07-15] MEDS: NINTEDANIB PO SCH (22:50)
[2021-07-16] MEDS: SODIUM ZIRCONIUM CYCLOSILICATE (LOKELMA) 5 GM PACKET PO SCH ×2 (00:50→13:59)
[2021-07-16] MEDS ORDERED: PIPERACILLIN/TAZOBACTAM 3.375 GM VIAL IVPB ONE ×3 (01:07→17:03)
[2021-07-16] MEDS ORDERED: DEXTROSE 5%-WATER - 50 ML IVPB ONE ×3 (01:07→17:03)
[2021-07-16] MEDS: PIPERACILLIN/TAZOB 3.375 GM 3.375 GM in DEXTROSE 5%-WATER - 50 ML IVPB SCH ×3 (01:27→17:20)
[2021-07-16] MEDS: methylPREDNISolone NA SUCC 40 MG/1 ML VIAL IVPUSH SCH ×3 (02:49→17:19)
[2021-07-16] MEDS: DOCUSATE SODIUM 100 MG CAPSULE (FP) PO SCH ×3 (05:16→22:52)
[2021-07-16] MEDS: NYSTATIN 500,000 UNITS/5 ML SUSPENSION PO SCH ×5 (05:16→23:30)
[2021-07-16] MEDS: NIFEdipine E.R. 30 MG TABLET PO SCH (06:01)
[2021-07-16] MEDS: INSULIN (LEVEMIR) 100 UNITS/ML UNITS SQ SCH ×2 (06:05→22:51)
[2021-07-16] MEDS: INSULIN SLIDING SCALE (NOVOLOG) 1 VIAL SQ SCH ×4 (06:06→22:50)
[2021-07-16 06:41] LABS: HEMOGLOBIN 10.1 GM/dL (10.7-15.3); MCH 28.1 pg (25.7-33.7); MCHC 31.5 g/dl (32.0-36.0); MEAN CELL VOLUME 89.2 fl (80-96); MEAN PLT VOLUME 8.5 fl (7.5-11.1); PLATELET COUNT 638 10^3/uL (134-434); RBC 3.59 M/mm3 (3.60-5.2); RDW 16.1 % (11.6-15.6); WHITE BLOOD COUNT 23.9 K/mm3 (4.0-10.0)
[2021-07-16 06:59] LABS: CHLORIDE 97 mmol/L (98-107); SODIUM 131 mmol/L (136-145)
[2021-07-16 07:01] LABS: ALBUMIN 2.9 g/dl (3.4-5.0); ANION GAP 8 MMOL/L (8-16); BLOOD UREA NITROGEN 28.8 mg/dL (7-18); CALCIUM 8.8 mg/dL (8.5-10.1); CO2 25 mmol/L (21-32); GLUCOSE,RANDOM 343 mg/dL (74-106); MAGNESIUM 1.6 mg/dL (1.8-2.4)
[2021-07-16 07:05] LABS: CREATININE 0.7 mg/dL (0.55-1.3); SGOT/AST 21 U/L (15-37); SGPT/ALT 44 U/L (13-61)
[2021-07-16 07:06] LABS: BILIRUBIN,TOTAL 0.4 mg/dL (0.2-1)
[2021-07-16 07:07] LABS: ALK PHOS 64 U/L (45-117); TOT PROT 6.2 g/dl (6.4-8.2)
[2021-07-16] MEDS: ALBUTEROL SO4 2.5/IPRATROPIUM 0.5 INH SOL 3 ML VIAL.NEB. NEB SCH ×4 (07:35→20:06)
[2021-07-16] MEDS: ATOVAQUONE 750 MG/5 ML (UNIT-DOSE PACKAGING) PO SCH (08:06)
[2021-07-16 09:36] LABS: ANISOCYTOSIS 0; MACROCYTOSIS 0
[2021-07-16] MEDS: POLYETHYLENE GLYCOL (HEALTHYLAX) 3350 17 GM PACKET PO SCH ×2 (10:20→22:52)
[2021-07-16] MEDS: PANTOPRAZOLE 40 MG TABLET PO SCH (11:23)
[2021-07-16] MEDS: ASPIRIN 81 MG CHEWABLE TABLETS PO SCH (11:24)
[2021-07-16] MEDS: CLOPIDOGREL BISULFATE 75 MG TABLET (FP) PO SCH (11:24)
[2021-07-16] MEDS: ENOXAPARIN NA (PORCINE) 40 MG/0.4 ML DISP.SYRIN SQ SCH (11:24)
[2021-07-16] MEDS: PRAZOSIN HCL 1 MG CAPSULE PO SCH ×2 (11:25→22:53)
[2021-07-16] MEDS: AMBRISENTAN 5 MG PO SCH (11:26)
[2021-07-16] MEDS: NINTEDANIB PO SCH ×2 (11:26→22:53)
[2021-07-16] MEDS ORDERED: SODIUM ZIRCONIUM CYCLOSILICATE (LOKELMA) 5 GM PACKET PO SCH (11:30)
[2021-07-16] MEDS: MELATONIN 5 MG TABLETS PO PRN (22:52)
[2021-07-16] MEDS: ATORVASTATIN CA 80 MG TABLET (FP) PO SCH (22:53)
[2021-07-16] MEDS ORDERED: traMADol HCL 50 MG TABLET PO ONE (23:15)
[2021-07-17] MEDS ORDERED: DEXTROSE 5%-WATER - 50 ML IVPB ONE ×3 (02:02→17:04)
[2021-07-17] MEDS ORDERED: PIPERACILLIN/TAZOBACTAM 3.375 GM VIAL IVPB ONE ×3 (02:02→17:03)
[2021-07-17] MEDS: PIPERACILLIN/TAZOB 3.375 GM 3.375 GM in DEXTROSE 5%-WATER - 50 ML IVPB SCH ×3 (02:25→17:11)
[2021-07-17] MEDS: methylPREDNISolone NA SUCC 40 MG/1 ML VIAL IVPUSH SCH ×3 (02:26→17:12)
[2021-07-17] MEDS: DOCUSATE SODIUM 100 MG CAPSULE (FP) PO SCH ×3 (06:26→22:11)
[2021-07-17] MEDS: NYSTATIN 500,000 UNITS/5 ML SUSPENSION PO SCH ×4 (06:27→23:03)
[2021-07-17] MEDS: INSULIN (LEVEMIR) 100 UNITS/ML UNITS SQ SCH ×2 (06:34→22:19)
[2021-07-17] MEDS: INSULIN SLIDING SCALE (NOVOLOG) 1 VIAL SQ SCH ×4 (06:34→22:19)
[2021-07-17] MEDS: NIFEdipine E.R. 30 MG TABLET PO SCH (06:35)
[2021-07-17 07:20] LABS: HEMATOCRIT 29.6 % (32.4-45.2); HEMOGLOBIN 9.6 GM/dL (10.7-15.3); MCH 28.8 pg (25.7-33.7); MCHC 32.5 g/dl (32.0-36.0); MEAN CELL VOLUME 88.5 fl (80-96); MEAN PLT VOLUME 8.5 fl (7.5-11.1); PLATELET COUNT 588 10^3/uL (134-434); RBC 3.34 M/mm3 (3.60-5.2); RDW 15.6 % (11.6-15.6); WHITE BLOOD COUNT 19.8 K/mm3 (4.0-10.0)
[2021-07-17 07:45] LABS: CHLORIDE 99 mmol/L (98-107); SODIUM 133 mmol/L (136-145)
[2021-07-17 07:54] LABS: ALBUMIN 2.7 g/dl (3.4-5.0); ANION GAP 9 MMOL/L (8-16); CALCIUM 8.5 mg/dL (8.5-10.1); CO2 25 mmol/L (21-32)
[2021-07-17 07:56] LABS: BLOOD UREA NITROGEN 25.3 mg/dL (7-18); GLUCOSE,RANDOM 235 mg/dL (74-106); MAGNESIUM 1.6 mg/dL (1.8-2.4)
[2021-07-17 07:58] LABS: CREATININE 0.6 mg/dL (0.55-1.3); SGOT/AST 22 U/L (15-37)
[2021-07-17 07:59] LABS: BILIRUBIN,TOTAL 0.4 mg/dL (0.2-1); SGPT/ALT 43 U/L (13-61)
[2021-07-17 08:00] LABS: ALK PHOS 60 U/L (45-117)
[2021-07-17] MEDS: ALBUTEROL SO4 2.5/IPRATROPIUM 0.5 INH SOL 3 ML VIAL.NEB. NEB SCH ×4 (08:11→20:30)
[2021-07-17] MEDS ORDERED: MAGNESIUM OXIDE 400 MG TABLET (FP) PO ONE (08:31)
[2021-07-17 09:32] LABS: ANISOCYTOSIS 0; MACROCYTOSIS 0; OVALOCYTE 1+
[2021-07-17] MEDS: ENOXAPARIN NA (PORCINE) 40 MG/0.4 ML DISP.SYRIN SQ SCH (09:41)
[2021-07-17] MEDS: ASPIRIN 81 MG CHEWABLE TABLETS PO SCH (09:42)
[2021-07-17] MEDS: CLOPIDOGREL BISULFATE 75 MG TABLET (FP) PO SCH (09:42)
[2021-07-17] MEDS: PANTOPRAZOLE 40 MG TABLET PO SCH (09:42)
[2021-07-17] MEDS: ATOVAQUONE 750 MG/5 ML (UNIT-DOSE PACKAGING) PO SCH (09:52)
[2021-07-17] MEDS: PRAZOSIN HCL 1 MG CAPSULE PO SCH ×2 (10:07→22:17)
[2021-07-17] MEDS: AMBRISENTAN 5 MG PO SCH (10:08)
[2021-07-17] MEDS: NINTEDANIB PO SCH ×2 (10:08→22:17)
[2021-07-17] MEDS: POLYETHYLENE GLYCOL (HEALTHYLAX) 3350 17 GM PACKET PO SCH ×2 (11:04→22:11)
[2021-07-17] MEDS ORDERED: traMADol HCL 50 MG TABLET PO ONE (20:49)
[2021-07-17] MEDS: ATORVASTATIN CA 80 MG TABLET (FP) PO SCH (22:17)
[2021-07-17] MEDS: MELATONIN 5 MG TABLETS PO PRN (22:21)
[2021-07-18] MEDS ORDERED: DEXTROSE 5%-WATER - 50 ML IVPB ONE ×3 (00:52→17:08)
[2021-07-18] MEDS ORDERED: PIPERACILLIN/TAZOBACTAM 3.375 GM VIAL IVPB ONE ×3 (00:52→17:08)
[2021-07-18] MEDS: PIPERACILLIN/TAZOB 3.375 GM 3.375 GM in DEXTROSE 5%-WATER - 50 ML IVPB SCH ×3 (01:30→17:32)
[2021-07-18] MEDS: methylPREDNISolone NA SUCC 40 MG/1 ML VIAL IVPUSH SCH ×3 (01:30→17:32)
[2021-07-18] MEDS: NYSTATIN 500,000 UNITS/5 ML SUSPENSION PO SCH ×3 (05:02→17:33)
[2021-07-18] MEDS: DOCUSATE SODIUM 100 MG CAPSULE (FP) PO SCH ×3 (05:02→21:15)
[2021-07-18] MEDS: NIFEdipine E.R. 30 MG TABLET PO SCH (06:01)
[2021-07-18] MEDS: INSULIN SLIDING SCALE (NOVOLOG) 1 VIAL SQ SCH ×4 (06:01→21:20)
[2021-07-18] MEDS: INSULIN (LEVEMIR) 100 UNITS/ML UNITS SQ SCH ×2 (06:02→21:16)
[2021-07-18] MEDS: ALBUTEROL SO4 2.5/IPRATROPIUM 0.5 INH SOL 3 ML VIAL.NEB. NEB SCH ×4 (07:34→20:16)
[2021-07-18] MEDS: ENOXAPARIN NA (PORCINE) 40 MG/0.4 ML DISP.SYRIN SQ SCH (10:33)
[2021-07-18] MEDS: ATOVAQUONE 750 MG/5 ML (UNIT-DOSE PACKAGING) PO SCH (10:34)
[2021-07-18] MEDS: PANTOPRAZOLE 40 MG TABLET PO SCH (10:34)
[2021-07-18] MEDS: CLOPIDOGREL BISULFATE 75 MG TABLET (FP) PO SCH (10:34)
[2021-07-18] MEDS: ASPIRIN 81 MG CHEWABLE TABLETS PO SCH (10:35)
[2021-07-18] MEDS: POLYETHYLENE GLYCOL (HEALTHYLAX) 3350 17 GM PACKET PO SCH ×2 (10:35→21:15)
[2021-07-18] MEDS: PRAZOSIN HCL 1 MG CAPSULE PO SCH ×2 (10:36→21:17)
[2021-07-18] MEDS: NINTEDANIB PO SCH ×2 (10:43→21:19)
[2021-07-18] MEDS: AMBRISENTAN 10 MG PO SCH (10:43)
[2021-07-18 12:47] LABS: BASO % 0.1 % (0-2.0); EOS % 0.3 % (0-4.5); LYMPH % 7.3 % (8-40); MCH 28.9 pg (25.7-33.7); MCHC 32.2 g/dl (32.0-36.0); MEAN CELL VOLUME 89.5 fl (80-96); MEAN PLT VOLUME 8.8 fl (7.5-11.1); MONO % 4.3 % (3.8-10.2); PLATELET COUNT 595 10^3/uL (134-434); RBC 3.46 M/mm3 (3.60-5.2)
[2021-07-18 13:02] LABS: CHLORIDE 97 mmol/L (98-107); SODIUM 132 mmol/L (136-145)
[2021-07-18 13:06] LABS: ALBUMIN 2.7 g/dl (3.4-5.0); BLOOD UREA NITROGEN 27.9 mg/dL (7-18)
[2021-07-18 13:07] LABS: CALCIUM 8.7 mg/dL (8.5-10.1)
[2021-07-18 13:09] LABS: BILIRUBIN,TOTAL 0.6 mg/dL (0.2-1); CREATININE 0.6 mg/dL (0.55-1.3); GLUCOSE,RANDOM 395 mg/dL (74-106); MAGNESIUM 1.5 mg/dL (1.8-2.4); SGOT/AST 20 U/L (15-37); SGPT/ALT 41 U/L (13-61)
[2021-07-18 13:10] LABS: TOT PROT 5.9 g/dl (6.4-8.2)
[2021-07-18 13:11] LABS: ALK PHOS 65 U/L (45-117)
[2021-07-18 13:41] LABS: ANION GAP 9 MMOL/L (8-16); CO2 26 mmol/L (21-32)
[2021-07-18 16:40] LABS: ANISOCYTOSIS 2+; MACROCYTOSIS 2+
[2021-07-18] MEDS ORDERED: traMADol HCL 50 MG TABLET PO ONE (20:00)
[2021-07-18] MEDS: CITALOPRAM HYDROBROMIDE 10 MG TABLET PO SCH (20:29)
[2021-07-18] MEDS: ATORVASTATIN CA 80 MG TABLET (FP) PO SCH (21:16)
[2021-07-19] MEDS: ALPRAZolam 0.25 MG TABLET PO PRN ×2 (00:05→23:19)
[2021-07-19] MEDS: NYSTATIN 500,000 UNITS/5 ML SUSPENSION PO SCH ×7 (00:07→23:19)
[2021-07-19] MEDS ORDERED: DEXTROSE 5%-WATER - 50 ML IVPB ONE ×2 (01:11→09:39)
[2021-07-19] MEDS ORDERED: PIPERACILLIN/TAZOBACTAM 3.375 GM VIAL IVPB ONE ×2 (01:11→09:39)
[2021-07-19] MEDS: methylPREDNISolone NA SUCC 40 MG/1 ML VIAL IVPUSH SCH ×3 (01:11→17:21)
[2021-07-19] MEDS: PIPERACILLIN/TAZOB 3.375 GM 3.375 GM in DEXTROSE 5%-WATER - 50 ML IVPB SCH ×2 (01:12→10:12)
[2021-07-19] MEDS: DOCUSATE SODIUM 100 MG CAPSULE (FP) PO SCH ×3 (06:39→21:33)
[2021-07-19] MEDS: INSULIN SLIDING SCALE (NOVOLOG) 1 VIAL SQ SCH ×4 (06:40→21:30)
[2021-07-19] MEDS: NIFEdipine E.R. 30 MG TABLET PO SCH (06:41)
[2021-07-19] MEDS: INSULIN (LEVEMIR) 100 UNITS/ML UNITS SQ SCH ×2 (07:56→21:31)
[2021-07-19] MEDS: ALBUTEROL SO4 2.5/IPRATROPIUM 0.5 INH SOL 3 ML VIAL.NEB. NEB SCH ×4 (08:13→20:10)
[2021-07-19] MEDS: ASPIRIN 81 MG CHEWABLE TABLETS PO SCH (09:55)
[2021-07-19] MEDS: POLYETHYLENE GLYCOL (HEALTHYLAX) 3350 17 GM PACKET PO SCH ×2 (09:55→21:34)
[2021-07-19] MEDS: PANTOPRAZOLE 40 MG TABLET PO SCH (09:55)
[2021-07-19] MEDS: ENOXAPARIN NA (PORCINE) 40 MG/0.4 ML DISP.SYRIN SQ SCH (09:55)
[2021-07-19] MEDS: CLOPIDOGREL BISULFATE 75 MG TABLET (FP) PO SCH (09:55)
[2021-07-19] MEDS: ATOVAQUONE 750 MG/5 ML (UNIT-DOSE PACKAGING) PO SCH (09:57)
[2021-07-19] MEDS: NINTEDANIB PO SCH ×2 (10:00→21:24)
[2021-07-19] MEDS: AMBRISENTAN 10 MG PO SCH (10:01)
[2021-07-19] MEDS: PRAZOSIN HCL 1 MG CAPSULE PO SCH ×2 (10:02→21:23)
[2021-07-19] MEDS: MYCOPHENOLATE MOFETIL 500 MG TABLET PO SCH ×2 (11:10→21:23)
[2021-07-19] MEDS: CITALOPRAM HYDROBROMIDE 10 MG TABLET PO SCH (20:15)
[2021-07-19] MEDS: ATORVASTATIN CA 80 MG TABLET (FP) PO SCH (21:23)
[2021-07-19] MEDS: traMADol HCL 50 MG TABLET PO PRN (21:26)
[2021-07-20] MEDS: methylPREDNISolone NA SUCC 40 MG/1 ML VIAL IVPUSH SCH ×3 (01:27→17:14)
[2021-07-20] MEDS: DOCUSATE SODIUM 100 MG CAPSULE (FP) PO SCH ×3 (05:47→21:24)
[2021-07-20] MEDS: NYSTATIN 500,000 UNITS/5 ML SUSPENSION PO SCH ×3 (05:47→17:14)
[2021-07-20] MEDS: NIFEdipine E.R. 30 MG TABLET PO SCH (05:59)
[2021-07-20] MEDS: INSULIN SLIDING SCALE (NOVOLOG) 1 VIAL SQ SCH ×4 (05:59→21:25)
[2021-07-20] MEDS: INSULIN (LEVEMIR) 100 UNITS/ML UNITS SQ SCH ×2 (07:20→21:26)
[2021-07-20] MEDS: ALBUTEROL SO4 2.5/IPRATROPIUM 0.5 INH SOL 3 ML VIAL.NEB. NEB SCH ×4 (08:00→19:57)
[2021-07-20] MEDS: ASPIRIN 81 MG CHEWABLE TABLETS PO SCH (10:04)
[2021-07-20] MEDS: PANTOPRAZOLE 40 MG TABLET PO SCH (10:04)
[2021-07-20] MEDS: CLOPIDOGREL BISULFATE 75 MG TABLET (FP) PO SCH (10:05)
[2021-07-20] MEDS: POLYETHYLENE GLYCOL (HEALTHYLAX) 3350 17 GM PACKET PO SCH ×2 (10:05→21:50)
[2021-07-20] MEDS: ATOVAQUONE 750 MG/5 ML (UNIT-DOSE PACKAGING) PO SCH (10:06)
[2021-07-20] MEDS: MYCOPHENOLATE MOFETIL 500 MG TABLET PO SCH ×2 (10:06→21:24)
[2021-07-20] MEDS: NINTEDANIB PO SCH ×2 (10:07→21:47)
[2021-07-20] MEDS: AMBRISENTAN 10 MG PO SCH (10:08)
[2021-07-20] MEDS: PRAZOSIN HCL 1 MG CAPSULE PO SCH ×2 (10:09→21:35)
[2021-07-20] MEDS: ENOXAPARIN NA (PORCINE) 40 MG/0.4 ML DISP.SYRIN SQ SCH (10:13)
[2021-07-20 13:30] LABS: INR 1.04 (0.83-1.09)
[2021-07-20 13:31] LABS: HEMATOCRIT 29.6 % (32.4-45.2); HEMOGLOBIN 9.5 GM/dL (10.7-15.3); MCH 28.7 pg (25.7-33.7); MCHC 32.1 g/dl (32.0-36.0); MEAN CELL VOLUME 89.6 fl (80-96); MEAN PLT VOLUME 8.7 fl (7.5-11.1); PLATELET COUNT 511 10^3/uL (134-434); RBC 3.31 M/mm3 (3.60-5.2); RDW 16.1 % (11.6-15.6); WHITE BLOOD COUNT 19.1 K/mm3 (4.0-10.0)
[2021-07-20 13:36] LABS: CALCIUM 8.9 mg/dL (8.5-10.1)
[2021-07-20 13:37] LABS: ALBUMIN 2.9 g/dl (3.4-5.0); MAGNESIUM 1.4 mg/dL (1.8-2.4)
[2021-07-20 13:40] LABS: CREATININE 0.6 mg/dL (0.55-1.3)
[2021-07-20 13:41] LABS: BILIRUBIN,TOTAL 0.4 mg/dL (0.2-1)
[2021-07-20 13:42] LABS: TOT PROT 5.9 g/dl (6.4-8.2)
[2021-07-20 14:46] LABS: ANISOCYTOSIS 1+; MACROCYTOSIS 0
[2021-07-20] MEDS: CITALOPRAM HYDROBROMIDE 10 MG TABLET PO SCH (20:17)
[2021-07-20] MEDS: ATORVASTATIN CA 80 MG TABLET (FP) PO SCH (21:24)
[2021-07-20] MEDS: ALPRAZolam 0.25 MG TABLET PO PRN (21:44)
[2021-07-20] MEDS: traMADol HCL 50 MG TABLET PO PRN (21:44)
[2021-07-21] MEDS: NYSTATIN 500,000 UNITS/5 ML SUSPENSION PO SCH ×4 (00:40→17:16)
[2021-07-21] MEDS: methylPREDNISolone NA SUCC 40 MG/1 ML VIAL IVPUSH SCH ×3 (01:29→17:18)
[2021-07-21] MEDS: DOCUSATE SODIUM 100 MG CAPSULE (FP) PO SCH ×3 (06:19→21:38)
[2021-07-21] MEDS: NIFEdipine E.R. 30 MG TABLET PO SCH (06:25)
[2021-07-21] MEDS: INSULIN (LEVEMIR) 100 UNITS/ML UNITS SQ SCH ×2 (06:25→21:38)
[2021-07-21] MEDS: INSULIN SLIDING SCALE (NOVOLOG) 1 VIAL SQ SCH ×4 (06:27→21:39)
[2021-07-21] MEDS: ALBUTEROL SO4 2.5/IPRATROPIUM 0.5 INH SOL 3 ML VIAL.NEB. NEB SCH ×4 (07:20→20:00)
[2021-07-21 07:22] LABS: CHLORIDE 103 mmol/L (98-107); SODIUM 136 mmol/L (136-145)
[2021-07-21 07:23] LABS: CALCIUM 8.6 mg/dL (8.5-10.1)
[2021-07-21 07:24] LABS: ALBUMIN 2.8 g/dl (3.4-5.0); ANION GAP 8 MMOL/L (8-16); CO2 25 mmol/L (21-32); GLUCOSE,RANDOM 203 mg/dL (74-106); MAGNESIUM 1.5 mg/dL (1.8-2.4)
[2021-07-21 07:27] LABS: CREATININE 0.4 mg/dL (0.55-1.3); SGOT/AST 22 U/L (15-37); SGPT/ALT 39 U/L (13-61)
[2021-07-21 07:29] LABS: BILIRUBIN,TOTAL 0.3 mg/dL (0.2-1); TOT PROT 5.5 g/dl (6.4-8.2)
[2021-07-21 07:30] LABS: ALK PHOS 53 U/L (45-117)
[2021-07-21] MEDS: CLOPIDOGREL BISULFATE 75 MG TABLET (FP) PO SCH (09:26)
[2021-07-21] MEDS: ASPIRIN 81 MG CHEWABLE TABLETS PO SCH (09:26)
[2021-07-21] MEDS: ATOVAQUONE 750 MG/5 ML (UNIT-DOSE PACKAGING) PO SCH (09:26)
[2021-07-21] MEDS: MYCOPHENOLATE MOFETIL 500 MG TABLET PO SCH ×2 (09:27→21:38)
[2021-07-21] MEDS: PRAZOSIN HCL 1 MG CAPSULE PO SCH ×2 (09:27→21:39)
[2021-07-21] MEDS: PANTOPRAZOLE 40 MG TABLET PO SCH (09:27)
[2021-07-21] MEDS: POLYETHYLENE GLYCOL (HEALTHYLAX) 3350 17 GM PACKET PO SCH ×2 (09:35→21:38)
[2021-07-21] MEDS: NINTEDANIB PO SCH ×2 (09:36→21:41)
[2021-07-21] MEDS: AMBRISENTAN 10 MG PO SCH (09:36)
[2021-07-21] MEDS: traMADol HCL 50 MG TABLET PO PRN (14:33)
[2021-07-21 20:07] VITALS: BP 129/67; TEMP 98
[2021-07-21 21:07] VITALS: PULSE 87
[2021-07-21] MEDS ORDERED: INSULIN (NOVOLOG) ASPART 100 UNITS/ML 10ML VIAL ONE (21:36)
[2021-07-21] MEDS: CITALOPRAM HYDROBROMIDE 10 MG TABLET PO SCH (21:37)
[2021-07-21] MEDS: ATORVASTATIN CA 80 MG TABLET (FP) PO SCH (21:39)
[2021-07-23 12:07] LABS: SARS-CoV-2 NAA Not Detected (Not Detected)
== END 2021-07-21 23:48 | disposition short-term general hospital (02) | DRG 280 ==
LOC: JER 22:15 → JERBED 07-05 04:20 → JICU 07-05 08:14 → J4S 07-07 21:02 → JICU 07-07 21:36 → J4W 07-15 19:47
PROVIDERS: ADMIT Hospitalist; ATTEND Nurse Practitioner Family
DX: I21.4 Non-ST elevation (NSTEMI) myocardial infarction (principal); J96.21 Acute and chronic respiratory failure with hypoxia; J18.9 Pneumonia, unspecified organism; A41.9 Sepsis, unspecified organism; J96.00 Acute respiratory failure, unspecified whether with hypoxia or hypercapnia; E87.2 Acidosis; K56.7 Ileus, unspecified; J90 Pleural effusion, not elsewhere classified; K56.609 Unspecified intestinal obstruction, unspecified as to partial versus complete obstruction; I31.3 Pericardial effusion (noninflammatory); B37.0 Candidal stomatitis; R64 Cachexia; I47.1 Supraventricular tachycardia; I73.00 Raynaud's syndrome without gangrene; M06.9 Rheumatoid arthritis, unspecified; R94.5 Abnormal results of liver function studies; Z99.81 Dependence on supplemental oxygen; E11.9 Type 2 diabetes mellitus without complications; R13.10 Dysphagia, unspecified; J84.10 Pulmonary fibrosis, unspecified; D64.9 Anemia, unspecified; E78.5 Hyperlipidemia, unspecified; G47.00 Insomnia, unspecified; I10 Essential (primary) hypertension; E83.39 Other disorders of phosphorus metabolism; I95.9 Hypotension, unspecified; E83.42 Hypomagnesemia; R54 Age-related physical debility; F41.9 Anxiety disorder, unspecified; R80.9 Proteinuria, unspecified; E87.5 Hyperkalemia; D72.829 Elevated white blood cell count, unspecified; Z68.20 Body mass index [BMI] 20.0-20.9, adult; K59.00 Constipation, unspecified
CPT/HCPCS: 36415; 36600; 71045-TC-FY; 71275-TC; 74177-TC; 80048; 80053; 80061; 81003; 82553; 82728; 82803; 82962; 83036; 83540; 83550; 83605; 83735; 83880; 84100; 84484; 85025; 85027; 85045; 85379; 85610; 85730; 86140; 87040; 87086; 87804; 87899; 93005; 93010; 93306-TC; 94010; 94640; 94660; 97116-GP; 97161-GP; 99285-25; C9803-CS; J1644; J7517; U0003; U0005

== ENCOUNTER 2021-08-08 00:43 | Inpatient (IN) | payer OTHER ==
[2021-08-08] MEDS ORDERED: ALBUTEROL SO4 2.5/IPRATROPIUM 0.5 INH SOL 3 ML VIAL.NEB. NEB ONE ×2 (01:07)
[2021-08-08 01:10] LABS: ARTERIAL BLD GAS O2 SATURATION 92.7 % (95-98); ARTERIAL BLOOD GAS BASE EXCESS -1.6 mmol/L (-2-2); ARTERIAL BLOOD GAS PO2 60.3 mmHg (80-100); ARTERIAL BLOOD GAS pH 7.458 (7.350-7.450)
[2021-08-08 01:20] LABS: BASO % 0.6 % (0-2.0); HEMATOCRIT 29.3 % (32.4-45.2); HEMOGLOBIN 9.4 GM/dL (10.7-15.3); LYMPH % 9.3 % (8-40); MCHC 32.2 g/dl (32.0-36.0); MEAN CELL VOLUME 89.9 fl (80-96); MEAN PLT VOLUME 8.4 fl (7.5-11.1); MONO % 4.1 % (3.8-10.2); PLATELET COUNT 501 10^3/uL (134-434); RBC 3.26 M/mm3 (3.60-5.2); WHITE BLOOD COUNT 17.1 K/mm3 (4.0-10.0)
[2021-08-08 01:38] LABS: CALCIUM 7.5 mg/dL (8.5-10.1)
[2021-08-08 01:39] LABS: BLOOD UREA NITROGEN 10.5 mg/dL (7-18)
[2021-08-08 01:42] LABS: CREATININE 0.5 mg/dL (0.55-1.3)
[2021-08-08 01:44] LABS: BILIRUBIN,TOTAL 0.5 mg/dL (0.2-1); TOT PROT 6.2 g/dl (6.4-8.2)
[2021-08-08 01:47] LABS: N-TERMINAL BNP 2399.6 pg/ml (5-125)
[2021-08-08 01:53] LABS: LACTIC ACID 3.2 mmol/L (0.4-2.0)
[2021-08-08] MEDS ORDERED: FUROSEMIDE 40 MG/4 ML INJECTABLE VIAL IVPUSH ONE (02:52)
[2021-08-08] MEDS ORDERED: PIPERACILLIN/TAZOB 4.5 GM 4.5 GM in DEXTROSE 5%-WATER 100 ML IVPB ONE (02:53)
[2021-08-08] MEDS ORDERED: VANCOMYCIN 1,000 MG in DEXTROSE 5%-WATER - 250 ML IVPB ONE (02:53)
[2021-08-08] MEDS ORDERED: PIPERACILLIN/TAZOB 4.5 GM 4.5 GM/100 ML BAG IVPB ONE ×2 (03:10→11:19)
[2021-08-08] MEDS ORDERED: VANCOMYCIN 1 GRAM (PRE-DOCKED) 1,000 MG/250 ML BAG IVPB ONE ×2 (03:11→11:19)
[2021-08-08] MEDS ORDERED: VANCOMYCIN 750 MG in DEXTROSE 5%-WATER - 150 ML IVPB SCH (05:15)
[2021-08-08] MEDS ORDERED: NIFEdipine E.R. 30 MG TABLET ONE (06:27)
[2021-08-08] MEDS: INSULIN SLIDING SCALE (NOVOLOG) 1 VIAL SQ SCH ×4 (06:30→21:50)
[2021-08-08] MEDS: NIFEdipine E.R. 30 MG TABLET PO SCH (06:31)
[2021-08-08 07:31] LABS: HEMATOCRIT 30.5 % (32.4-45.2); HEMOGLOBIN 9.7 GM/dL (10.7-15.3); MCH 28.8 pg (25.7-33.7); MCHC 31.8 g/dl (32.0-36.0); MEAN CELL VOLUME 90.5 fl (80-96); MEAN PLT VOLUME 8.4 fl (7.5-11.1); PLATELET COUNT 387 10^3/uL (134-434); RBC 3.37 M/mm3 (3.60-5.2); RDW 18.1 % (11.6-15.6); WHITE BLOOD COUNT 16.9 K/mm3 (4.0-10.0)
[2021-08-08 08:22] LABS: ALBUMIN 2.9 g/dl (3.4-5.0); BILIRUBIN,TOTAL 0.6 mg/dL (0.2-1); BLOOD UREA NITROGEN 11.4 mg/dL (7-18); CALCIUM 7.1 mg/dL (8.5-10.1); CREATININE 0.5 mg/dL (0.55-1.3); MAGNESIUM 0.6 mg/dL (1.8-2.4); TOT PROT 5.8 g/dl (6.4-8.2)
[2021-08-08 08:24] LABS: EPI CELLS 7 /uL (0-25.1); HYALINE CASTS 1 /uL (0-3.1); PH,URINE 5.5 (5.0-8.0); URINE APPEARANCE CLEAR; URINE BACTERIA 6 /uL (0-1359); URINE BILIRUBIN NEGATIVE (NEGATIVE); URINE COLOR YELLOW; URINE GLUCOSE (UA) NEGATIVE (NEGATIVE); URINE KETONE NEGATIVE (NEGATIVE); URINE LEUK ESTERASE TRACE (NEGATIVE); URINE NITRITE NEGATIVE (NEGATIVE); URINE PROTEIN NEGATIVE (NEGATIVE); URINE RBC 4 /uL (0-23.9); URINE UROBILINOGEN 0.2 mg/dL (0.2-1.0); URINE WBC 38 /uL (0-25.8)
[2021-08-08] MEDS ORDERED: PIPERACILLIN/TAZOB 4.5 GM 4.5 GM in DEXTROSE 5%-WATER 100 ML IVPB SCH (09:00)
[2021-08-08 09:26] LABS: ANISOCYTOSIS 2+; MACROCYTOSIS 0
[2021-08-08] MEDS ORDERED: PATIENT'S OWN MEDICATION (NON-FORMULARY) (Meloxicam [Meloxicam] 15 MG Tablet) PO SCH (10:00)
[2021-08-08] MEDS: INSULIN (LEVEMIR) 100 UNITS/ML UNITS SQ SCH ×2 (11:17→21:49)
[2021-08-08] MEDS: PIPERACILLIN/TAZOB 4.5 GM 4.5 GM in DEXTROSE 5%-WATER 100 ML IVPB SCH ×3 (11:26→21:38)
[2021-08-08] MEDS ORDERED: ENOXAPARIN NA (PORCINE) 40 MG/0.4 ML DISP.SYRIN SQ ONE (11:29)
[2021-08-08] MEDS ORDERED: ASPIRIN 81 MG CHEWABLE TABLETS ONE (11:29)
[2021-08-08] MEDS ORDERED: POTASSIUM CHLORIDE ORAL LIQUID 20 MEQ/15 ML ONE (11:29)
[2021-08-08] MEDS ORDERED: CITALOPRAM HYDROBROMIDE 10 MG TABLET ONE (11:29)
[2021-08-08] MEDS ORDERED: FUROSEMIDE 40 MG/4 ML INJECTABLE VIAL ONE (11:30)
[2021-08-08] MEDS ORDERED: methylPREDNISolone NA SUCC 40 MG/1 ML VIAL ONE (11:30)
[2021-08-08] MEDS: FUROSEMIDE 40 MG/4 ML INJECTABLE VIAL IVPUSH SCH (11:38)
[2021-08-08] MEDS: ENOXAPARIN NA (PORCINE) 40 MG/0.4 ML DISP.SYRIN SQ SCH (11:38)
[2021-08-08] MEDS: methylPREDNISolone NA SUCC 40 MG/1 ML VIAL IVPUSH SCH ×2 (11:38→18:41)
[2021-08-08] MEDS: ASPIRIN 81 MG CHEWABLE TABLETS PO SCH (12:00)
[2021-08-08] MEDS: PRAZOSIN HCL 1 MG CAPSULE PO SCH ×2 (12:00→22:16)
[2021-08-08] MEDS: ATOVAQUONE 750 MG/5 ML (UNIT-DOSE PACKAGING) PO SCH (12:00)
[2021-08-08] MEDS: CITALOPRAM HYDROBROMIDE 10 MG TABLET PO SCH (12:00)
[2021-08-08] MEDS: VANCOMYCIN 750 MG in DEXTROSE 5%-WATER - 150 ML IVPB SCH ×2 (12:10→18:16)
[2021-08-08] MEDS: ALBUTEROL SO4 2.5/IPRATROPIUM 0.5 INH SOL 3 ML VIAL.NEB. NEB SCH ×2 (15:47→20:10)
[2021-08-08] MEDS ORDERED: PIPERACILLIN/TAZOBACTAM 4.5 GM VIAL IVPB ONE ×2 (15:47→20:50)
[2021-08-08] MEDS ORDERED: DEXTROSE 5%-WATER 100 ML IVPB ONE ×2 (15:47→20:50)
[2021-08-08] MEDS: POTASSIUM CHLORIDE ORAL LIQUID 20 MEQ/15 ML PO SCH ×2 (16:45→18:02)
[2021-08-08] MEDS: AMBRISENTAN 10 MG PO SCH (20:34)
[2021-08-08] MEDS: CYCLOBENZAPRINE HCL 10 MG TABLET (FP) PO SCH (21:39)
[2021-08-08] MEDS: OFEV PO SCH (21:41)
[2021-08-08] MEDS: ATORVASTATIN CA 80 MG TABLET (FP) PO SCH (21:45)
[2021-08-08] MEDS ORDERED: ATORVASTATIN CA 10 MG TABLET (FP) PO SCH (22:00)
[2021-08-08] MEDS ORDERED: AMBRISENTAN 5 MG PO SCH (22:00)
[2021-08-09] MEDS ORDERED: VANCOMYCIN 750 MG in DEXTROSE 5%-WATER - 150 ML IVPB SCH
[2021-08-09] MEDS ORDERED: MAGNESIUM SULFATE IN WATER 2 GM/50 ML IVPB IVPB ONE (00:43)
[2021-08-09 01:27] LABS: BLOOD UREA NITROGEN 18.3 mg/dL (7-18); MAGNESIUM 0.7 mg/dL (1.8-2.4)
[2021-08-09] MEDS ORDERED: PIPERACILLIN/TAZOBACTAM 4.5 GM VIAL IVPB ONE (01:29)
[2021-08-09 01:30] LABS: CREATININE 0.8 mg/dL (0.55-1.3); PHOSPHOROUS 3.5 mg/dL (2.5-4.9)
[2021-08-09] MEDS ORDERED: DEXTROSE 5%-WATER 100 ML IVPB ONE (01:30)
[2021-08-09] MEDS: methylPREDNISolone NA SUCC 40 MG/1 ML VIAL IVPUSH SCH ×3 (01:33→18:16)
[2021-08-09] MEDS: PIPERACILLIN/TAZOB 4.5 GM 4.5 GM in DEXTROSE 5%-WATER 100 ML IVPB SCH (02:44)
[2021-08-09] MEDS ORDERED: MAGNESIUM OXIDE 400 MG TABLET (FP) PO ONE (05:15)
[2021-08-09] MEDS: NIFEdipine E.R. 30 MG TABLET PO SCH (06:21)
[2021-08-09] MEDS: INSULIN SLIDING SCALE (NOVOLOG) 1 VIAL SQ SCH ×4 (06:21→21:29)
[2021-08-09 07:58] LABS: HEMATOCRIT 24.9 % (32.4-45.2); HEMOGLOBIN 8.1 GM/dL (10.7-15.3); MCH 29.1 pg (25.7-33.7); MCHC 32.4 g/dl (32.0-36.0); MEAN CELL VOLUME 89.9 fl (80-96); MEAN PLT VOLUME 8.4 fl (7.5-11.1); PLATELET COUNT 455 10^3/uL (134-434); RBC 2.77 M/mm3 (3.60-5.2); RDW 18.2 % (11.6-15.6); WHITE BLOOD COUNT 16.7 K/mm3 (4.0-10.0)
[2021-08-09 08:07] LABS: ALBUMIN 2.6 g/dl (3.4-5.0)
[2021-08-09 08:08] LABS: BLOOD UREA NITROGEN 18.8 mg/dL (7-18)
[2021-08-09 08:11] LABS: CREATININE 0.6 mg/dL (0.55-1.3); MAGNESIUM 1.4 mg/dL (1.8-2.4)
[2021-08-09 08:12] LABS: BILIRUBIN,TOTAL 0.6 mg/dL (0.2-1); TOT PROT 5.5 g/dl (6.4-8.2)
[2021-08-09] MEDS ORDERED: MAGNESIUM SULF 50% (8.12 MEQ/2 ML-1 GM VIAL) IVPB ONE (09:17)
[2021-08-09 09:40] LABS: ANISOCYTOSIS 1+; MACROCYTOSIS 0; OVALOCYTE 1+; PLATELET ESTIMATE INCREASED
[2021-08-09] MEDS: ENOXAPARIN NA (PORCINE) 40 MG/0.4 ML DISP.SYRIN SQ SCH (10:07)
[2021-08-09] MEDS: ALBUTEROL SO4 2.5/IPRATROPIUM 0.5 INH SOL 3 ML VIAL.NEB. NEB SCH ×4 (10:07→20:37)
[2021-08-09] MEDS: ASPIRIN 81 MG CHEWABLE TABLETS PO SCH (10:08)
[2021-08-09] MEDS: FUROSEMIDE 40 MG/4 ML INJECTABLE VIAL IVPUSH SCH (10:09)
[2021-08-09] MEDS: OFEV PO SCH ×2 (10:09→21:22)
[2021-08-09] MEDS: AMBRISENTAN 10 MG PO SCH (10:10)
[2021-08-09] MEDS: PRAZOSIN HCL 1 MG CAPSULE PO SCH ×2 (10:53→22:25)
[2021-08-09] MEDS: ATOVAQUONE 750 MG/5 ML (UNIT-DOSE PACKAGING) PO SCH (10:53)
[2021-08-09] MEDS: INSULIN (LEVEMIR) 100 UNITS/ML UNITS SQ SCH ×2 (12:10→21:28)
[2021-08-09] MEDS: CITALOPRAM HYDROBROMIDE 10 MG TABLET PO SCH (12:22)
[2021-08-09] MEDS ORDERED: PIPERACILLIN/TAZOBACTAM 3.375 GM VIAL IVPB ONE (15:12)
[2021-08-09] MEDS ORDERED: DEXTROSE 5%-WATER - 50 ML IVPB ONE (15:14)
[2021-08-09] MEDS: PIPERACILLIN/TAZOB 3.375 GM 3.375 GM in DEXTROSE 5%-WATER - 50 ML IVPB SCH ×2 (15:15→18:11)
[2021-08-09] MEDS: ATORVASTATIN CA 80 MG TABLET (FP) PO SCH (21:23)
[2021-08-09] MEDS: CYCLOBENZAPRINE HCL 10 MG TABLET (FP) PO SCH (21:24)
[2021-08-09] MEDS ORDERED: MAGNESIUM OXIDE 400 MG TABLET (FP) PO SCH (22:00)
[2021-08-10] MEDS ORDERED: PIPERACILLIN/TAZOBACTAM 3.375 GM VIAL IVPB ONE ×4 (00:23→17:03)
[2021-08-10] MEDS ORDERED: DEXTROSE 5%-WATER - 50 ML IVPB ONE ×3 (00:27→17:03)
[2021-08-10] MEDS: methylPREDNISolone NA SUCC 40 MG/1 ML VIAL IVPUSH SCH ×3 (02:42→17:06)
[2021-08-10] MEDS: PIPERACILLIN/TAZOB 3.375 GM 3.375 GM in DEXTROSE 5%-WATER - 50 ML IVPB SCH ×3 (02:43→17:07)
[2021-08-10] MEDS: NIFEdipine E.R. 30 MG TABLET PO SCH (06:09)
[2021-08-10] MEDS: INSULIN SLIDING SCALE (NOVOLOG) 1 VIAL SQ SCH ×4 (06:11→22:15)
[2021-08-10 07:31] LABS: BASO % 0.1 % (0-2.0); HEMATOCRIT 26.1 % (32.4-45.2); HEMOGLOBIN 8.3 GM/dL (10.7-15.3); LYMPH % 4.8 % (8-40); MCH 28.3 pg (25.7-33.7); MCHC 31.8 g/dl (32.0-36.0); MEAN CELL VOLUME 88.8 fl (80-96); MEAN PLT VOLUME 8.5 fl (7.5-11.1); MONO % 3.2 % (3.8-10.2); NEUT % 91.9 % (42.8-82.8); PLATELET COUNT 500 10^3/uL (134-434); RBC 2.94 M/mm3 (3.60-5.2); RDW 17.2 % (11.6-15.6); WHITE BLOOD COUNT 16.2 K/mm3 (4.0-10.0)
[2021-08-10 07:55] LABS: ALBUMIN 2.6 g/dl (3.4-5.0); BLOOD UREA NITROGEN 23.9 mg/dL (7-18); MAGNESIUM 2.1 mg/dL (1.8-2.4)
[2021-08-10 07:57] LABS: CREATININE 0.5 mg/dL (0.55-1.3)
[2021-08-10 07:58] LABS: BILIRUBIN,TOTAL 0.8 mg/dL (0.2-1); TOT PROT 5.6 g/dl (6.4-8.2)
[2021-08-10] MEDS: ALBUTEROL SO4 2.5/IPRATROPIUM 0.5 INH SOL 3 ML VIAL.NEB. NEB SCH ×4 (08:02→20:29)
[2021-08-10] MEDS ORDERED: BISACODYL 10 MG SUPP.RECT PR PRN (09:05)
[2021-08-10 09:10] LABS: CALCIUM 8.1 mg/dL (8.5-10.1)
[2021-08-10] MEDS ORDERED: BISACODYL 10 MG SUPP.RECT PR ONE (09:15)
[2021-08-10] MEDS: FUROSEMIDE 40 MG/4 ML INJECTABLE VIAL IVPUSH SCH (09:59)
[2021-08-10 10:22] LABS: ANISOCYTOSIS 2+; MACROCYTOSIS 0; OVALOCYTE 2+; TEAR DROP CELLS 1+
[2021-08-10] MEDS: ASPIRIN 81 MG CHEWABLE TABLETS PO SCH (11:14)
[2021-08-10] MEDS: ENOXAPARIN NA (PORCINE) 40 MG/0.4 ML DISP.SYRIN SQ SCH (11:14)
[2021-08-10] MEDS: CITALOPRAM HYDROBROMIDE 10 MG TABLET PO SCH (11:14)
[2021-08-10] MEDS: ATOVAQUONE 750 MG/5 ML (UNIT-DOSE PACKAGING) PO SCH (11:14)
[2021-08-10] MEDS: PRAZOSIN HCL 1 MG CAPSULE PO SCH ×2 (11:15→22:28)
[2021-08-10] MEDS: OFEV PO SCH ×2 (11:15→22:02)
[2021-08-10] MEDS: AMBRISENTAN 10 MG PO SCH (11:16)
[2021-08-10] MEDS: INSULIN (LEVEMIR) 100 UNITS/ML UNITS SQ SCH ×2 (11:54→22:16)
[2021-08-10] MEDS: MELOXICAM 15MG TABLET PO SCH (17:07)
[2021-08-10] MEDS: LORazepam 2 MG/ML SDV VIAL IVPUSH PRN (18:09)
[2021-08-10] MEDS: ATORVASTATIN CA 80 MG TABLET (FP) PO SCH (22:02)
[2021-08-10] MEDS: CYCLOBENZAPRINE HCL 10 MG TABLET (FP) PO SCH (22:02)
[2021-08-11] MEDS ORDERED: DEXTROSE 5%-WATER - 50 ML IVPB ONE ×3 (00:16→17:32)
[2021-08-11] MEDS ORDERED: PIPERACILLIN/TAZOBACTAM 3.375 GM VIAL IVPB ONE ×3 (00:16→17:32)
[2021-08-11] MEDS: PIPERACILLIN/TAZOB 3.375 GM 3.375 GM in DEXTROSE 5%-WATER - 50 ML IVPB SCH ×3 (01:08→21:03)
[2021-08-11] MEDS: methylPREDNISolone NA SUCC 40 MG/1 ML VIAL IVPUSH SCH ×3 (01:08→21:03)
[2021-08-11] MEDS: LORazepam 2 MG/ML SDV VIAL IVPUSH PRN (04:04)
[2021-08-11] MEDS ORDERED: DEXTROSE 50%-WATER 25 GM/50 ML DISP.SYRIN IVPUSH ONE (05:33)
[2021-08-11] MEDS: INSULIN SLIDING SCALE (NOVOLOG) 1 VIAL SQ SCH ×4 (06:06→22:35)
[2021-08-11] MEDS: NIFEdipine E.R. 30 MG TABLET PO SCH (06:34)
[2021-08-11] MEDS: ALBUTEROL SO4 2.5/IPRATROPIUM 0.5 INH SOL 3 ML VIAL.NEB. NEB SCH ×4 (07:49→20:08)
[2021-08-11 07:58] LABS: ALBUMIN 2.6 g/dl (3.4-5.0); BLOOD UREA NITROGEN 25.1 mg/dL (7-18); MAGNESIUM 1.8 mg/dL (1.8-2.4)
[2021-08-11 08:01] LABS: CREATININE 0.5 mg/dL (0.55-1.3)
[2021-08-11 08:03] LABS: BILIRUBIN,TOTAL 0.9 mg/dL (0.2-1); TOT PROT 5.4 g/dl (6.4-8.2)
[2021-08-11] MEDS ORDERED: CLOPIDOGREL BISULFATE 75 MG TABLET (FP) PO SCH (10:00)
[2021-08-11] MEDS ORDERED: MAGNESIUM OXIDE 400 MG TABLET (FP) PO SCH (10:00)
[2021-08-11] MEDS: ENOXAPARIN NA (PORCINE) 40 MG/0.4 ML DISP.SYRIN SQ SCH (10:34)
[2021-08-11] MEDS: ASPIRIN 81 MG CHEWABLE TABLETS PO SCH (10:36)
[2021-08-11] MEDS: MELOXICAM 15MG TABLET PO SCH (10:41)
[2021-08-11] MEDS: ATOVAQUONE 750 MG/5 ML (UNIT-DOSE PACKAGING) PO SCH (10:43)
[2021-08-11] MEDS: CITALOPRAM HYDROBROMIDE 10 MG TABLET PO SCH (10:46)
[2021-08-11] MEDS: PRAZOSIN HCL 1 MG CAPSULE PO SCH (10:47)
[2021-08-11] MEDS: OFEV PO SCH (10:49)
[2021-08-11] MEDS: AMBRISENTAN 10 MG PO SCH (10:50)
[2021-08-11] MEDS: INSULIN (LEVEMIR) 100 UNITS/ML UNITS SQ SCH ×2 (10:51→22:45)
[2021-08-11] MEDS: FUROSEMIDE 40 MG/4 ML INJECTABLE VIAL IVPUSH SCH (11:30)
[2021-08-11] MEDS ORDERED: MAGNESIUM OXIDE 400 MG TABLET (FP) PO ONE (12:36)
[2021-08-11] MEDS ORDERED: LORazepam 2 MG/ML SDV VIAL IVPUSH PRN ×2 (12:57→18:01)
[2021-08-11 13:58] LABS: BASO % 0.1 % (0-2.0); HEMATOCRIT 26.4 % (32.4-45.2); HEMOGLOBIN 8.5 GM/dL (10.7-15.3); LYMPH % 4.4 % (8-40); MCH 28.4 pg (25.7-33.7); MCHC 32.2 g/dl (32.0-36.0); MEAN CELL VOLUME 88.1 fl (80-96); MEAN PLT VOLUME 8.1 fl (7.5-11.1); NEUT % 91.5 % (42.8-82.8); PLATELET COUNT 545 10^3/uL (134-434); RBC 2.99 M/mm3 (3.60-5.2); RDW 17.3 % (11.6-15.6); WHITE BLOOD COUNT 18.7 K/mm3 (4.0-10.0)
[2021-08-11 14:51] LABS: ANISOCYTOSIS 2+; MACROCYTOSIS 0
[2021-08-11] MEDS ORDERED: RAPID SEQUENCE INTUBATION KIT NR ONE (18:12)
[2021-08-11] MEDS ORDERED: PROPOFOL 1,000,000 MCG/100 ML VIAL ONE (18:36)
[2021-08-11] MEDS ORDERED: PROPOFOL 1,000,000 MCG/100 ML VIAL IVPB SCH ×2 (18:45→19:30)
[2021-08-11] MEDS ORDERED: FENTANYL NS IVPB 500 MCG/100 ML BAG IVPB ONE (18:47)
[2021-08-11] MEDS ORDERED: VECURONIUM BROMIDE 50 MG/50 ML VIAL IVPUSH ONE (19:18)
[2021-08-11] MEDS ORDERED: VECURONIUM BROMIDE 20 MG/20 ML VIAL ONE (19:20)
[2021-08-11 19:22] LABS: ARTERIAL BLD GAS O2 SATURATION 81.7 % (95-98); ARTERIAL BLOOD GAS BASE EXCESS -10.2 mmol/L (-2-2); ARTERIAL BLOOD GAS PO2 55.2 mmHg (80-100)
[2021-08-11 19:23] LABS: ALLENS TEST POSITIVE
[2021-08-11 19:24] LABS: VENT RATE 15
[2021-08-11] MEDS ORDERED: DEXMEDETOMIDINE IN 0.9 % NACL 400 MCG/100 ML VIAL IVPB SCH (19:30)
[2021-08-11] MEDS ORDERED: MIDAZOLAM IN 0.9 % SOD.CHLORID 100 MG/100 ML PLAST..BAG IVPB SCH (19:30)
[2021-08-11 19:35] LABS: HEMATOCRIT 28.2 % (32.4-45.2); HEMOGLOBIN 8.7 GM/dL (10.7-15.3); MCH 28.4 pg (25.7-33.7); MCHC 30.9 g/dl (32.0-36.0); MEAN PLT VOLUME 8.6 fl (7.5-11.1); PLATELET COUNT 679 10^3/uL (134-434); RBC 3.07 M/mm3 (3.60-5.2); RDW 17.9 % (11.6-15.6)
[2021-08-11 19:39] LABS: WHITE BLOOD COUNT 30.2 K/mm3 (4.0-10.0)
[2021-08-11 19:55] LABS: CALCIUM 8.6 mg/dL (8.5-10.1)
[2021-08-11 19:56] LABS: ALBUMIN 2.6 g/dl (3.4-5.0); BLOOD UREA NITROGEN 26.6 mg/dL (7-18)
[2021-08-11 19:59] LABS: CREATININE 0.7 mg/dL (0.55-1.3)
[2021-08-11 20:01] LABS: BILIRUBIN,TOTAL 1.2 mg/dL (0.2-1); TOT PROT 5.8 g/dl (6.4-8.2)
[2021-08-11 20:07] LABS: ANISOCYTOSIS 0; MACROCYTOSIS 0
[2021-08-11] MEDS ORDERED: DOXAZOSIN MESYLATE 1 MG TABLET PO SCH (22:00)
[2021-08-11] MEDS: CHLORHEXIDINE GLUCONATE 4% CLEANSER FOR DECOLONIZATION TP SCH (22:35)
[2021-08-11] MEDS: MUPIROCIN 2% TOPICAL OINTMENT FOR DECOLONIZATION NS SCH (22:43)
[2021-08-11] MEDS: CYCLOBENZAPRINE HCL 10 MG TABLET (FP) GT SCH (22:43)
[2021-08-11] MEDS: ATORVASTATIN CA 80 MG TABLET (FP) GT SCH (22:43)
[2021-08-11 23:03] LABS: LACTIC ACID 3.5 mmol/L (0.4-2.0)
[2021-08-11] MEDS: FENTANYL NS IVPB 500 MCG/100 ML BAG IVPB SCH (23:20)
[2021-08-12] MEDS ORDERED: DOPAMINE 400 MG/D5W - 400,000 MCG/250 ML INFUS.BAG IVPB ONE (00:09)
[2021-08-12] MEDS ORDERED: MIDAZOLAM IN 0.9 % SOD.CHLORID 1 MG/1 ML PLAST..BAG ONE (01:25)
[2021-08-12] MEDS: MIDAZOLAM IN 0.9 % SOD.CHLORID 100 MG/100 ML PLAST..BAG IVPB SCH (01:36)
[2021-08-12 01:44] LABS: ARTERIAL BLOOD GAS BASE EXCESS -3.5 mmol/L (-2-2); ARTERIAL BLOOD GAS PO2 100.6 mmHg (80-100)
[2021-08-12 01:46] LABS: ALLENS TEST POSITIVE; VENT MODE A/C; VENT RATE 15
[2021-08-12 01:50] LABS: ARTERIAL BLOOD GAS pH 6.962 (7.350-7.450)
[2021-08-12] MEDS ORDERED: SODIUM BICARBONATE 8.4% - 150 MEQ in DEXTROSE 5%-WATER - 950 ML IVPB SCH (02:15)
[2021-08-12] MEDS ORDERED: PIPERACILLIN/TAZOBACTAM 3.375 GM VIAL IVPB ONE ×3 (02:15→18:10)
[2021-08-12] MEDS ORDERED: DEXTROSE 5%-WATER - 50 ML IVPB ONE ×3 (02:15→18:11)
[2021-08-12] MEDS: PIPERACILLIN/TAZOB 3.375 GM 3.375 GM in DEXTROSE 5%-WATER - 50 ML IVPB SCH ×3 (02:19→18:14)
[2021-08-12] MEDS: methylPREDNISolone NA SUCC 40 MG/1 ML VIAL IVPUSH SCH ×3 (02:19→18:14)
[2021-08-12] MEDS ORDERED: LACTATED RINGERS SOLUTION 1000 ML INFUS.BAG IV ONE ×2 (03:31→03:55)
[2021-08-12] MEDS ORDERED: FUROSEMIDE 40 MG/4 ML INJECTABLE VIAL IVPUSH ONE (04:39)
[2021-08-12 05:25] LABS: ARTERIAL BLD GAS O2 SATURATION 81.6 % (95-98); ARTERIAL BLOOD GAS BASE EXCESS -0.5 mmol/L (-2-2); ARTERIAL BLOOD GAS PO2 53.8 mmHg (80-100); ARTERIAL BLOOD GAS pH 7.248 (7.350-7.450)
[2021-08-12 05:31] LABS: ALLENS TEST POSITIVE; VENT MODE A/C
[2021-08-12 05:32] LABS: VENT RATE 20
[2021-08-12] MEDS: NIFEdipine E.R. 30 MG TABLET PO SCH (06:55)
[2021-08-12] MEDS: INSULIN SLIDING SCALE (NOVOLOG) 1 VIAL SQ SCH ×4 (06:55→22:03)
[2021-08-12 07:21] LABS: HEMATOCRIT 22.6 % (32.4-45.2); MCH 28.3 pg (25.7-33.7); MCHC 31.2 g/dl (32.0-36.0); MEAN CELL VOLUME 90.9 fl (80-96); MEAN PLT VOLUME 8.5 fl (7.5-11.1); PLATELET COUNT 451 10^3/uL (134-434); RBC 2.49 M/mm3 (3.60-5.2); RDW 17.8 % (11.6-15.6); WHITE BLOOD COUNT 22.3 K/mm3 (4.0-10.0)
[2021-08-12 07:24] LABS: ALBUMIN 2.3 g/dl (3.4-5.0); CALCIUM 7.9 mg/dL (8.5-10.1); MAGNESIUM 2.2 mg/dL (1.8-2.4)
[2021-08-12 07:29] LABS: BILIRUBIN,TOTAL 2.2 mg/dL (0.2-1); TOT PROT 5.2 g/dl (6.4-8.2)
[2021-08-12] MEDS ORDERED: BISACODYL 10 MG SUPP.RECT PR PRN (07:43)
[2021-08-12] MEDS ORDERED: LORazepam 2 MG/ML SDV VIAL IVPUSH PRN (07:43)
[2021-08-12 08:03] LABS: CREATININE 1.3 mg/dL (0.55-1.3)
[2021-08-12] MEDS: ALBUTEROL SO4 2.5/IPRATROPIUM 0.5 INH SOL 3 ML VIAL.NEB. NEB SCH ×4 (08:41→20:30)
[2021-08-12] MEDS: FENTANYL NS IVPB 500 MCG/100 ML BAG IVPB SCH (08:52)
[2021-08-12 08:57] LABS: ANISOCYTOSIS 2+; MACROCYTOSIS 1+
[2021-08-12] MEDS: FUROSEMIDE 40 MG/4 ML INJECTABLE VIAL IVPUSH SCH (09:06)
[2021-08-12] MEDS: ENOXAPARIN NA (PORCINE) 40 MG/0.4 ML DISP.SYRIN SQ SCH (09:13)
[2021-08-12] MEDS ORDERED: KETAMINE HCL 200 MG/20 ML VIAL IVPB ONE (09:54)
[2021-08-12] MEDS ORDERED: MAGNESIUM OXIDE 400 MG TABLET (FP) PO SCH ×2 (10:00)
[2021-08-12] MEDS ORDERED: INSULIN (LEVEMIR) 100 UNITS/ML UNITS SQ SCH (10:00)
[2021-08-12] MEDS ORDERED: DEXMEDETOMIDINE IN 0.9 % NACL 400 MCG/100 ML VIAL IVPB SCH (10:15)
[2021-08-12] MEDS: ASPIRIN 81 MG CHEWABLE TABLETS GT SCH (10:38)
[2021-08-12] MEDS: CITALOPRAM HYDROBROMIDE 10 MG TABLET GT SCH (10:39)
[2021-08-12] MEDS: ATOVAQUONE 750 MG/5 ML (UNIT-DOSE PACKAGING) GT SCH (10:41)
[2021-08-12] MEDS: CLOPIDOGREL BISULFATE 75 MG TABLET (FP) GT SCH (10:41)
[2021-08-12] MEDS ORDERED: KETAMINE HCL 200 MG/20 ML VIAL IVPB SCH (10:45)
[2021-08-12 11:36] LABS: ARTERIAL BLD GAS O2 SATURATION 99.2 % (95-98); ARTERIAL BLOOD GAS BASE EXCESS 3.2 mmol/L (-2-2); ARTERIAL BLOOD GAS PO2 176.7 mmHg (80-100); ARTERIAL BLOOD GAS pH 7.406 (7.350-7.450)
[2021-08-12 11:37] LABS: ALLENS TEST POSITIVE
[2021-08-12 11:38] LABS: VENT MODE AC; VENT RATE 28
[2021-08-12] MEDS ORDERED: LACTATED RINGERS SOLUTION 1,000 ML/1,000 ML INFUS.BAG IV SCH (12:00)
[2021-08-12] MEDS: KETAMINE HCL 1,000 MG in SODIUM CHLORIDE 480 ML IV SCH ×2 (12:27→21:00)
[2021-08-12] MEDS: DOXAZOSIN MESYLATE 1 MG TABLET GT SCH (12:38)
[2021-08-12] MEDS ORDERED: VASOPRESSIN 20 UNITS/ML VIAL IV ONE (13:17)
[2021-08-12] MEDS: MUPIROCIN 2% TOPICAL OINTMENT FOR DECOLONIZATION NS SCH ×2 (13:27→21:54)
[2021-08-12] MEDS: VASOPRESSIN 40 UNITS/100 ML BAG IV SCH (13:28)
[2021-08-12] MEDS: ATORVASTATIN CA 80 MG TABLET (FP) GT SCH (21:53)
[2021-08-12] MEDS: CYCLOBENZAPRINE HCL 10 MG TABLET (FP) GT SCH (21:54)
[2021-08-12] MEDS: CHLORHEXIDINE GLUCONATE 4% CLEANSER FOR DECOLONIZATION TP SCH (21:54)
[2021-08-13] MEDS ORDERED: PIPERACILLIN/TAZOBACTAM 3.375 GM VIAL IVPB ONE (02:14)
[2021-08-13] MEDS ORDERED: DEXTROSE 5%-WATER - 50 ML IVPB ONE ×2 (02:14→18:18)
[2021-08-13] MEDS: methylPREDNISolone NA SUCC 40 MG/1 ML VIAL IVPUSH SCH ×3 (02:19→21:00)
[2021-08-13] MEDS: PIPERACILLIN/TAZOB 3.375 GM 3.375 GM in DEXTROSE 5%-WATER - 50 ML IVPB SCH (02:19)
[2021-08-13] MEDS: MIDAZOLAM IN 0.9 % SOD.CHLORID 100 MG/100 ML PLAST..BAG IVPB SCH ×2 (03:00→21:00)
[2021-08-13] MEDS: VASOPRESSIN 40 UNITS/100 ML BAG IV SCH (04:00)
[2021-08-13] MEDS: NIFEdipine E.R. 30 MG TABLET PO SCH (06:35)
[2021-08-13] MEDS: INSULIN SLIDING SCALE (NOVOLOG) 1 VIAL SQ SCH ×4 (06:38→21:40)
[2021-08-13 07:54] LABS: MCHC 31.3 g/dl (32.0-36.0); MEAN CELL VOLUME 89.7 fl (80-96); MEAN PLT VOLUME 9.1 fl (7.5-11.1); PLATELET COUNT 402 10^3/uL (134-434); RBC 2.24 M/mm3 (3.60-5.2); RDW 17.1 % (11.6-15.6); WHITE BLOOD COUNT 13.9 K/mm3 (4.0-10.0)
[2021-08-13 08:06] LABS: BILIRUBIN,DIRECT 1.8 mg/dL (0.0-0.2)
[2021-08-13 08:11] LABS: HEMOGLOBIN 6.3 GM/dL (10.7-15.3)
[2021-08-13 08:13] LABS: CALCIUM 7.4 mg/dL (8.5-10.1)
[2021-08-13 08:14] LABS: ALBUMIN 2.1 g/dl (3.4-5.0); BLOOD UREA NITROGEN 60.8 mg/dL (7-18); MAGNESIUM 2.2 mg/dL (1.8-2.4)
[2021-08-13 08:15] LABS: CREATININE 1.7 mg/dL (0.55-1.3)
[2021-08-13] MEDS: ALBUTEROL SO4 2.5/IPRATROPIUM 0.5 INH SOL 3 ML VIAL.NEB. NEB SCH ×4 (08:15→20:00)
[2021-08-13 08:17] LABS: BILIRUBIN,TOTAL 1.1 mg/dL (0.2-1); TOT PROT 4.8 g/dl (6.4-8.2)
[2021-08-13 09:09] LABS: ANISOCYTOSIS 3+; MACROCYTOSIS 0
[2021-08-13] MEDS: ENOXAPARIN NA (PORCINE) 40 MG/0.4 ML DISP.SYRIN SQ SCH (09:15)
[2021-08-13] MEDS: FUROSEMIDE 40 MG/4 ML INJECTABLE VIAL IVPUSH SCH (09:15)
[2021-08-13] MEDS: CLOPIDOGREL BISULFATE 75 MG TABLET (FP) GT SCH (09:18)
[2021-08-13] MEDS: ASPIRIN 81 MG CHEWABLE TABLETS GT SCH (09:19)
[2021-08-13] MEDS: MUPIROCIN 2% TOPICAL OINTMENT FOR DECOLONIZATION NS SCH ×2 (09:19→21:34)
[2021-08-13] MEDS: ATOVAQUONE 750 MG/5 ML (UNIT-DOSE PACKAGING) GT SCH (09:21)
[2021-08-13] MEDS: CITALOPRAM HYDROBROMIDE 10 MG TABLET GT SCH (09:22)
[2021-08-13] MEDS: DOXAZOSIN MESYLATE 1 MG TABLET GT SCH (09:32)
[2021-08-13] MEDS: KETAMINE HCL 1,000 MG in SODIUM CHLORIDE 480 ML IV SCH (11:00)
[2021-08-13] MEDS: PANTOPRAZOLE SODIUM 40 MG VIAL IVPUSH SCH (11:14)
[2021-08-13 13:14] LABS: BILIRUBIN,DIRECT 0.7 mg/dL (0.0-0.2)
[2021-08-13 13:16] LABS: BILIRUBIN,TOTAL 0.9 mg/dL (0.2-1); TOT PROT 4.8 g/dl (6.4-8.2)
[2021-08-13] MEDS: THIAMINE HCL 200 MG/2 ML VIAL IVPB SCH (17:20)
[2021-08-13] MEDS ORDERED: PIPERACILLIN/TAZOBACTAM 2.25 GM VIAL IVPB ONE (18:18)
[2021-08-13] MEDS: PIPERACILLIN/TAZOB 2.25 GM 2.25 GM in DEXTROSE 5%-WATER - 50 ML IVPB SCH (18:21)
[2021-08-13] MEDS: FENTANYL NS IVPB 500 MCG/100 ML BAG IVPB SCH ×2 (20:00)
[2021-08-13] MEDS: ATORVASTATIN CA 80 MG TABLET (FP) GT SCH (21:26)
[2021-08-13] MEDS: CYCLOBENZAPRINE HCL 10 MG TABLET (FP) GT SCH (21:26)
[2021-08-13] MEDS: CHLORHEXIDINE GLUCONATE 4% CLEANSER FOR DECOLONIZATION TP SCH (21:30)
[2021-08-13 22:12] LABS: BASO % 0.3 % (0-2.0); HEMATOCRIT 24.2 % (32.4-45.2); HEMOGLOBIN 7.8 GM/dL (10.7-15.3); LYMPH % 8.3 % (8-40); MEAN CELL VOLUME 87.6 fl (80-96); MEAN PLT VOLUME 8.6 fl (7.5-11.1); MONO % 6.4 % (3.8-10.2); PLATELET COUNT 436 10^3/uL (134-434); RBC 2.76 M/mm3 (3.60-5.2); RDW 16.8 % (11.6-15.6); WHITE BLOOD COUNT 17.9 K/mm3 (4.0-10.0)
[2021-08-14] MEDS: FENTANYL NS IVPB 500 MCG/100 ML BAG IVPB SCH ×3 (01:03→23:59)
[2021-08-14] MEDS ORDERED: DEXTROSE 5%-WATER - 50 ML IVPB ONE ×3 (01:04→18:03)
[2021-08-14] MEDS ORDERED: PIPERACILLIN/TAZOBACTAM 2.25 GM VIAL IVPB ONE ×3 (01:04→18:03)
[2021-08-14] MEDS: PIPERACILLIN/TAZOB 2.25 GM 2.25 GM in DEXTROSE 5%-WATER - 50 ML IVPB SCH ×3 (01:05→18:06)
[2021-08-14] MEDS: methylPREDNISolone NA SUCC 40 MG/1 ML VIAL IVPUSH SCH ×3 (01:05→18:06)
[2021-08-14] MEDS ORDERED: fentaNYL CITRATE 250 MCG/5 ML VIAL ONE (01:40)
[2021-08-14] MEDS: MIDAZOLAM IN 0.9 % SOD.CHLORID 100 MG/100 ML PLAST..BAG IVPB SCH ×2 (06:41→23:57)
[2021-08-14] MEDS: VASOPRESSIN 40 UNITS/100 ML BAG IV SCH (06:42)
[2021-08-14] MEDS: NIFEdipine E.R. 30 MG TABLET PO SCH (06:42)
[2021-08-14] MEDS: INSULIN SLIDING SCALE (NOVOLOG) 1 VIAL SQ SCH ×4 (06:42→22:02)
[2021-08-14] MEDS: ALBUTEROL SO4 2.5/IPRATROPIUM 0.5 INH SOL 3 ML VIAL.NEB. NEB SCH ×4 (08:15→19:56)
[2021-08-14] MEDS: CITALOPRAM HYDROBROMIDE 10 MG TABLET GT SCH (09:48)
[2021-08-14] MEDS: ASPIRIN 81 MG CHEWABLE TABLETS GT SCH (09:48)
[2021-08-14] MEDS: CLOPIDOGREL BISULFATE 75 MG TABLET (FP) GT SCH (09:48)
[2021-08-14] MEDS: THIAMINE HCL 200 MG/2 ML VIAL IVPB SCH (09:49)
[2021-08-14] MEDS: PANTOPRAZOLE SODIUM 40 MG VIAL IVPUSH SCH (09:49)
[2021-08-14] MEDS: ATOVAQUONE 750 MG/5 ML (UNIT-DOSE PACKAGING) GT SCH (09:49)
[2021-08-14] MEDS: DOXAZOSIN MESYLATE 1 MG TABLET GT SCH (09:52)
[2021-08-14] MEDS: MUPIROCIN 2% TOPICAL OINTMENT FOR DECOLONIZATION NS SCH ×3 (09:53→21:53)
[2021-08-14] MEDS: ENOXAPARIN NA (PORCINE) 40 MG/0.4 ML DISP.SYRIN SQ SCH (09:53)
[2021-08-14] MEDS: PIPERACILLIN/TAZOB 3.375 GM 3.375 GM in DEXTROSE 5%-WATER - 50 ML IVPB SCH ×2 (10:42→13:44)
[2021-08-14 11:51] LABS: ALBUMIN 2.1 g/dl (3.4-5.0)
[2021-08-14 11:54] LABS: BILIRUBIN,DIRECT 0.6 mg/dL (0.0-0.2)
[2021-08-14 11:56] LABS: BILIRUBIN,TOTAL 0.9 mg/dL (0.2-1)
[2021-08-14] MEDS: KETAMINE HCL 1,000 MG in SODIUM CHLORIDE 480 ML IV SCH (13:33)
[2021-08-14] MEDS: PROPOFOL 1,000,000 MCG/100 ML VIAL IVPB SCH (13:36)
[2021-08-14] MEDS: OFEV 100 MG PO SCH ×2 (13:43→13:44)
[2021-08-14] MEDS: AMBRISENTAN 10 MG PO SCH ×2 (13:43→13:46)
[2021-08-14] MEDS ORDERED: ONDANSETRON 4 MG/2 ML VIAL IVPUSH ONE (18:27)
[2021-08-14 21:30] LABS: ALBUMIN 2.3 g/dl (3.4-5.0); BLOOD UREA NITROGEN 56.1 mg/dL (7-18)
[2021-08-14 21:33] LABS: CREATININE 1.2 mg/dL (0.55-1.3)
[2021-08-14 21:35] LABS: TOT PROT 5.3 g/dl (6.4-8.2)
[2021-08-14 21:37] LABS: CALCIUM 8.8 mg/dL (8.5-10.1)
[2021-08-14] MEDS: CYCLOBENZAPRINE HCL 10 MG TABLET (FP) GT SCH (21:53)
[2021-08-14] MEDS: CHLORHEXIDINE GLUCONATE 4% CLEANSER FOR DECOLONIZATION TP SCH (21:53)
[2021-08-14] MEDS: ATORVASTATIN CA 80 MG TABLET (FP) GT SCH (21:54)
[2021-08-14 22:45] LABS: EPI CELLS 17 /uL (0-25.1); HYALINE CASTS 1 /uL (0-3.1); URINE APPEARANCE CLEAR; URINE BACTERIA 5 /uL (0-1359); URINE BILIRUBIN NEGATIVE (NEGATIVE); URINE COLOR YELLOW; URINE GLUCOSE (UA) NEGATIVE (NEGATIVE); URINE KETONE NEGATIVE (NEGATIVE); URINE LEUK ESTERASE TRACE (NEGATIVE); URINE NITRITE NEGATIVE (NEGATIVE); URINE PROTEIN NEGATIVE (NEGATIVE); URINE UROBILINOGEN 0.2 mg/dL (0.2-1.0); URINE WBC 16 /uL (0-25.8)
[2021-08-14 22:55] LABS: URINE RBC 67 /uL (0-23.9)
[2021-08-15] MEDS: FENTANYL NS IVPB 500 MCG/100 ML BAG IVPB SCH ×3 (00:56→22:46)
[2021-08-15] MEDS ORDERED: PIPERACILLIN/TAZOBACTAM 2.25 GM VIAL IVPB ONE ×3 (01:24→17:33)
[2021-08-15] MEDS ORDERED: DEXTROSE 5%-WATER - 50 ML IVPB ONE ×3 (01:24→17:33)
[2021-08-15] MEDS: PIPERACILLIN/TAZOB 2.25 GM 2.25 GM in DEXTROSE 5%-WATER - 50 ML IVPB SCH ×3 (01:41→17:36)
[2021-08-15] MEDS: methylPREDNISolone NA SUCC 40 MG/1 ML VIAL IVPUSH SCH ×3 (01:41→17:36)
[2021-08-15] MEDS: MIDAZOLAM IN 0.9 % SOD.CHLORID 100 MG/100 ML PLAST..BAG IVPB SCH (01:42)
[2021-08-15] MEDS: PROPOFOL 1,000,000 MCG/100 ML VIAL IVPB SCH (03:38)
[2021-08-15] MEDS: VASOPRESSIN 40 UNITS/100 ML BAG IV SCH (04:45)
[2021-08-15] MEDS: INSULIN SLIDING SCALE (NOVOLOG) 1 VIAL SQ SCH ×4 (06:00→21:56)
[2021-08-15] MEDS: NIFEdipine E.R. 30 MG TABLET PO SCH (06:00)
[2021-08-15] MEDS: ALBUTEROL SO4 2.5/IPRATROPIUM 0.5 INH SOL 3 ML VIAL.NEB. NEB SCH ×4 (08:20→20:23)
[2021-08-15] MEDS: PANTOPRAZOLE SODIUM 40 MG VIAL IVPUSH SCH (10:04)
[2021-08-15] MEDS: ENOXAPARIN NA (PORCINE) 40 MG/0.4 ML DISP.SYRIN SQ SCH (10:04)
[2021-08-15] MEDS: ASPIRIN 81 MG CHEWABLE TABLETS GT SCH (10:04)
[2021-08-15] MEDS: THIAMINE HCL 200 MG/2 ML VIAL IVPB SCH (10:04)
[2021-08-15] MEDS: ATOVAQUONE 750 MG/5 ML (UNIT-DOSE PACKAGING) GT SCH (10:05)
[2021-08-15] MEDS: DOXAZOSIN MESYLATE 1 MG TABLET GT SCH (10:06)
[2021-08-15] MEDS: CITALOPRAM HYDROBROMIDE 10 MG TABLET GT SCH (10:06)
[2021-08-15] MEDS: CLOPIDOGREL BISULFATE 75 MG TABLET (FP) GT SCH (10:07)
[2021-08-15] MEDS: MUPIROCIN 2% TOPICAL OINTMENT FOR DECOLONIZATION NS SCH ×2 (10:08→21:51)
[2021-08-15 10:50] VITALS: BMI 21.4
[2021-08-15 12:34] LABS: ALBUMIN 1.9 g/dl (3.4-5.0)
[2021-08-15 12:38] LABS: BILIRUBIN,DIRECT 0.7 mg/dL (0.0-0.2)
[2021-08-15 12:40] LABS: BILIRUBIN,TOTAL 0.9 mg/dL (0.2-1); TOT PROT 4.7 g/dl (6.4-8.2)
[2021-08-15] MEDS: KETAMINE HCL 1,000 MG in SODIUM CHLORIDE 480 ML IV SCH (13:55)
[2021-08-15 16:56] LABS: BASO % 0.1 % (0-2.0); HEMATOCRIT 25.2 % (32.4-45.2); HEMOGLOBIN 7.9 GM/dL (10.7-15.3); LYMPH % 3.9 % (8-40); MCH 27.7 pg (25.7-33.7); MCHC 31.6 g/dl (32.0-36.0); MEAN CELL VOLUME 87.9 fl (80-96); MONO % 6.5 % (3.8-10.2); NEUT % 89.5 % (42.8-82.8); RBC 2.87 M/mm3 (3.60-5.2); RDW 17.6 % (11.6-15.6); WHITE BLOOD COUNT 21.1 K/mm3 (4.0-10.0)
[2021-08-15 16:57] LABS: MEAN PLT VOLUME 8.7 fl (7.5-11.1); PLATELET COUNT 396 10^3/uL (134-434)
[2021-08-15 17:35] LABS: ANISOCYTOSIS 2+; MACROCYTOSIS 0; OVALOCYTE 1+; TARGET CELLS 1+
[2021-08-15] MEDS ORDERED: ACETAMINOPHEN 1000 MG/100 ML BAG IVPB ONE (19:14)
[2021-08-15] MEDS: CHLORHEXIDINE GLUCONATE 4% CLEANSER FOR DECOLONIZATION TP SCH (21:51)
[2021-08-15] MEDS: ATORVASTATIN CA 80 MG TABLET (FP) GT SCH (21:51)
[2021-08-15] MEDS: CYCLOBENZAPRINE HCL 10 MG TABLET (FP) GT SCH (21:51)
[2021-08-15 22:03] LABS: CHLORIDE 124 mmol/L (98-107)
[2021-08-15 22:06] LABS: CALCIUM 9.4 mg/dL (8.5-10.1)
[2021-08-15 22:07] LABS: BLOOD UREA NITROGEN 46.2 mg/dL (7-18); CO2 35 mmol/L (21-32); GLUCOSE,RANDOM 221 mg/dL (74-106)
[2021-08-15 22:10] LABS: SGOT/AST 93 U/L (15-37); SGPT/ALT 546 U/L (13-61)
[2021-08-15 22:11] LABS: BILIRUBIN,TOTAL 1.1 mg/dL (0.2-1)
[2021-08-15 22:13] LABS: ALK PHOS 110 U/L (45-117)
[2021-08-15 23:04] LABS: ANION GAP 3 MMOL/L (8-16); SODIUM 162 mmol/L (136-145)
[2021-08-15] MEDS ORDERED: SODIUM CHLORIDE 0.45% 1,000 ML IV SCH (23:30)
[2021-08-16 00:51] LABS: CHLORIDE 128 mmol/L (98-107)
[2021-08-16 00:52] LABS: CALCIUM 9.4 mg/dL (8.5-10.1)
[2021-08-16 00:53] LABS: BLOOD UREA NITROGEN 46.7 mg/dL (7-18); CO2 36 mmol/L (21-32); GLUCOSE,RANDOM 187 mg/dL (74-106)
[2021-08-16 01:18] LABS: ANION GAP 2 MMOL/L (8-16); SODIUM 166 mmol/L (136-145)
[2021-08-16] MEDS ORDERED: DEXTROSE 5%-WATER - 50 ML IVPB ONE ×3 (01:18→17:54)
[2021-08-16] MEDS ORDERED: PIPERACILLIN/TAZOBACTAM 2.25 GM VIAL IVPB ONE ×3 (01:18→17:54)
[2021-08-16] MEDS: PIPERACILLIN/TAZOB 2.25 GM 2.25 GM in DEXTROSE 5%-WATER - 50 ML IVPB SCH ×3 (01:21→18:00)
[2021-08-16] MEDS: methylPREDNISolone NA SUCC 40 MG/1 ML VIAL IVPUSH SCH ×3 (01:21→18:00)
[2021-08-16] MEDS: PROPOFOL 1,000,000 MCG/100 ML VIAL IVPB SCH ×2 (02:00→15:00)
[2021-08-16] MEDS: MIDAZOLAM IN 0.9 % SOD.CHLORID 100 MG/100 ML PLAST..BAG IVPB SCH (02:30)
[2021-08-16] MEDS ORDERED: SODIUM CHLORIDE 0.45% 1,000 ML IV SCH ×2 (03:15→03:51)
[2021-08-16 03:24] LABS: BLOOD UREA NITROGEN 47.9 mg/dL (7-18); CALCIUM 9.2 mg/dL (8.5-10.1); CHLORIDE 130 mmol/L (98-107); CO2 35 mmol/L (21-32); GLUCOSE,RANDOM 200 mg/dL (74-106)
[2021-08-16 03:34] LABS: ANION GAP 3 MMOL/L (8-16); SODIUM 168 mmol/L (136-145)
[2021-08-16] MEDS ORDERED: DEXTROSE 5%-WATER - 1,000 ML IV SCH ×3 (04:00→06:26)
[2021-08-16] MEDS ORDERED: DEXTROSE 5%-WATER 500 ML PVC-FREE INFUS.BAG IV ONE (04:01)
[2021-08-16] MEDS ORDERED: DEXTROSE 5%-0.45% SALINE 1,000 ML IV SCH (04:15)
[2021-08-16] MEDS: VASOPRESSIN 40 UNITS/100 ML BAG IV SCH (04:39)
[2021-08-16] MEDS ORDERED: DESMOPRESSIN ACETATE 4 MCG/ML AMP IVPB SCH (06:21)
[2021-08-16] MEDS: NIFEdipine E.R. 30 MG TABLET PO SCH (06:43)
[2021-08-16 07:15] LABS: HEMATOCRIT 23.3 % (32.4-45.2); HEMOGLOBIN 7.2 GM/dL (10.7-15.3); MCH 27.8 pg (25.7-33.7); MCHC 30.8 g/dl (32.0-36.0); MEAN CELL VOLUME 90.4 fl (80-96); MEAN PLT VOLUME 9.6 fl (7.5-11.1); PLATELET COUNT 329 10^3/uL (134-434); RBC 2.58 M/mm3 (3.60-5.2); WHITE BLOOD COUNT 18.3 K/mm3 (4.0-10.0)
[2021-08-16 07:29] LABS: CHLORIDE 128 mmol/L (98-107)
[2021-08-16 07:33] LABS: ALBUMIN 1.7 g/dl (3.4-5.0); BLOOD UREA NITROGEN 45.2 mg/dL (7-18); CO2 33 mmol/L (21-32); GLUCOSE,RANDOM 326 mg/dL (74-106); MAGNESIUM 2.3 mg/dL (1.8-2.4)
[2021-08-16 07:36] LABS: CREATININE 0.9 mg/dL (0.55-1.3); PHOSPHOROUS 2.9 mg/dL (2.5-4.9); SGOT/AST 74 U/L (15-37); SGPT/ALT 414 U/L (13-61)
[2021-08-16 07:38] LABS: TOT PROT 4.4 g/dl (6.4-8.2)
[2021-08-16 07:39] LABS: ALK PHOS 94 U/L (45-117)
[2021-08-16] MEDS: DESMOPRESSIN ACETATE 1 MCG in SODIUM CHLORIDE 50 ML IVPB SCH ×2 (07:39→21:49)
[2021-08-16 07:40] LABS: URINE UREA NITROGEN 274 MG/DL (350-1000)
[2021-08-16 07:43] LABS: CREATININE, URINE RANDOM < 13.0 mg/dL (30-150)
[2021-08-16] MEDS: ALBUTEROL SO4 2.5/IPRATROPIUM 0.5 INH SOL 3 ML VIAL.NEB. NEB SCH ×4 (08:00→20:28)
[2021-08-16] MEDS: INSULIN SLIDING SCALE (NOVOLOG) 1 VIAL SQ SCH ×3 (08:16→10:37)
[2021-08-16 08:18] LABS: ANION GAP 5 MMOL/L (8-16); SODIUM 166 mmol/L (136-145)
[2021-08-16] MEDS: FENTANYL NS IVPB 500 MCG/100 ML BAG IVPB SCH ×2 (10:00→18:36)
[2021-08-16] MEDS ORDERED: SODIUM CHLORIDE 1,000 ML IV SCH (11:00)
[2021-08-16] MEDS: THIAMINE HCL 200 MG/2 ML VIAL IVPB SCH (11:19)
[2021-08-16] MEDS: DOXAZOSIN MESYLATE 1 MG TABLET GT SCH ×2 (11:21→11:35)
[2021-08-16] MEDS: CITALOPRAM HYDROBROMIDE 10 MG TABLET GT SCH ×2 (11:21→11:35)
[2021-08-16] MEDS: PANTOPRAZOLE SODIUM 40 MG VIAL IVPUSH SCH (11:21)
[2021-08-16] MEDS: ATOVAQUONE 750 MG/5 ML (UNIT-DOSE PACKAGING) GT SCH ×2 (11:21→11:35)
[2021-08-16] MEDS: MUPIROCIN 2% TOPICAL OINTMENT FOR DECOLONIZATION NS SCH (11:23)
[2021-08-16] MEDS: KETAMINE HCL 1,000 MG in SODIUM CHLORIDE 480 ML IV SCH (11:24)
[2021-08-16] MEDS ORDERED: INSULIN REGULAR 100 UNITS in SODIUM CHLORIDE 99 ML IVPB SCH (11:30)
[2021-08-16] MEDS: ASPIRIN 81 MG CHEWABLE TABLETS GT SCH (11:39)
[2021-08-16] MEDS: ENOXAPARIN NA (PORCINE) 40 MG/0.4 ML DISP.SYRIN SQ SCH (11:39)
[2021-08-16] MEDS: CLOPIDOGREL BISULFATE 75 MG TABLET (FP) GT SCH (11:39)
[2021-08-16] MEDS ORDERED: ACETAMINOPHEN INJECTION 100 ML IVPB ONE (15:20)
[2021-08-16 15:21] LABS: CHLORIDE 129 mmol/L (98-107)
[2021-08-16 15:22] LABS: CALCIUM 9.3 mg/dL (8.5-10.1)
[2021-08-16 15:23] LABS: BLOOD UREA NITROGEN 45.7 mg/dL (7-18); CO2 33 mmol/L (21-32); GLUCOSE,RANDOM 287 mg/dL (74-106)
[2021-08-16 15:27] LABS: ANION GAP 5 MMOL/L (8-16); SODIUM 167 mmol/L (136-145)
[2021-08-16] MEDS ORDERED: ACETAMINOPHEN 1000 MG/100 ML BAG IVPB ONE (15:30)
[2021-08-16] MEDS ORDERED: VASOPRESSIN 40 UNITS/100 ML BAG IV SCH (18:30)
[2021-08-16] MEDS ORDERED: INSULIN (NOVOLOG) ASPART 100 UNITS/ML 10ML VIAL ONE (19:02)
[2021-08-16] MEDS: CYCLOBENZAPRINE HCL 10 MG TABLET (FP) GT SCH (21:51)
[2021-08-16] MEDS: CHLORHEXIDINE GLUCONATE 4% CLEANSER FOR DECOLONIZATION TP SCH (21:51)
[2021-08-16 21:54] LABS: CHLORIDE 130 mmol/L (98-107)
[2021-08-16 21:55] LABS: CALCIUM 8.8 mg/dL (8.5-10.1)
[2021-08-16 21:56] LABS: BLOOD UREA NITROGEN 38.8 mg/dL (7-18); CO2 37 mmol/L (21-32); GLUCOSE,RANDOM 180 mg/dL (74-106)
[2021-08-16 22:09] LABS: ANION GAP 0 MMOL/L (8-16); SODIUM 167 mmol/L (136-145)
[2021-08-16 22:39] LABS: CREATININE 0.9 mg/dL (0.55-1.3)
[2021-08-17] MEDS ORDERED: PIPERACILLIN/TAZOBACTAM 2.25 GM VIAL IVPB ONE ×3 (02:18→17:10)
[2021-08-17] MEDS ORDERED: DEXTROSE 5%-WATER - 50 ML IVPB ONE ×4 (02:19→21:17)
[2021-08-17] MEDS: methylPREDNISolone NA SUCC 40 MG/1 ML VIAL IVPUSH SCH ×3 (02:25→17:55)
[2021-08-17] MEDS: PIPERACILLIN/TAZOB 2.25 GM 2.25 GM in DEXTROSE 5%-WATER - 50 ML IVPB SCH ×3 (02:25→17:56)
[2021-08-17] MEDS: FENTANYL NS IVPB 500 MCG/100 ML BAG IVPB SCH (04:17)
[2021-08-17] MEDS: MIDAZOLAM IN 0.9 % SOD.CHLORID 100 MG/100 ML PLAST..BAG IVPB SCH (04:18)
[2021-08-17] MEDS: PROPOFOL 1,000,000 MCG/100 ML VIAL IVPB SCH ×2 (04:18→22:22)
[2021-08-17] MEDS: NIFEdipine E.R. 30 MG TABLET PO SCH (06:40)
[2021-08-17] MEDS: ALBUTEROL SO4 2.5/IPRATROPIUM 0.5 INH SOL 3 ML VIAL.NEB. NEB SCH ×3 (08:34→20:15)
[2021-08-17] MEDS: PANTOPRAZOLE SODIUM 40 MG VIAL IVPUSH SCH (09:44)
[2021-08-17] MEDS: DESMOPRESSIN ACETATE 1 MCG in SODIUM CHLORIDE 50 ML IVPB SCH ×2 (09:47→22:30)
[2021-08-17] MEDS: ATOVAQUONE 750 MG/5 ML (UNIT-DOSE PACKAGING) GT SCH (09:47)
[2021-08-17] MEDS: THIAMINE HCL 200 MG/2 ML VIAL IVPB SCH (11:35)
[2021-08-17 11:58] LABS: CHLORIDE 127 mmol/L (98-107)
[2021-08-17 11:59] LABS: CALCIUM 8.8 mg/dL (8.5-10.1)
[2021-08-17 12:00] LABS: BLOOD UREA NITROGEN 41.3 mg/dL (7-18); CO2 33 mmol/L (21-32); GLUCOSE,RANDOM 329 mg/dL (74-106)
[2021-08-17 12:03] LABS: ANION GAP 6 MMOL/L (8-16); CREATININE 0.7 mg/dL (0.55-1.3); SODIUM 166 mmol/L (136-145)
[2021-08-17] MEDS: INSULIN SLIDING SCALE (NOVOLOG) 1 VIAL SQ SCH ×2 (12:50→18:00)
[2021-08-17] MEDS: VASOPRESSIN 40 UNITS/100 ML BAG IV SCH (18:01)
[2021-08-17 18:31] LABS: CHLORIDE 127 mmol/L (98-107)
[2021-08-17 18:33] LABS: CALCIUM 8.6 mg/dL (8.5-10.1)
[2021-08-17 18:34] LABS: ALBUMIN 1.7 g/dl (3.4-5.0); BLOOD UREA NITROGEN 38.8 mg/dL (7-18); CO2 34 mmol/L (21-32); GLUCOSE,RANDOM 253 mg/dL (74-106); MAGNESIUM 1.7 mg/dL (1.8-2.4)
[2021-08-17 18:36] LABS: BILIRUBIN,DIRECT 0.4 mg/dL (0.0-0.2)
[2021-08-17 18:37] LABS: CREATININE 0.6 mg/dL (0.55-1.3); SGOT/AST 42 U/L (15-37); SGPT/ALT 251 U/L (13-61)
[2021-08-17 18:38] LABS: BILIRUBIN,TOTAL 0.6 mg/dL (0.2-1)
[2021-08-17 18:39] LABS: TOT PROT 4.7 g/dl (6.4-8.2)
[2021-08-17 18:40] LABS: ALK PHOS 87 U/L (45-117)
[2021-08-17 19:32] LABS: ANION GAP 6 MMOL/L (8-16); SODIUM 166 mmol/L (136-145)
[2021-08-17] MEDS ORDERED: LABETALOL HCL 5 MG/1 ML (100MG/20 ML VIAL) IVPUSH ONE ×3 (20:58→23:57)
[2021-08-17] MEDS ORDERED: PIPERACILLIN/TAZOBACTAM 3.375 GM VIAL IVPB ONE (21:17)
[2021-08-17] MEDS: PIPERACILLIN/TAZOB 3.375 GM 3.375 GM in DEXTROSE 5%-WATER - 50 ML IVPB SCH (21:18)
[2021-08-17] MEDS: CHLORHEXIDINE GLUCONATE 4% CLEANSER FOR DECOLONIZATION TP SCH (21:19)
[2021-08-17 21:44] LABS: ARTERIAL BLD GAS O2 SATURATION 98.9 % (95-98); ARTERIAL BLOOD GAS BASE EXCESS 5.2 mmol/L (-2-2); ARTERIAL BLOOD GAS PO2 154.3 mmHg (80-100); ARTERIAL BLOOD GAS pH 7.375 (7.350-7.450)
[2021-08-17 21:45] LABS: ALLENS TEST POSITIVE
[2021-08-17 21:46] LABS: VENT MODE A/C; VENT RATE 12
[2021-08-17] MEDS ORDERED: SODIUM CHLORIDE 0.45% 1,000 ML IV SCH (22:00)
[2021-08-17] MEDS ORDERED: PIPERACILLIN/TAZOB 3.375 GM 3.375 GM in DEXTROSE 5%-WATER - 50 ML IVPB SCH (22:00)
[2021-08-17 22:31] LABS: BASO % 0.2 % (0-2.0); EOS % 0.2 % (0-4.5); HEMOGLOBIN 8.3 GM/dL (10.7-15.3); LYMPH % 2.5 % (8-40); MCH 28.1 pg (25.7-33.7); MCHC 30.9 g/dl (32.0-36.0); MEAN CELL VOLUME 90.8 fl (80-96); MEAN PLT VOLUME 9.5 fl (7.5-11.1); MONO % 4.2 % (3.8-10.2); NEUT % 92.9 % (42.8-82.8); PLATELET COUNT 365 10^3/uL (134-434); RBC 2.97 M/mm3 (3.60-5.2); RDW 18.9 % (11.6-15.6)
[2021-08-17 22:37] LABS: WHITE BLOOD COUNT 30.2 K/mm3 (4.0-10.0)
[2021-08-17 22:44] LABS: CHLORIDE 126 mmol/L (98-107)
[2021-08-17 22:47] LABS: CALCIUM 8.9 mg/dL (8.5-10.1); CO2 34 mmol/L (21-32); LIPASE 114 U/L (73-393); MAGNESIUM 1.6 mg/dL (1.8-2.4)
[2021-08-17 22:48] LABS: ALBUMIN 1.8 g/dl (3.4-5.0); BLOOD UREA NITROGEN 38.7 mg/dL (7-18); GLUCOSE,RANDOM 273 mg/dL (74-106); INR 1.03 (0.83-1.09); PROTHROMBIN TIME (PATIENT) 11.8 SEC (9.7-13.0)
[2021-08-17 22:49] LABS: AMYLASE 115 U/L (25-115)
[2021-08-17 22:50] LABS: ACTIVATED PTT 31.3 SECONDS (25.2-36.5); CREATININE 0.6 mg/dL (0.55-1.3); SGOT/AST 46 U/L (15-37); SGPT/ALT 256 U/L (13-61)
[2021-08-17 22:51] LABS: PHOSPHOROUS 3.8 mg/dL (2.5-4.9)
[2021-08-17 22:52] LABS: LDH 517 U/L (84-246); TOT PROT 5.1 g/dl (6.4-8.2)
[2021-08-17 22:53] LABS: BILIRUBIN,TOTAL 0.8 mg/dL (0.2-1)
[2021-08-17 22:54] LABS: ALK PHOS 103 U/L (45-117)
[2021-08-17 22:55] LABS: ANION GAP 7 MMOL/L (8-16); SODIUM 167 mmol/L (136-145)
[2021-08-17 23:03] LABS: ANISOCYTOSIS 2+; MACROCYTOSIS 0; OVALOCYTE 1+; TARGET CELLS 1+
[2021-08-17] MEDS: DEXTROSE 5%-WATER 500 ML INFUS.BAG IV SCH (23:26)
[2021-08-18] MEDS: NICARDIPINE 25 MG in DEXTROSE 5%-WATER - 240 ML IVPB SCH ×2 (00:05→23:18)
[2021-08-18] MEDS ORDERED: SODIUM CHLORIDE 0.45% 1,000 ML IV SCH ×2 (00:17→10:48)
[2021-08-18] MEDS: FENTANYL NS IVPB 500 MCG/100 ML BAG IVPB SCH ×2 (02:27→03:19)
[2021-08-18] MEDS ORDERED: PIPERACILLIN/TAZOBACTAM 3.375 GM VIAL IVPB ONE ×4 (02:46→21:08)
[2021-08-18] MEDS ORDERED: DEXTROSE 5%-WATER - 50 ML IVPB ONE ×4 (02:47→21:08)
[2021-08-18] MEDS: methylPREDNISolone NA SUCC 40 MG/1 ML VIAL IVPUSH SCH ×3 (02:55→17:57)
[2021-08-18 03:11] LABS: ARTERIAL BLD GAS O2 SATURATION 98.9 % (95-98); ARTERIAL BLOOD GAS BASE EXCESS 4.2 mmol/L (-2-2); ARTERIAL BLOOD GAS PO2 139.2 mmHg (80-100); ARTERIAL BLOOD GAS pH 7.463 (7.350-7.450)
[2021-08-18 03:12] LABS: ALLENS TEST POSITIVE
[2021-08-18 03:13] LABS: VENT MODE A/C; VENT RATE 12
[2021-08-18] MEDS: DEXTROSE 5%-WATER 500 ML INFUS.BAG IV SCH ×2 (03:21→06:18)
[2021-08-18 04:12] LABS: HEMATOCRIT 26.1 % (32.4-45.2); HEMOGLOBIN 7.8 GM/dL (10.7-15.3); MCH 27.6 pg (25.7-33.7); MCHC 29.8 g/dl (32.0-36.0); MEAN CELL VOLUME 92.8 fl (80-96); MEAN PLT VOLUME 10.2 fl (7.5-11.1); PLATELET COUNT 336 10^3/uL (134-434); RBC 2.82 M/mm3 (3.60-5.2); RDW 19.2 % (11.6-15.6)
[2021-08-18 04:15] LABS: WHITE BLOOD COUNT 32.4 K/mm3 (4.0-10.0)
[2021-08-18 04:22] LABS: INR 1.03 (0.83-1.09); PROTHROMBIN TIME (PATIENT) 11.9 SEC (9.7-13.0)
[2021-08-18 04:24] LABS: ACTIVATED PTT 29.7 SECONDS (25.2-36.5)
[2021-08-18] MEDS: PIPERACILLIN/TAZOB 3.375 GM 3.375 GM in DEXTROSE 5%-WATER - 50 ML IVPB SCH ×4 (04:29→21:38)
[2021-08-18 04:32] LABS: CO2 30 mmol/L (21-32)
[2021-08-18 04:33] LABS: CALCIUM 8.3 mg/dL (8.5-10.1); LIPASE 107 U/L (73-393); MAGNESIUM 1.3 mg/dL (1.8-2.4)
[2021-08-18 04:34] LABS: ALBUMIN 1.6 g/dl (3.4-5.0); BLOOD UREA NITROGEN 34.3 mg/dL (7-18)
[2021-08-18 04:35] LABS: AMYLASE 90 U/L (25-115)
[2021-08-18 04:36] LABS: CREATININE 0.6 mg/dL (0.55-1.3); SGOT/AST 38 U/L (15-37); SGPT/ALT 206 U/L (13-61)
[2021-08-18 04:37] LABS: PHOSPHOROUS 3.4 mg/dL (2.5-4.9); TOT PROT 4.5 g/dl (6.4-8.2)
[2021-08-18 04:39] LABS: BILIRUBIN,TOTAL 0.7 mg/dL (0.2-1)
[2021-08-18 04:40] LABS: ALK PHOS 96 U/L (45-117); LDH 449 U/L (84-246)
[2021-08-18 04:54] LABS: ANION GAP 9 MMOL/L (8-16); CHLORIDE 119 mmol/L (98-107); GLUCOSE,RANDOM 499 mg/dL (74-106); SODIUM 158 mmol/L (136-145)
[2021-08-18 06:16] LABS: ANISOCYTOSIS 1+; MACROCYTOSIS 1+; OVALOCYTE 1+; ROULEAU 1+
[2021-08-18] MEDS: INSULIN SLIDING SCALE (NOVOLOG) 1 VIAL SQ SCH ×2 (06:18)
[2021-08-18 07:24] LABS: ALBUMIN 1.7 g/dl (3.4-5.0)
[2021-08-18 07:27] LABS: BILIRUBIN,DIRECT 0.4 mg/dL (0.0-0.2)
[2021-08-18 07:29] LABS: TOT PROT 4.7 g/dl (6.4-8.2)
[2021-08-18] MEDS ORDERED: INSULIN REGULAR HUMAN 100 UNITS/ML *VIAL* (FOR IVP) IVPUSH ONE (08:03)
[2021-08-18] MEDS: ALBUTEROL SO4 2.5/IPRATROPIUM 0.5 INH SOL 3 ML VIAL.NEB. NEB SCH ×4 (08:05→20:01)
[2021-08-18 09:15] LABS: EPI CELLS 7 /uL (0-25.1); HYALINE CASTS 2 /uL (0-3.1); URINE APPEARANCE CLEAR; URINE BACTERIA 6 /uL (0-1359); URINE BILIRUBIN NEGATIVE (NEGATIVE); URINE COLOR ORANGE; URINE GLUCOSE (UA) 3+ (NEGATIVE); URINE KETONE NEGATIVE (NEGATIVE); URINE LEUK ESTERASE TRACE (NEGATIVE); URINE NITRITE NEGATIVE (NEGATIVE); URINE PROTEIN NEGATIVE (NEGATIVE); URINE RBC 1733 /uL (0-23.9); URINE UROBILINOGEN 0.2 mg/dL (0.2-1.0); URINE WBC 133 /uL (0-25.8)
[2021-08-18 09:43] LABS: ARTERIAL BLD GAS O2 SATURATION 98.8 % (95-98); ARTERIAL BLOOD GAS BASE EXCESS 7.3 mmol/L (-2-2); ARTERIAL BLOOD GAS PO2 140.2 mmHg (80-100); ARTERIAL BLOOD GAS pH 7.434 (7.350-7.450)
[2021-08-18 09:44] LABS: ALLENS TEST POSITIVE
[2021-08-18 09:45] LABS: VENT MODE A/C; VENT RATE 12
[2021-08-18 10:15] LABS: HEMATOCRIT 28.9 % (32.4-45.2); MCH 28.2 pg (25.7-33.7); MCHC 31.1 g/dl (32.0-36.0); MEAN CELL VOLUME 90.9 fl (80-96); MEAN PLT VOLUME 10.3 fl (7.5-11.1); PLATELET COUNT 413 10^3/uL (134-434); RBC 3.18 M/mm3 (3.60-5.2)
[2021-08-18 10:17] LABS: ACTIVATED PTT 32.6 SECONDS (25.2-36.5); INR 1.04 (0.83-1.09)
[2021-08-18 10:22] LABS: CHLORIDE 115 mmol/L (98-107); SODIUM 154 mmol/L (136-145)
[2021-08-18 10:24] LABS: ANION GAP 6 MMOL/L (8-16); CALCIUM 8.6 mg/dL (8.5-10.1); CO2 33 mmol/L (21-32); LIPASE 123 U/L (73-393); MAGNESIUM 1.4 mg/dL (1.8-2.4)
[2021-08-18 10:25] LABS: ALBUMIN 1.8 g/dl (3.4-5.0); BLOOD UREA NITROGEN 26.6 mg/dL (7-18)
[2021-08-18 10:26] LABS: AMYLASE 196 U/L (25-115)
[2021-08-18 10:27] LABS: CREATININE 0.7 mg/dL (0.55-1.3); SGOT/AST 41 U/L (15-37); SGPT/ALT 218 U/L (13-61)
[2021-08-18 10:28] LABS: PHOSPHOROUS 3.4 mg/dL (2.5-4.9)
[2021-08-18 10:29] LABS: TOT PROT 5.3 g/dl (6.4-8.2)
[2021-08-18 10:30] LABS: BILIRUBIN,TOTAL 0.9 mg/dL (0.2-1)
[2021-08-18 10:31] LABS: ALK PHOS 120 U/L (45-117)
[2021-08-18 10:32] LABS: LDH 543 U/L (84-246)
[2021-08-18] MEDS: INSULIN REGULAR 100 UNITS in SODIUM CHLORIDE 99 ML IVPB SCH (10:33)
[2021-08-18 10:36] LABS: WHITE BLOOD COUNT 38.7 K/mm3 (4.0-10.0)
[2021-08-18 10:38] LABS: GLUCOSE,RANDOM 476 mg/dL (74-106)
[2021-08-18] MEDS ORDERED: CASPOFUNGIN ACETATE 70 MG in SODIUM CHLORIDE 250 ML IVPB ONE (10:50)
[2021-08-18] MEDS ORDERED: DEXTROSE 5% IVPB SCH (11:00)
[2021-08-18] MEDS ORDERED: VORICONAZOLE IVPB SCH (11:00)
[2021-08-18] MEDS ORDERED: WATER IVPB SCH (11:00)
[2021-08-18] MEDS: PROPOFOL 1,000,000 MCG/100 ML VIAL IVPB SCH (11:24)
[2021-08-18] MEDS: PANTOPRAZOLE SODIUM 40 MG VIAL IVPUSH SCH (11:25)
[2021-08-18] MEDS: ATOVAQUONE 750 MG/5 ML (UNIT-DOSE PACKAGING) GT SCH (11:25)
[2021-08-18] MEDS: DESMOPRESSIN ACETATE 1 MCG in SODIUM CHLORIDE 50 ML IVPB SCH ×2 (12:42→21:37)
[2021-08-18] MEDS: VASOPRESSIN 40 UNITS/100 ML BAG IV SCH ×2 (12:48→16:06)
[2021-08-18 16:01] LABS: BASO % 0.1 % (0-2.0); HEMATOCRIT 26.9 % (32.4-45.2); HEMOGLOBIN 8.3 GM/dL (10.7-15.3); MCH 27.9 pg (25.7-33.7); MCHC 30.8 g/dl (32.0-36.0); MEAN CELL VOLUME 90.6 fl (80-96); MEAN PLT VOLUME 9.8 fl (7.5-11.1); MONO % 2.5 % (3.8-10.2); NEUT % 95.4 % (42.8-82.8); PLATELET COUNT 403 10^3/uL (134-434); RBC 2.97 M/mm3 (3.60-5.2); RDW 18.5 % (11.6-15.6)
[2021-08-18 16:06] LABS: INR 1.03 (0.83-1.09); PROTHROMBIN TIME (PATIENT) 11.9 SEC (9.7-13.0)
[2021-08-18 16:08] LABS: ACTIVATED PTT 33.1 SECONDS (25.2-36.5)
[2021-08-18 16:11] LABS: CHLORIDE 116 mmol/L (98-107); SODIUM 154 mmol/L (136-145)
[2021-08-18 16:13] LABS: ANION GAP 4 MMOL/L (8-16); CO2 34 mmol/L (21-32); LIPASE 143 U/L (73-393); MAGNESIUM 1.3 mg/dL (1.8-2.4)
[2021-08-18 16:14] LABS: ALBUMIN 1.7 g/dl (3.4-5.0); BLOOD UREA NITROGEN 23.3 mg/dL (7-18); GLUCOSE,RANDOM 372 mg/dL (74-106)
[2021-08-18 16:15] LABS: AMYLASE 297 U/L (25-115); WHITE BLOOD COUNT 37.2 K/mm3 (4.0-10.0)
[2021-08-18 16:16] LABS: CREATININE 0.7 mg/dL (0.55-1.3); SGOT/AST 37 U/L (15-37); SGPT/ALT 183 U/L (13-61)
[2021-08-18] MEDS ORDERED: LACTATED RINGERS SOLUTION 1000 ML INFUS.BAG IV ONE (16:16)
[2021-08-18 16:18] LABS: TOT PROT 4.8 g/dl (6.4-8.2)
[2021-08-18 16:19] LABS: BILIRUBIN,TOTAL 0.5 mg/dL (0.2-1)
[2021-08-18 16:20] LABS: ALLENS TEST POSITIVE; ARTERIAL BLD GAS O2 SATURATION 98.1 % (95-98); ARTERIAL BLOOD GAS BASE EXCESS 5.2 mmol/L (-2-2); ARTERIAL BLOOD GAS PO2 130.5 mmHg (80-100); ARTERIAL BLOOD GAS pH 7.285 (7.350-7.450)
[2021-08-18 16:20] LABS: ALK PHOS 113 U/L (45-117)
[2021-08-18 16:21] LABS: LDH 530 U/L (84-246)
[2021-08-18 16:21] LABS: VENT MODE A/C; VENT RATE 12
[2021-08-18] MEDS ORDERED: NOREPINEPHRINE BITARTRATE 4 MG/4 ML ML IV ONE (16:22)
[2021-08-18] MEDS: NOREPINEPHRINE BITARTRATE 16,000 MCG in SODIUM CHLORIDE 484 ML IV SCH (16:28)
[2021-08-18 16:56] LABS: ANISOCYTOSIS 2+; MACROCYTOSIS 0; OVALOCYTE 1+; TARGET CELLS 0
[2021-08-18] MEDS: WATER IVPB SCH (16:58)
[2021-08-18] MEDS: VORICONAZOLE IVPB SCH (16:58)
[2021-08-18] MEDS: DEXTROSE 5% IVPB SCH (16:58)
[2021-08-18 21:17] LABS: HEMATOCRIT 28.9 % (32.4-45.2); HEMOGLOBIN 9.1 GM/dL (10.7-15.3); LYMPH % 1.3 % (8-40); MCH 27.7 pg (25.7-33.7); MCHC 31.5 g/dl (32.0-36.0); MEAN CELL VOLUME 87.8 fl (80-96); MEAN PLT VOLUME 9.8 fl (7.5-11.1); MONO % 1.6 % (3.8-10.2); NEUT % 97.1 % (42.8-82.8); PLATELET COUNT 471 10^3/uL (134-434); RBC 3.29 M/mm3 (3.60-5.2); RDW 18.2 % (11.6-15.6)
[2021-08-18 21:18] LABS: WHITE BLOOD COUNT 43.5 K/mm3 (4.0-10.0)
[2021-08-18 21:22] LABS: INR 0.99 (0.83-1.09); PROTHROMBIN TIME (PATIENT) 11.4 SEC (9.7-13.0)
[2021-08-18 21:24] LABS: ACTIVATED PTT 32.6 SECONDS (25.2-36.5)
[2021-08-18 21:25] LABS: ARTERIAL BLD GAS O2 SATURATION 99.3 % (95-98); ARTERIAL BLOOD GAS BASE EXCESS 6.6 mmol/L (-2-2); ARTERIAL BLOOD GAS PO2 181.1 mmHg (80-100); ARTERIAL BLOOD GAS pH 7.493 (7.350-7.450)
[2021-08-18 21:26] LABS: ALLENS TEST POSITIVE; VENT MODE A/C; VENT RATE 20
[2021-08-18 21:35] LABS: CHLORIDE 112 mmol/L (98-107); SODIUM 150 mmol/L (136-145)
[2021-08-18 21:37] LABS: ANION GAP 7 MMOL/L (8-16); CALCIUM 8.3 mg/dL (8.5-10.1); CO2 32 mmol/L (21-32); LIPASE 164 U/L (73-393); MAGNESIUM 1.2 mg/dL (1.8-2.4)
[2021-08-18 21:38] LABS: ALBUMIN 1.9 g/dl (3.4-5.0); BLOOD UREA NITROGEN 22.1 mg/dL (7-18); GLUCOSE,RANDOM 262 mg/dL (74-106)
[2021-08-18] MEDS: CHLORHEXIDINE GLUCONATE 4% CLEANSER FOR DECOLONIZATION TP SCH (21:38)
[2021-08-18 21:39] LABS: AMYLASE 292 U/L (25-115)
[2021-08-18 21:40] LABS: CREATININE 0.6 mg/dL (0.55-1.3); SGOT/AST 51 U/L (15-37); SGPT/ALT 191 U/L (13-61)
[2021-08-18 21:41] LABS: PHOSPHOROUS 3.4 mg/dL (2.5-4.9)
[2021-08-18 21:42] LABS: TOT PROT 5.7 g/dl (6.4-8.2)
[2021-08-18 21:43] LABS: BILIRUBIN,TOTAL 0.6 mg/dL (0.2-1)
[2021-08-18 21:44] LABS: ALK PHOS 140 U/L (45-117)
[2021-08-18 21:48] LABS: LDH 648 U/L (84-246)
[2021-08-18 21:52] LABS: ANISOCYTOSIS 2+; MACROCYTOSIS 1+; TARGET CELLS 1+
[2021-08-19] MEDS ORDERED: DEXTROSE 5%-WATER - 50 ML IVPB ONE ×4 (01:22→22:04)
[2021-08-19] MEDS ORDERED: PIPERACILLIN/TAZOBACTAM 3.375 GM VIAL IVPB ONE ×4 (01:22→22:03)
[2021-08-19] MEDS: methylPREDNISolone NA SUCC 40 MG/1 ML VIAL IVPUSH SCH ×3 (01:25→18:08)
[2021-08-19] MEDS: WATER IVPB SCH ×2 (02:57→15:28)
[2021-08-19] MEDS: DEXTROSE 5% IVPB SCH ×2 (02:57→15:28)
[2021-08-19] MEDS: VORICONAZOLE IVPB SCH ×2 (02:57→15:28)
[2021-08-19] MEDS: PIPERACILLIN/TAZOB 3.375 GM 3.375 GM in DEXTROSE 5%-WATER - 50 ML IVPB SCH ×4 (03:03→22:18)
[2021-08-19 03:04] LABS: HEMOGLOBIN 8.6 GM/dL (10.7-15.3); MCH 27.9 pg (25.7-33.7); MEAN CELL VOLUME 87.2 fl (80-96); MEAN PLT VOLUME 9.9 fl (7.5-11.1); PLATELET COUNT 448 10^3/uL (134-434); RBC 3.09 M/mm3 (3.60-5.2); RDW 18.1 % (11.6-15.6)
[2021-08-19 03:07] LABS: WHITE BLOOD COUNT 44.4 K/mm3 (4.0-10.0)
[2021-08-19 03:17] LABS: INR 1.04 (0.83-1.09)
[2021-08-19 03:19] LABS: ACTIVATED PTT 34.7 SECONDS (25.2-36.5)
[2021-08-19 03:22] LABS: CHLORIDE 107 mmol/L (98-107); SODIUM 144 mmol/L (136-145)
[2021-08-19 03:25] LABS: ANION GAP 7 MMOL/L (8-16); CALCIUM 7.8 mg/dL (8.5-10.1); CO2 31 mmol/L (21-32); LIPASE 168 U/L (73-393)
[2021-08-19 03:26] LABS: ALBUMIN 1.7 g/dl (3.4-5.0); GLUCOSE,RANDOM 267 mg/dL (74-106)
[2021-08-19 03:27] LABS: AMYLASE 294 U/L (25-115)
[2021-08-19 03:28] LABS: CREATININE 0.5 mg/dL (0.55-1.3); SGOT/AST 58 U/L (15-37); SGPT/ALT 164 U/L (13-61)
[2021-08-19 03:30] LABS: TOT PROT 5.4 g/dl (6.4-8.2)
[2021-08-19 03:31] LABS: BILIRUBIN,TOTAL 0.6 mg/dL (0.2-1); LDH 705 U/L (84-246)
[2021-08-19 03:32] LABS: ALK PHOS 145 U/L (45-117)
[2021-08-19 03:34] LABS: ARTERIAL BLOOD GAS PO2 150.9 mmHg (80-100); ARTERIAL BLOOD GAS pH 7.437 (7.350-7.450)
[2021-08-19 03:36] LABS: VENT MODE A/C; VENT RATE 20
[2021-08-19 04:19] LABS: ANISOCYTOSIS 3+; MACROCYTOSIS 0
[2021-08-19] MEDS: ALBUTEROL SO4 2.5/IPRATROPIUM 0.5 INH SOL 3 ML VIAL.NEB. NEB SCH ×4 (07:53→20:15)
[2021-08-19 08:48] LABS: EPI CELLS >36 /uL (0-25.1); HYALINE CASTS 6 /uL (0-3.1); URINE APPEARANCE CLEAR; URINE BACTERIA 7 /uL (0-1359); URINE BILIRUBIN NEGATIVE (NEGATIVE); URINE COLOR YELLOW; URINE GLUCOSE (UA) 2+ (NEGATIVE); URINE KETONE NEGATIVE (NEGATIVE); URINE LEUK ESTERASE TRACE (NEGATIVE); URINE NITRITE NEGATIVE (NEGATIVE); URINE PROTEIN 1+ (NEGATIVE); URINE RBC 295 /uL (0-23.9); URINE UROBILINOGEN 0.2 mg/dL (0.2-1.0); URINE WBC 430 /uL (0-25.8)
[2021-08-19] MEDS: PANTOPRAZOLE SODIUM 40 MG VIAL IVPUSH SCH (09:01)
[2021-08-19] MEDS: ATOVAQUONE 750 MG/5 ML (UNIT-DOSE PACKAGING) GT SCH (09:05)
[2021-08-19 10:16] LABS: ARTERIAL BLD GAS O2 SATURATION 98.1 % (95-98); ARTERIAL BLOOD GAS BASE EXCESS 3.3 mmol/L (-2-2); ARTERIAL BLOOD GAS PO2 120.5 mmHg (80-100); ARTERIAL BLOOD GAS pH 7.345 (7.350-7.450)
[2021-08-19 10:17] LABS: ALLENS TEST POSITIVE; VENT MODE AC; VENT RATE 20
[2021-08-19] MEDS: DESMOPRESSIN ACETATE 1 MCG in SODIUM CHLORIDE 50 ML IVPB SCH (10:29)
[2021-08-19 10:49] LABS: HEMATOCRIT 26.7 % (32.4-45.2); HEMOGLOBIN 8.3 GM/dL (10.7-15.3); MCH 27.4 pg (25.7-33.7); MEAN CELL VOLUME 88.5 fl (80-96); MEAN PLT VOLUME 10.6 fl (7.5-11.1); PLATELET COUNT 435 10^3/uL (134-434); RBC 3.02 M/mm3 (3.60-5.2); RDW 18.1 % (11.6-15.6)
[2021-08-19 10:57] LABS: INR 0.99 (0.83-1.09); PROTHROMBIN TIME (PATIENT) 11.4 SEC (9.7-13.0)
[2021-08-19 10:59] LABS: WHITE BLOOD COUNT 47.3 K/mm3 (4.0-10.0)
[2021-08-19 11:00] LABS: ACTIVATED PTT 30.8 SECONDS (25.2-36.5)
[2021-08-19 11:08] LABS: CHLORIDE 105 mmol/L (98-107); SODIUM 143 mmol/L (136-145)
[2021-08-19 11:10] LABS: ANION GAP 8 MMOL/L (8-16); CO2 30 mmol/L (21-32); LIPASE 125 U/L (73-393); MAGNESIUM 1.1 mg/dL (1.8-2.4)
[2021-08-19 11:11] LABS: ALBUMIN 1.8 g/dl (3.4-5.0); BLOOD UREA NITROGEN 19.6 mg/dL (7-18); CALCIUM 7.7 mg/dL (8.5-10.1); GLUCOSE,RANDOM 254 mg/dL (74-106)
[2021-08-19 11:13] LABS: CREATININE 0.5 mg/dL (0.55-1.3); SGOT/AST 51 U/L (15-37); SGPT/ALT 143 U/L (13-61)
[2021-08-19 11:15] LABS: PHOSPHOROUS 3.6 mg/dL (2.5-4.9); TOT PROT 5.2 g/dl (6.4-8.2)
[2021-08-19 11:16] LABS: BILIRUBIN,TOTAL 0.5 mg/dL (0.2-1)
[2021-08-19 11:17] LABS: LDH 672 U/L (84-246)
[2021-08-19 11:18] LABS: ALK PHOS 141 U/L (45-117)
[2021-08-19 11:52] LABS: AMYLASE 223 U/L (25-115)
[2021-08-19] MEDS: NICARDIPINE 25 MG in DEXTROSE 5%-WATER - 240 ML IVPB SCH ×3 (12:00→23:05)
[2021-08-19] MEDS ORDERED: MAGNESIUM 2GM/50ML STERILE WATER IVPB IVPB ONE (12:24)
[2021-08-19 12:46] LABS: ANISOCYTOSIS 2+; MACROCYTOSIS 0; OVALOCYTE 2+
[2021-08-19] MEDS: KCL 10 MEQ IVPB 10 MEQ/100 ML INFUS.BAG IVPB SCH ×3 (14:29→18:48)
[2021-08-19 14:35] LABS: YEAST MANY (NEGATIVE)
[2021-08-19 15:35] LABS: HEMATOCRIT 24.4 % (32.4-45.2); HEMOGLOBIN 7.6 GM/dL (10.7-15.3); MCH 27.3 pg (25.7-33.7); MCHC 31.2 g/dl (32.0-36.0); MEAN CELL VOLUME 87.5 fl (80-96); MEAN PLT VOLUME 10.1 fl (7.5-11.1); PLATELET COUNT 403 10^3/uL (134-434); RBC 2.78 M/mm3 (3.60-5.2); RDW 17.9 % (11.6-15.6)
[2021-08-19 15:40] LABS: WHITE BLOOD COUNT 45.2 K/mm3 (4.0-10.0)
[2021-08-19 15:41] LABS: PROTHROMBIN TIME (PATIENT) 11.5 SEC (9.7-13.0)
[2021-08-19 15:43] LABS: ACTIVATED PTT 29.9 SECONDS (25.2-36.5)
[2021-08-19] MEDS: CASPOFUNGIN ACETATE 50 MG in SODIUM CHLORIDE 250 ML IVPB SCH ×2 (15:45→17:39)
[2021-08-19 15:46] LABS: ARTERIAL BLD GAS O2 SATURATION 99.2 % (95-98); ARTERIAL BLOOD GAS BASE EXCESS 4.6 mmol/L (-2-2); ARTERIAL BLOOD GAS PO2 169.5 mmHg (80-100); ARTERIAL BLOOD GAS pH 7.427 (7.350-7.450)
[2021-08-19 15:47] LABS: ALLENS TEST POSITIVE; VENT MODE AC
[2021-08-19 15:48] LABS: VENT RATE 20
[2021-08-19 15:53] LABS: CHLORIDE 103 mmol/L (98-107); SODIUM 141 mmol/L (136-145)
[2021-08-19 15:55] LABS: ANION GAP 7 MMOL/L (8-16); CO2 30 mmol/L (21-32)
[2021-08-19 15:56] LABS: BLOOD UREA NITROGEN 21.2 mg/dL (7-18); CALCIUM 7.7 mg/dL (8.5-10.1); LIPASE 169 U/L (73-393)
[2021-08-19 15:57] LABS: ALBUMIN 1.6 g/dl (3.4-5.0); GLUCOSE,RANDOM 282 mg/dL (74-106)
[2021-08-19 15:58] LABS: AMYLASE 176 U/L (25-115); SGOT/AST 49 U/L (15-37); SGPT/ALT 120 U/L (13-61)
[2021-08-19 15:59] LABS: BILIRUBIN,DIRECT 0.5 mg/dL (0.0-0.2); CREATININE 0.5 mg/dL (0.55-1.3); PHOSPHOROUS 3.2 mg/dL (2.5-4.9)
[2021-08-19 16:00] LABS: TOT PROT 4.9 g/dl (6.4-8.2)
[2021-08-19 16:01] LABS: BILIRUBIN,TOTAL 0.6 mg/dL (0.2-1)
[2021-08-19 16:03] LABS: ALK PHOS 145 U/L (45-117); LDH 618 U/L (84-246)
[2021-08-19] MEDS ORDERED: SODIUM CHLORIDE 0.45% 1,000 ML IV SCH (16:31)
[2021-08-19] MEDS: VASOPRESSIN 40 UNITS/100 ML BAG IV SCH (16:35)
[2021-08-19] MEDS: NOREPINEPHRINE BITARTRATE 16,000 MCG in SODIUM CHLORIDE 484 ML IV SCH (17:41)
[2021-08-19 17:54] LABS: ANISOCYTOSIS 2+; MACROCYTOSIS 1+; OVALOCYTE 1+; PLATELET ESTIMATE NORMAL
[2021-08-19 20:10] LABS: EPI CELLS 11 /uL (0-25.1); HYALINE CASTS 16 /uL (0-3.1); URINE APPEARANCE CLOUDY; URINE BACTERIA 9 /uL (0-1359); URINE BILIRUBIN NEGATIVE (NEGATIVE); URINE COLOR DK YELLOW; URINE GLUCOSE (UA) 2+ (NEGATIVE); URINE KETONE NEGATIVE (NEGATIVE); URINE LEUK ESTERASE 2+ (NEGATIVE); URINE NITRITE NEGATIVE (NEGATIVE); URINE PROTEIN 1+ (NEGATIVE); URINE WBC 743 /uL (0-25.8)
[2021-08-19 20:52] LABS: ARTERIAL BLD GAS O2 SATURATION 98.8 % (95-98); ARTERIAL BLOOD GAS BASE EXCESS 0.5 mmol/L (-2-2); ARTERIAL BLOOD GAS PO2 138.2 mmHg (80-100); ARTERIAL BLOOD GAS pH 7.404 (7.350-7.450)
[2021-08-19 20:54] LABS: VENT MODE A/C; VENT RATE 20
[2021-08-19 22:04] LABS: URINE RBC 83.4 /uL (0-23.9); YEAST MANY (NEGATIVE)
[2021-08-19] MEDS: INSULIN REGULAR 100 UNITS in SODIUM CHLORIDE 99 ML IVPB SCH (22:22)
[2021-08-19] MEDS: CHLORHEXIDINE GLUCONATE 4% CLEANSER FOR DECOLONIZATION TP SCH (22:23)
[2021-08-20] MEDS: methylPREDNISolone NA SUCC 40 MG/1 ML VIAL IVPUSH SCH ×2 (01:33→09:10)
[2021-08-20] MEDS: WATER IVPB SCH (02:31)
[2021-08-20] MEDS: VORICONAZOLE IVPB SCH (02:31)
[2021-08-20] MEDS: DEXTROSE 5% IVPB SCH (02:31)
[2021-08-20 02:32] LABS: MAGNESIUM 1.6 mg/dL (1.8-2.4)
[2021-08-20 02:33] LABS: ALBUMIN 1.5 g/dl (3.4-5.0); BLOOD UREA NITROGEN 21.1 mg/dL (7-18); CALCIUM 7.4 mg/dL (8.5-10.1)
[2021-08-20 02:35] LABS: CREATININE 0.6 mg/dL (0.55-1.3)
[2021-08-20 02:36] LABS: PHOSPHOROUS 3.1 mg/dL (2.5-4.9)
[2021-08-20 02:37] LABS: TOT PROT 4.8 g/dl (6.4-8.2)
[2021-08-20 02:38] LABS: BILIRUBIN,TOTAL 0.6 mg/dL (0.2-1)
[2021-08-20 03:15] LABS: ARTERIAL BLD GAS O2 SATURATION 98.3 % (95-98); ARTERIAL BLOOD GAS BASE EXCESS 2.5 mmol/L (-2-2); ARTERIAL BLOOD GAS PO2 120.7 mmHg (80-100); ARTERIAL BLOOD GAS pH 7.383 (7.350-7.450)
[2021-08-20 03:16] LABS: VENT MODE A/C; VENT RATE 20
[2021-08-20] MEDS ORDERED: PIPERACILLIN/TAZOBACTAM 3.375 GM VIAL IVPB ONE ×2 (04:28→07:41)
[2021-08-20] MEDS ORDERED: DEXTROSE 5%-WATER - 50 ML IVPB ONE ×2 (04:29→07:41)
[2021-08-20] MEDS: PIPERACILLIN/TAZOB 3.375 GM 3.375 GM in DEXTROSE 5%-WATER - 50 ML IVPB SCH ×2 (04:35→09:10)
[2021-08-20] MEDS: NICARDIPINE 25 MG in DEXTROSE 5%-WATER - 240 ML IVPB SCH (04:37)
[2021-08-20 06:12] LABS: CHLORIDE 98 mmol/L (98-107); SODIUM 135 mmol/L (136-145)
[2021-08-20 06:14] LABS: ANION GAP 9 MMOL/L (8-16); CO2 28 mmol/L (21-32); LIPASE 259 U/L (73-393); MAGNESIUM 1.3 mg/dL (1.8-2.4)
[2021-08-20 06:15] LABS: BLOOD UREA NITROGEN 21.8 mg/dL (7-18); CALCIUM 7.4 mg/dL (8.5-10.1); GLUCOSE,RANDOM 390 mg/dL (74-106)
[2021-08-20 06:16] LABS: ALBUMIN 1.5 g/dl (3.4-5.0); AMYLASE 123 U/L (25-115)
[2021-08-20 06:17] LABS: CREATININE 0.6 mg/dL (0.55-1.3); SGOT/AST 55 U/L (15-37); SGPT/ALT 93 U/L (13-61)
[2021-08-20 06:18] LABS: PHOSPHOROUS 2.9 mg/dL (2.5-4.9)
[2021-08-20 06:19] LABS: TOT PROT 4.8 g/dl (6.4-8.2)
[2021-08-20 06:20] LABS: BILIRUBIN,TOTAL 0.6 mg/dL (0.2-1); LDH 597 U/L (84-246)
[2021-08-20 06:21] LABS: ALK PHOS 165 U/L (45-117)
[2021-08-20] MEDS ORDERED: MIDAZOLAM HCL 2 MG/2 ML SINGLE DOSE VIAL IVPUSH PRN (07:33)
[2021-08-20] MEDS ORDERED: MORPHINE SULFATE/0.9% NACL/PF 100 MG/100 ML BAG IVPB SCH (07:45)
[2021-08-20 07:48] LABS: HEMATOCRIT 22.6 % (32.4-45.2); MCH 27.4 pg (25.7-33.7); MCHC 31.2 g/dl (32.0-36.0); MEAN CELL VOLUME 87.7 fl (80-96); MEAN PLT VOLUME 10.3 fl (7.5-11.1); PLATELET COUNT 390 10^3/uL (134-434); RBC 2.57 M/mm3 (3.60-5.2)
[2021-08-20 07:51] LABS: INR 0.98 (0.83-1.09); PROTHROMBIN TIME (PATIENT) 11.3 SEC (9.7-13.0)
[2021-08-20 07:53] LABS: ACTIVATED PTT 29.4 SECONDS (25.2-36.5)
[2021-08-20 08:10] LABS: MAGNESIUM 1.5 mg/dL (1.8-2.4)
[2021-08-20 08:11] LABS: CALCIUM 7.4 mg/dL (8.5-10.1)
[2021-08-20 08:12] LABS: ALBUMIN 1.5 g/dl (3.4-5.0); BLOOD UREA NITROGEN 22.1 mg/dL (7-18)
[2021-08-20 08:13] VITALS: TEMP 100
[2021-08-20 08:13] LABS: CREATININE 0.6 mg/dL (0.55-1.3)
[2021-08-20 08:15] LABS: PHOSPHOROUS 2.9 mg/dL (2.5-4.9); TOT PROT 4.8 g/dl (6.4-8.2)
[2021-08-20] MEDS: ALBUTEROL SO4 2.5/IPRATROPIUM 0.5 INH SOL 3 ML VIAL.NEB. NEB SCH (08:16)
[2021-08-20 08:17] LABS: BILIRUBIN,TOTAL 0.6 mg/dL (0.2-1)
[2021-08-20 08:18] LABS: WHITE BLOOD COUNT 48.5 K/mm3 (4.0-10.0)
[2021-08-20] MEDS: INSULIN REGULAR 100 UNITS in SODIUM CHLORIDE 99 ML IVPB SCH (08:20)
[2021-08-20] MEDS ORDERED: HEPARIN NA (PORCINE) 5,000 UNITS/ML 1ML VIAL IVPUSH ONE (09:00)
[2021-08-20 09:03] LABS: ARTERIAL BLD GAS O2 SATURATION 98.5 % (95-98); ARTERIAL BLOOD GAS PO2 120.5 mmHg (80-100); ARTERIAL BLOOD GAS pH 7.448 (7.350-7.450)
[2021-08-20 09:13] LABS: VENT MODE A/C; VENT RATE 20
[2021-08-20] MEDS: VASOPRESSIN 40 UNITS/100 ML BAG IV SCH (09:15)
[2021-08-20] MEDS: PANTOPRAZOLE SODIUM 40 MG VIAL IVPUSH SCH (09:16)
[2021-08-20] MEDS: ATOVAQUONE 750 MG/5 ML (UNIT-DOSE PACKAGING) GT SCH (09:22)
[2021-08-20 10:03] LABS: ANISOCYTOSIS 1+; MACROCYTOSIS 0
[2021-08-20] MEDS ORDERED: LORazepam 2 MG/ML SDV VIAL IVPUSH PRN (10:15)
[2021-08-20 10:53] LABS: BILIRUBIN,DIRECT 0.4 mg/dL (0.0-0.2)
[2021-08-20 12:41] VITALS: PULSE 95
[2021-08-20 12:50] LABS: EPI CELLS 5 /uL (0-25.1); HYALINE CASTS 1 /uL (0-3.1); URINE APPEARANCE CLEAR; URINE BACTERIA 2 /uL (0-1359); URINE BILIRUBIN NEGATIVE (NEGATIVE); URINE COLOR YELLOW; URINE GLUCOSE (UA) 3+ (NEGATIVE); URINE KETONE NEGATIVE (NEGATIVE); URINE LEUK ESTERASE NEGATIVE (NEGATIVE); URINE NITRITE NEGATIVE (NEGATIVE); URINE PROTEIN 1+ (NEGATIVE); URINE RBC 19 /uL (0-23.9); URINE UROBILINOGEN 0.2 mg/dL (0.2-1.0)
[2021-08-20 13:45] LABS: URINE WBC MODERATE /uL (0-25.8)
[2021-08-20 13:46] LABS: YEAST MODERATE PRESENT (NEGATIVE)
[2021-08-20 14:25] VITALS: BP 121/80
== END 2021-08-20 11:20 | disposition expired | DRG 870 ==
LOC: JER 00:43 → JERBED 03:25 → J4W 13:47 → JICU 08-11 19:05
PROVIDERS: ADMIT Hospitalist; ATTEND Internal Medicine Pulmonary Disease
PROC: 5A1955Z Respiratory Ventilation, Greater than 96 Consecutive Hours (ICD-10-PCS; principal; 2021-08-11)
PROC: 0BH17EZ Insertion of Endotracheal Airway into Trachea, Via Natural or Artificial Opening (ICD-10-PCS; 2021-08-11)
PROC: 30233N1 Transfusion of Nonautologous Red Blood Cells into Peripheral Vein, Percutaneous Approach (ICD-10-PCS; 2021-08-13)
PROC: 4A133B1 Monitoring of Arterial Pressure, Peripheral, Percutaneous Approach (ICD-10-PCS; 2021-08-17)
PROC: 4A133J1 Monitoring of Arterial Pulse, Peripheral, Percutaneous Approach (ICD-10-PCS; 2021-08-17)
DX: A41.89 Other specified sepsis (principal); J96.21 Acute and chronic respiratory failure with hypoxia; I50.33 Acute on chronic diastolic (congestive) heart failure; J81.0 Acute pulmonary edema; K72.00 Acute and subacute hepatic failure without coma; G93.6 Cerebral edema; J18.9 Pneumonia, unspecified organism; R65.21 Severe sepsis with septic shock; I61.8 Other nontraumatic intracerebral hemorrhage; J84.9 Interstitial pulmonary disease, unspecified; E87.2 Acidosis; R64 Cachexia; E87.0 Hyperosmolality and hypernatremia; I47.1 Supraventricular tachycardia; M34.9 Systemic sclerosis, unspecified; I27.20 Pulmonary hypertension, unspecified; E11.9 Type 2 diabetes mellitus without complications; I10 Essential (primary) hypertension; I95.9 Hypotension, unspecified; D64.9 Anemia, unspecified; K21.9 Gastro-esophageal reflux disease without esophagitis; E78.5 Hyperlipidemia, unspecified; E83.42 Hypomagnesemia; M06.9 Rheumatoid arthritis, unspecified
CPT/HCPCS: 0241U-QW; 36415; 36430; 36600; 70450-TC; 70496-TC; 70498-TC; 71045-TC-FY; 71250-TC; 74018-TC-FY; 74176-TC; 76700-TC; 80048; 80053; 80076; 81003; 82150; 82248; 82272; 82436; 82570; 82803; 82962; 83036; 83605; 83615; 83690; 83735; 83880; 83930; 83935; 84100; 84300; 84484; 85025; 85027; 85384; 85610; 85730; 86140; 86850; 86900; 86901; 86922; 87040; 87086; 87106; 87305; 87449; 93005; 93010; 94002; 94640; 94660; 94761; 97162-GP; 99291; 99292; J0637; J1644; J2597; J3490; P9058; Q9967